=== PATIENT | male | born 1940 ===

== ENCOUNTER 2022-02-24 11:42 | Inpatient (IN) | payer MEDICARE ==
[~2022-02-24] VITALS: Ht 188 cm; Wt 85.5 kg
[2022-02-24] MEDS ORDERED: MULT-445 PO (13:29)
[2022-02-24] MEDS ORDERED: LORA0.5T21 PO (13:29)
[2022-02-24] MEDS ORDERED: POLY17PO5 PO (13:29)
[2022-02-24] MEDS ORDERED: METO-247 PO (13:29)
[2022-02-24] MEDS ORDERED: QUET100T4 PO (13:29)
[2022-02-24] MEDS ORDERED: ONDA4TAB12 PO (13:29)
[2022-02-24] MEDS ORDERED: HYDR-2868 PO (13:29)
[2022-02-24] MEDS ORDERED: TEMA15CA6 PO (13:29)
[2022-02-24] MEDS ORDERED: SERT50TA PO (13:29)
[2022-02-24] MEDS ORDERED: ATORVASTATIN CA80 MG PO (13:29)
[2022-02-24] MEDS ORDERED: QUET50TA5 PO (13:29)
[2022-02-24] MEDS ORDERED: GLUC-12 PO (13:29)
[2022-02-24] MEDS ORDERED: ACET325T21 PO (13:29)
[2022-02-24] MEDS ORDERED: ONDANSETRON ODT 4 MG TAB.RAPDIS PO PRN (13:30)
[2022-02-24] MEDS ORDERED: hydrALAZINE 25 MG TABLET PO PRN (13:30)
[2022-02-24] MEDS ORDERED: POLYETHYLENE GLYCOL 3350 17 GM PACKET. PO PRN (13:30)
[2022-02-24] MEDS ORDERED: MAG HYDROX/AL HYDROX/SIMETH 30 ML ORAL.SUSP PO PRN (13:45)
[2022-02-24] MEDS ORDERED: MAGNESIUM HYDROXIDE 2,400 MG/30 ML ORAL.SUSP. PO PRN (13:45)
[2022-02-24] MEDS ORDERED: ACETAMINOPHEN 325 MG TABLET PO PRN (13:45)
[2022-02-24] MEDS ORDERED: METHYL SALICYLATE/MENTHOL TOPICAL OINTMENT 57GM TUBE. TP PRN (13:45)
[2022-02-24 14:08] VITALS: BP 165/96
[2022-02-24 20:32] LABS: BASO % 0 % (0-3); EOS # 0.1 x10^3/uL (0.0-0.7); EOS % 1 % (0-3); HEMATOCRIT 36.7 % (39.0-53.0); HEMOGLOBIN 12.4 g/dL (13.0-17.5); LYMPH # 1.5 x10^3/uL (1.0-4.8); LYMPH % 18 % (24-48); MEAN CORPUSCULAR HEMOGLOBIN 33 pg (25-35); MEAN CORPUSCULAR HGB CONC 34 g/dL (31-37); MEAN CORPUSCULAR VOLUME 96 fL (79-100); MONO # 0.7 x10^3/uL (0.0-1.1); MONO % 8 % (0-9); NEUT % 73 % (31-73); PLATELET COUNT 224 x10^3/uL (140-400); RED BLOOD COUNT 3.82 x10^6/uL (4.30-5.70); RED CELL DISTRIBUTION WIDTH 13.4 % (11.5-14.5); WHITE BLOOD COUNT 8.3 x10^3/uL (4.0-11.0)
[2022-02-24] MEDS: TEMAZEPAM 15 MG CAPSULE PO SCH (20:33)
[2022-02-24] MEDS: QUEtiapine 50 MG TABLET. PO SCH (20:33)
[2022-02-24 20:48] LABS: ALBUMIN 3.9 g/dL (3.4-5.0); ALBUMIN/GLOBULIN RATIO 1.1 (1.0-1.7); CREATININE 1.8 mg/dL (0.7-1.3); GFR 36.4; MAGNESIUM 2.3 mg/dL (1.8-2.4); TOTAL BILIRUBIN 0.5 mg/dL (0.2-1.0); TOTAL PROTEIN 7.4 g/dL (6.4-8.2)
--- NOTE | 2022-02-24 21:54 | PDOC ---
Exam Note: Jimmy Note: Please also refer to the separate dictated note~for this date of service dictated separately.~Patient seen individually. Discussed the patient with Nursing staff reviewed the chart.~Reviewed interim history and current functioning. Reviewed vital signs,~Labs/ Radiology~and current medications noted below. Continue current treatment with the changes noted in the dictated addendum note Assessment: Vital Signs/I&O: Vital Signs Date Time Temp Pulse Resp B/P (MAP) Pulse Ox O2 Delivery O2 Flow Rate FiO2 02/24/22 14:08 97.8 79 18 165/96 (119) 99 Room Air Labs: Laboratory Tests Test 02/24/22 20:16 White Blood Count 8.3 x10^3/uL (4.0-11.0) Red Blood Count 3.82 x10^6/uL (4.30-5.70) L Hemoglobin 12.4 g/dL (13.0-17.5) L Hematocrit 36.7 % (39.0-53.0) L Mean Corpuscular Volume 96 fL (79-100) Mean Corpuscular Hemoglobin 33 pg (25-35) Mean Corpuscular Hemoglobin Concent 34 g/dL (31-37) Red Cell Distribution Width 13.4 % (11.5-14.5) Platelet Count 224 x10^3/uL (140-400) Neutrophils (%) (Auto) 73 % (31-73) Lymphocytes (%) (Auto) 18 % (24-48) L Monocytes (%) (Auto) 8 % (0-9) Eosinophils (%) (Auto) 1 % (0-3) Basophils (%) (Auto) 0 % (0-3) Neutrophils # (Auto) 6.0 x10^3uL (1.8-7.7) Lymphocytes # (Auto) 1.5 x10^3/uL (1.0-4.8) Monocytes # (Auto) 0.7 x10^3/uL (0.0-1.1) Eosinophils # (Auto) 0.1 x10^3/uL (0.0-0.7) Basophils # (Auto) 0.0 x10^3/uL (0.0-0.2) D-Dimer (Sadia) 1.00 mg/L (0.00-0.50) H Sodium Level 141 mmol/L (136-145) Potassium Level 4.0 mmol/L (3.5-5.1) Chloride Level 108 mmol/L (98-107) H Carbon Dioxide Level 26 mmol/L (21-32) Anion Gap 7 (6-14) Blood Urea Nitrogen 26 mg/dL (8-26) Creatinine 1.8 mg/dL (0.7-1.3) H Estimated GFR (Cockcroft-Gault) 36.4 BUN/Creatinine Ratio 14 (6-20) Glucose Level 110 mg/dL (70-99) H Calcium Level 9.0 mg/dL (8.5-10.1) Magnesium Level 2.3 mg/dL (1.8-2.4) Total Bilirubin 0.5 mg/dL (0.2-1.0) Aspartate Amino Transferase (AST) 17 U/L (15-37) Alanine Aminotransferase (ALT) 17 U/L (16-63) Alkaline Phosphatase 98 U/L (46-116) Total Protein 7.4 g/dL (6.4-8.2) Albumin 3.9 g/dL (3.4-5.0) Albumin/Globulin Ratio 1.1 (1.0-1.7) Current Medications: Meds: Current Medications Medications (Trade) Dose Ordered Sig/Valentino Route PRN Reason Start Time Stop Time Status Last Admin Dose Admin Quetiapine Fumarate (SEROquel) 50 mg QHS PO 02/24/22 21:00 02/24/22 20:33 Temazepam (Restoril) 15 mg QHS PO 02/24/22 21:00 02/24/22 20:33 I have reviewed the current psychotropics carefully including drug interactions. Risk benefit ratio favors no change other than as noted in my dictated progress note. Diagnosis: Problems: (1) Major neurocognitive disorder (2) Dementia in Alzheimer's disease with delusions (3) Dementia in Alzheimer's disease with depression (4) Dementia of the Alzheimer's type with early onset with behavioral disturbance (5) Dementia, vascular, with delusions (6) Dementia, vascular, with depression (7) Anxiety disorder, unspecified (8) Impulse control disorder, unspecified NOAH SEE MD Feb 24, 2022 21:54
[2022-02-24] MEDS: LORazepam 0.5 MG TABLET PO PRN (22:46)
[2022-02-24 22:52] VITALS: BP 110/81
--- NOTE | 2022-02-24 23:01 | HP ---
DATE OF SERVICE: 02/24/2022 ADMIT DATE: 02/24/2022 PSYCHIATRIC ADMISSION HISTORY/EVALUATION This note covers the elements not covered in my initial note of 02/24/2022. IDENTIFYING DATA: The patient is an 81-year-old male referred to us by [facility], who had been caring for him and following him while he was at home living with his , being managed for his progressively worsening dementia and the patient had been drinking dish soap, baby shampoo, cup full of ketchup and cooking oil. He is attempting to eat nonfood items including shaving cream and a bath comb, a cookie jar lid. He is having marked insomnia, throwing items including a printer and thinking it is funny. He was wandering, elopement from the house had been attempted by him. He was pulling items off the wall, putting on 's clothing. He is wearing three hats at the same time. He is a high risk of fall, letting the cat outside. He is turning on all the burners on the stove while the was sleeping and she would wake up and discover it. His behaviors were deemed dangerous, unmanageable, it failed outpatient psychiatric interventions resulting in this referral. CHIEF COMPLAINT: "I don't know." The patient responded after I asked him when he came here. He was walking up and down the hallway, banging on doors, but as I talked to him at some length, he was fairly calm. HISTORY OF PRESENT ILLNESS: The patient has been living at home with his . He has a history of dementia, Alzheimer's vascular type, but the has continued to manage him most recently with the support of hospice. He has had sleep and appetite changes, increasing confusion, paranoia. No active suicidal or homicidal ideation. No clear history of bipolar disorder. PAST PSYCHIATRIC HISTORY: As above. MEDICAL HISTORY: Sick sinus syndrome; chronic kidney disease, stage-III; pacemaker in place; cardiomyopathy; first-degree AV block; dyspnea; orthostatic hypotension; chronic constipation; status post CVA, right side; history of syncope; anemia; degenerative disk disease. ACCU-CHEKS: None. CODE STATUS: DNR. ALLERGIES: Negative. DIET: Regular. CURRENT PSYCHOTROPICS: Ativan 0.5 mg q.6 hours p.r.n. anxiety; Restoril 15 mg at bedtime; Seroquel 100 mg at bedtime, 100 mg in the morning and 50 mg at night; Zoloft 50 mg a day. FAMILY HISTORY: Noncontributory. SOCIAL HISTORY: The patient was being cared at home by his . No history of alcohol, drug abuse, physical, sexual, elder abuse. He is not known to be a perpetrator. 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 No alcohol or drug abuse history. REVIEW OF SYSTEMS: No CV, , pulmonary, eye, ENT system symptoms on review. MENTAL STATUS EXAM: Oriented to himself. Insight, judgment, recent and remote memory, attention, concentration, fund of knowledge poor consistent with his diagnosis. IMPRESSION: Major neurocognitive disorder; Alzheimer vascular with delusion; depression; behavioral disturbance; anxiety disorder, unspecified; impulse control disorder, unspecified. Rest as above. PLAN: Admit to Geropsychiatry unit at [facility]. I will see the patient daily individually from a psychiatric standpoint, medical followup, Dr. Wilkerson/Dr. Miller. Continue the patient on his current psychotropics, observe baseline, adjust as clinically indicated. ESTIMATED LENGTH OF STAY: 10 to 12 days. DISPOSITION PLANS: Possible snf placement when stable. ELIZABETH/REBECCA/RORO DR: Darren TID: [id number]
[2022-02-25 06:33] VITALS: BP 124/69
[2022-02-25] MEDS: METOPROLOL SUCC 24HR ER 50 MG TAB.ER.24H. PO SCH (07:45)
[2022-02-25] MEDS: MULTIVITAMIN with MINERAL TABLET. PO SCH (07:45)
[2022-02-25] MEDS: QUEtiapine 100 MG TABLET. PO SCH (07:45)
[2022-02-25] MEDS: GLUCOSAMINE/CHOND 500/400MG CAPSULE PO SCH (07:45)
[2022-02-25] MEDS ORDERED: SERTRALINE 50 MG TABLET. PO SCH (09:00)
[2022-02-25] MEDS ORDERED: ATORVASTATIN CALCIUM 20 MG TABLET PO SCH (09:00)
[2022-02-25 12:14] LABS: THYROXINE 4.8 ug/dL (4.5-12.0)
[2022-02-25 15:56] LABS: CHOLESTEROL/HDL RATIO 4.7; THYROID STIM HORMONE (TSH) 3.666 uIU/mL (0.358-3.740)
[2022-02-25 16:09] VITALS: BP 156/80
[2022-02-25] MEDS: LORazepam 0.5 MG TABLET PO PRN (18:28)
[2022-02-25] MEDS: ATORVASTATIN CALCIUM 20 MG TABLET PO SCH (20:48)
[2022-02-25] MEDS: TEMAZEPAM 15 MG CAPSULE PO SCH (20:48)
[2022-02-25] MEDS: QUEtiapine 50 MG TABLET. PO SCH (20:48)
--- NOTE | 2022-02-25 21:35 | PDOC ---
Exam Note: Jimmy Note: Please also refer to the separate dictated note~for this date of service dictated separately.~Patient seen individually. Discussed the patient with Nursing staff reviewed the chart.~Reviewed interim history and current functioning. Reviewed vital signs,~Labs/ Radiology~and current medications noted below. Continue current treatment with the changes noted in the dictated addendum note Assessment: Vital Signs/I&O: Vital Signs Date Time Temp Pulse Resp B/P (MAP) Pulse Ox O2 Delivery O2 Flow Rate FiO2 02/25/22 16:09 98.1 74 20 156/80 (105) 97 02/25/22 06:33 Room Air I & O 02/24/22 02/24/22 02/25/22 15:00 23:00 07:00 Intake Total 240 ml 340 ml Balance 240 ml 340 ml Labs: Laboratory Tests Test 02/25/22 06:26 SARS-CoV-2 (PCR) Not detected (NOT DETECTD) Current Medications: Meds: Laboratory Tests Test 02/25/22 06:26 Coronavirus (COVID-19)(PCR) Not detected Current Medications Medications (Trade) Dose Ordered Sig/Valentino Route PRN Reason Start Time Stop Time Status Last Admin Dose Admin Acetaminophen (Tylenol) 650 mg PRN Q4HRS PRN PO MILD PAIN / TEMP > 100.3'F 02/24/22 13:30 Hydralazine HCl (Apresoline) 25 mg PRN QID PRN PO HYPERTENSION 02/24/22 13:30 Lorazepam (Ativan) 0.5 mg PRN Q6HRS PRN PO ANXIETY 02/24/22 13:30 02/25/22 18:28 Ondansetron HCl (Zofran Odt) 4 mg PRN Q4HRS PRN PO NAUSEA/VOMITING 02/24/22 13:30 Polyethylene Glycol (miraLAX) 17 gm PRN DAILY PRN PO 1ST CHOICE CONSTIPATION 02/24/22 13:30 Quetiapine Fumarate (SEROquel) 50 mg QHS PO 02/24/22 21:00 02/25/22 20:48 Quetiapine Fumarate (SEROquel) 100 mg DAILY PO 02/25/22 09:00 02/25/22 07:45 Sertraline HCl (Zoloft) 50 mg DAILY PO 02/25/22 09:00 02/25/22 17:01 DC 02/25/22 07:45 Temazepam (Restoril) 15 mg QHS PO 02/24/22 21:00 02/25/22 20:48 Atorvastatin Calcium (Lipitor) 80 mg DAILY PO 02/25/22 09:00 02/25/22 11:05 DC Glucosamine/ Chondroitin (Glucosamine-Chondroitin 500/400mg) 1 cap DAILY PO 02/25/22 09:00 02/25/22 07:45 Metoprolol Succinate (Toprol Xl) 100 mg DAILY PO 02/25/22 09:00 02/25/22 07:45 Multivitamins/ Calcium (Thera-M Plus) 1 tab DAILY PO 02/25/22 09:00 02/25/22 07:45 Acetaminophen (Tylenol) 650 mg PRN Q6HRS PRN PO MILD PAIN / TEMP > 100.3'F 02/24/22 13:45 Cancel Multi-Ingredient Ointment (Analgesic Slovan) 1 marifer PRN QID PRN TP MUSCLE PAIN 02/24/22 13:45 Al Hydroxide/Mg Hydroxide (Mylanta Plus Xs) 15 ml PRN AFTMEALHC PRN PO DYSPEPSIA 02/24/22 13:45 Magnesium Hydroxide (Milk Of Magnesia) 2,400 mg PRN QHS PRN PO 2ND CHOICE CONSTIPATION 02/24/22 13:45 Atorvastatin Calcium (Lipitor) 80 mg HS PO 02/25/22 21:00 02/25/22 20:48 Sertraline HCl (Zoloft) 75 mg DAILY PO 02/26/22 09:00 Current Medications Medications (Trade) Dose Ordered Sig/Valentino Route PRN Reason Start Time Stop Time Status Last Admin Dose Admin Quetiapine Fumarate (SEROquel) 100 mg DAILY PO 02/25/22 09:00 02/25/22 07:45 Sertraline HCl (Zoloft) 50 mg DAILY PO 02/25/22 09:00 02/25/22 17:01 DC 02/25/22 07:45 Glucosamine/ Chondroitin (Glucosamine-Chondroitin 500/400mg) 1 cap DAILY PO 02/25/22 09:00 02/25/22 07:45 Metoprolol Succinate (Toprol Xl) 100 mg DAILY PO 02/25/22 09:00 02/25/22 07:45 Multivitamins/ Calcium (Thera-M Plus) 1 tab DAILY PO 02/25/22 09:00 02/25/22 07:45 Atorvastatin Calcium (Lipitor) 80 mg HS PO 02/25/22 21:00 02/25/22 20:48 I have reviewed the current psychotropics carefully including drug interactions. Risk benefit ratio favors no change other than as noted in my dictated progress note. Diagnosis: Problems: (1) Impulse control disorder, unspecified (2) Anxiety disorder, unspecified (3) Dementia, vascular, with depression (4) Dementia, vascular, with delusions (5) Dementia in Alzheimer's disease with depression (6) Dementia in Alzheimer's disease with delusions (7) Dementia of the Alzheimer's type with early onset with behavioral disturbance (8) Major neurocognitive disorder NOAH SEE MD Feb 25, 2022 21:35
[2022-02-26 00:52] LABS: BACTERIA,URINE 0 /HPF (0-FEW); CLARITY,URINE CLEAR; COLOR,URINE YELLOW; GLUCOSE,URINE NEG (NEG); NITRITE,URINE NEG (NEG); RBC,URINE 20-40 /HPF (0-2); SQUAMOUS EPITHELIAL CELL,UR OCC /LPF; UROBILINOGEN,URINE 0.2 mg/dL (0.2 mg/dL); WBC,URINE OCC /HPF (0-4)
--- NOTE | 2022-02-26 01:01 | CONS ---
DATE OF CONSULTATION: 02/25/2022 ATTENDING PHYSICIAN: Dr. See. We are asked to see this patient for medical consultation. HISTORY OF PRESENT ILLNESS: The patient is an 81-year-old gentleman who has underlying dementia. He was referred here for behavioral issues. He is drinking dish soap, eating non-edible things. He is throwing things. He is very confused. He is wandering. He is admitted for inpatient care. PAST MEDICAL HISTORY: Significant for sick sinus syndrome with a permanent pacemaker, orthostatic hypotension, Alzheimer's dementia, profound depression, chronic kidney disease stage 3 and chronic constipation. CURRENT MEDICATIONS: Reviewed. He was taking Lipitor, hydralazine, lorazepam, metoprolol, multivitamin, ondansetron, MiraLax, Seroquel, Zoloft and Restoril at bedtime. ALLERGIES: He has no known drug allergies. SOCIAL HISTORY: He is a nonsmoker, nondrinker. FAMILY HISTORY: Unobtainable. REVIEW OF SYSTEMS: Unfortunately, is unobtainable. PHYSICAL EXAMINATION: GENERAL: When I saw him, this is a pleasant elderly gentleman who is fully ambulatory. He was wandering and had to be redirected. VITAL SIGNS: Initial vital signs showed a blood pressure of 124/69 mmHg, pulse is 72 and regular. He was afebrile, oxygen saturation 99% on room air. HEENT: Head is without trauma. Pupils are reactive. Sclerae nonicteric. Oropharynx clear. NECK: Supple. LUNGS: Good breath sounds. CARDIOVASCULAR: Showed regular heart tones. No gallop. ABDOMEN: Soft. EXTREMITIES: I could not examine him. He refused to sit down or lie down. So therefore, I did a cursory physical exam on his upper torso. SKIN: Warm and dry. PERTINENT LABORATORY STUDIES: His hemoglobin is 12.4 g/dL with a white count of 8300. Electrolytes within normal range. Creatinine is 1.8 mg/dL. Nonfasting blood sugar 110. I suspect his creatinine is his baseline. ASSESSMENT: 1. This 81-year-old gentleman has profound dementia with behavioral issues. 2. Chronic kidney disease stage 3. 3. History of permanent pacemaker and sick sinus syndrome. 4. This patient is stable from medical standpoint. RECOMMENDATIONS: I have reviewed his medicines and these should be continued. Thank you again for asking me to see this patient for medical consultation. We should gladly follow along during his inpatient care. REBECCA DR: Elva TID: [id number] CC: NOAH SEE MD
[2022-02-26 02:07] LABS: HEMOGLOBIN A1C 5.8 % (4.8-5.6)
--- NOTE | 2022-02-26 05:32 | EKG ---
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
[2022-02-26 06:05] VITALS: BP 135/75
--- NOTE | 2022-02-26 08:47 | PDOC ---
Exam Note: Jimmy Note: This note is a late entry for 02/25/2022 covers elements not covered in my initial note. Subjective: The patient was seen individually on 02/25/2022, discussed and reviewed the chart with Samantha HAMPTON. The patient slept 5 hours previous night. He remains confused, wandering up and down the hallway. Speech is word salad. We are trying to get a UA to make sure UTI is not worsening his confusion. He is disorganized today. He tore up his soiled brief and was trying to flush it in the toilet. We will go ahead and do a CT head given his history of hemorrhagic stroke with midline shift. Review of Systems: No CV, , pulmonary, eye, ENT system symptoms on review. Reliability poor. Mental Status Exam: Patient is oriented to himself. Insight and judgment, recent and remote memory, attention and concentration, fund of knowledge is poor consistent with his diagnoses. Laboratory Data: Reviewed. Impression: Major neurocognitive disorder, Alzheimer, vascular with delusion, depression, behavioral disturbance. Anxiety disorder unspecified. Impulse control disorder unspecified. Plan: Maintain rest of the psychotropics unchanged. Reviewed drug interactions, risk-benefit ratio. Increase certainly Zoloft from 50 mg a day to 75 mg a day. He was banging on the doors trying to open the doors, had made one of latches almost unworkable, somewhat obsessive. We will adjust his psychotropics as clinically indicated. Assessment: Vital Signs/I&O: Vital Signs Date Time Temp Pulse Resp B/P (MAP) Pulse Ox O2 Delivery O2 Flow Rate FiO2 02/26/22 06:05 98.1 66 16 135/75 (95) 98 Room Air I & O 02/25/22 02/25/22 02/26/22 15:00 23:00 07:00 Intake Total 580 ml 480 ml Output Total 1 ml Balance 580 ml 479 ml Labs: Laboratory Tests Test 02/25/22 23:52 Urine Collection Type U cath Urine Color Yellow Urine Clarity Clear Urine pH 5.5 Urine Specific [place] >=1.030 Urine Protein Trace (NEG-TRACE) Urine Glucose (UA) Neg mg/dL (NEG) Urine Ketones (Stick) Neg mg/dL (NEG) Urine Blood Mod (NEG) Urine Nitrite Neg (NEG) Urine Bilirubin Neg (NEG) Urine Urobilinogen Dipstick 0.2 mg/dL (0.2 mg/dL) Urine Leukocyte Esterase Neg (NEG) Urine RBC 20-40 /HPF (0-2) Urine WBC Occ /HPF (0-4) Urine Squamous Epithelial Cells Occ /LPF Urine Bacteria 0 /HPF (0-FEW) Current Medications: Meds: Current Medications Medications (Trade) Dose Ordered Sig/Valentino Route PRN Reason Start Time Stop Time Status Last Admin Dose Admin Quetiapine Fumarate (SEROquel) 100 mg DAILY PO 02/25/22 09:00 02/25/22 07:45 Sertraline HCl (Zoloft) 50 mg DAILY PO 02/25/22 09:00 02/25/22 17:01 DC 02/25/22 07:45 Glucosamine/ Chondroitin (Glucosamine-Chondroitin 500/400mg) 1 cap DAILY PO 02/25/22 09:00 02/25/22 07:45 Metoprolol Succinate (Toprol Xl) 100 mg DAILY PO 02/25/22 09:00 02/25/22 07:45 Multivitamins/ Calcium (Thera-M Plus) 1 tab DAILY PO 02/25/22 09:00 02/25/22 07:45 Atorvastatin Calcium (Lipitor) 80 mg HS PO 02/25/22 21:00 02/25/22 20:48 I have reviewed the current psychotropics carefully including drug interactions. Risk benefit ratio favors no change other than as noted in my dictated progress note. Diagnosis: Problems: (1) Impulse control disorder, unspecified (2) Anxiety disorder, unspecified (3) Dementia, vascular, with depression (4) Dementia, vascular, with delusions (5) Dementia in Alzheimer's disease with depression (6) Dementia in Alzheimer's disease with delusions (7) Dementia of the Alzheimer's type with early onset with behavioral disturbance (8) Major neurocognitive disorder NOAH SEE MD Feb 26, 2022 08:47
[2022-02-26] MEDS: QUEtiapine 100 MG TABLET. PO SCH (09:22)
[2022-02-26] MEDS: METOPROLOL SUCC 24HR ER 50 MG TAB.ER.24H. PO SCH (09:22)
[2022-02-26] MEDS: GLUCOSAMINE/CHOND 500/400MG CAPSULE PO SCH (09:23)
[2022-02-26] MEDS: SERTRALINE 50 MG TABLET. PO SCH (09:23)
[2022-02-26] MEDS: MULTIVITAMIN with MINERAL TABLET. PO SCH (09:23)
--- NOTE | 2022-02-26 11:46 | RAD ---
EXAM: CT head without contrast INDICATION: Establish baseline COMPARISON: CT head 12/03/2021 TECHNIQUE: Axial CT imaging through the head without intravenous contrast. Sagittal and coronal refor mats were obtained. One or more of the following individualized dose reduction techniques were utilized for this examinat ion: 1. Automated exposure control 2. Adjustment of the mA and/or kV according to patient size 3. Use of iterative reconstruction technique. FINDINGS: No intracranial hemorrhage, acute infarct, or mass lesion. Encephalomalacia in the right frontal lobe is unchanged. The ventricles and sulci are moderately enlarged, unchanged. The skull and scalp are i ntact. Paranasal sinuses and mastoid air cells are clear. Globes and orbits are intact. IMPRESSION: 1. No acute intracranial abnormality. 2. Unchanged right frontal encephalomalacia. 3. Unchanged moderate cerebral volume loss. Electronically signed by: Gina Morelos MD (02/26/2022 11:43 AM) [id number]
[2022-02-26 16:17] VITALS: BP 143/77
--- NOTE | 2022-02-26 17:30 | TX PLAN ---
Interdisciplinary Tx Plan Admission Information Feb 24, 2022 at 12:12 Legal Status (on Admission): Voluntary DPOA/Guardian Name: Jesusita Null Contact Other Contact Name: Jesusita Null Other Contact Verified Code Status: DNR Allergies: Coded Allergies: No Known Drug Allergies (Unverified , 02/24/22) Diagnoses Primary Diagnosis: Dementia with BS Reasons for Admission: Agitated, Sig. Change Sleep, Confusion/Disoriented, Poor impulse control, Other Problem in Patient's Words: Declining fast cognitively and unable to identify safety cues Additional Admission Comments: According to the intake, pt was drinking dish soap/baby shampoo and other non-food items (shaving cream, bath bomb, cookie jar lid), insomnia, turning on burners on the stove while wandering at HS, throwing things and thinks it's funny, wandering/eloping from the house, pulling items from the wall, putting on 's clothes, etc Problems Active Problems: confused disorganized wandering Inactive Problems: Medication compliant Pt Strengths/Limitations Ability for [place]: Poor Cognitive Functioning/Ability: Poor Communication Skills/Ability: Fair Financial Resources: Fair Insight/Judgement: Poor Intellectual Ability: Fair Physical Health: Poor Social Skills: Fair Stability in Family: Good Stability in School/Work: Poor Verbal Skills: Fair Discharge Criteria Discharge Criteria: Adequate arrangements @DC, Improved behavior, Improved mood/thought Preliminary Discharge Plan Preliminary DC Plan: Placement Needed Special Precautions Fall Risk: Low Initial D/C Plan Will need referrals for placement. Identified Discharge Needs: Referrals to a higher level of care Currently Utilized Resources Currently Utilized Resources/P: PCP Referrals Community Resources: Referrals for a higher level of care Identified Problems/Hx/Goals Objectives/Short-Term Goals Short Term Goals: Dec. Outbursts, Medication Stabilization, Monitor Med Effects, Prevent Deterioration, Promote Coping Skill Short Term Goals in Patient's: N/A Interventions/Frequency Staff Interventions/Frequency&: Psychiatrist to assess pt at least 3x per week for medication management Social Work to assess pt at least 2x per week to identify barriers to care and discharge planning. Nursing to assess medication effects, behavior modification and complete 15 minute checks Encourage participation in group activities (if applicable) or 1:1 engagement based off activity dept goals. 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 Pt officially retired from it all in 2018. Education: Pt graduated from high school (12th grade) and then attended [employer] receiving his degree in Education; which he never used. Community Follow-up PCP Community Provider/Family Inpu: I want him home but I just don't think I can keep him safe, so we'll look at placement Treatment Plan Explained Patient/Esthetic Dermatologist had this treatment plan explained to him/her as indicated by the signature below and has been given the opportunity to ask questions and make suggestions: Date: Patient/Esthetic Dermatologist Signature: Patient/Esthetic Dermatologist Decline: No (Pt family is active in pt care.) HOWARD WALSH Feb 26, 2022 17:30
[2022-02-26] MEDS: QUEtiapine 50 MG TABLET. PO SCH (20:07)
[2022-02-26] MEDS: TEMAZEPAM 15 MG CAPSULE PO SCH (20:07)
[2022-02-26] MEDS: ATORVASTATIN CALCIUM 20 MG TABLET PO SCH (20:08)
--- NOTE | 2022-02-26 21:42 | PDOC ---
Exam Note: Jimmy Note: Please also refer to the separate dictated note~for this date of service dictated separately.~Patient seen individually. Discussed the patient with Nursing staff reviewed the chart.~Reviewed interim history and current functioning. Reviewed vital signs,~Labs/ Radiology~and current medications noted below. Continue current treatment with the changes noted in the dictated addendum note Assessment: Vital Signs/I&O: Vital Signs Date Time Temp Pulse Resp B/P (MAP) Pulse Ox O2 Delivery O2 Flow Rate FiO2 02/26/22 16:17 98.1 64 18 143/77 (99) 97 02/26/22 06:05 Room Air I & O 02/25/22 02/25/22 02/26/22 15:00 23:00 07:00 Intake Total 580 ml 480 ml Output Total 1 ml Balance 580 ml 479 ml Labs: Laboratory Tests Test 02/25/22 23:52 Urine Collection Type U cath Urine Color Yellow Urine Clarity Clear Urine pH 5.5 Urine Specific [place] >=1.030 Urine Protein Trace (NEG-TRACE) Urine Glucose (UA) Neg mg/dL (NEG) Urine Ketones (Stick) Neg mg/dL (NEG) Urine Blood Mod (NEG) Urine Nitrite Neg (NEG) Urine Bilirubin Neg (NEG) Urine Urobilinogen Dipstick 0.2 mg/dL (0.2 mg/dL) Urine Leukocyte Esterase Neg (NEG) Urine RBC 20-40 /HPF (0-2) Urine WBC Occ /HPF (0-4) Urine Squamous Epithelial Cells Occ /LPF Urine Bacteria 0 /HPF (0-FEW) Current Medications: Meds: Laboratory Tests Test 02/25/22 23:52 Urine Collection Type U cath Urine Color Yellow Urine Clarity Clear Urine pH 5.5 Urine Specific [place] >=1.030 Urine Protein Trace Urine Glucose (UA) Neg mg/dL Urine Ketones (Stick) Neg mg/dL Urine Blood Mod Urine Nitrite Neg Urine Bilirubin Neg Urine Urobilinogen Dipstick 0.2 mg/dL Urine Leukocyte Esterase Neg Urine RBC 20-40 /HPF Urine WBC Occ /HPF Urine Squamous Epithelial Cells Occ /LPF Urine Bacteria 0 /HPF Current Medications Medications (Trade) Dose Ordered Sig/Valentino Route PRN Reason Start Time Stop Time Status Last Admin Dose Admin Acetaminophen (Tylenol) 650 mg PRN Q4HRS PRN PO MILD PAIN / TEMP > 100.3'F 02/24/22 13:30 Hydralazine HCl (Apresoline) 25 mg PRN QID PRN PO HYPERTENSION 02/24/22 13:30 Lorazepam (Ativan) 0.5 mg PRN Q6HRS PRN PO ANXIETY 02/24/22 13:30 02/25/22 18:28 Ondansetron HCl (Zofran Odt) 4 mg PRN Q4HRS PRN PO NAUSEA/VOMITING 02/24/22 13:30 Polyethylene Glycol (miraLAX) 17 gm PRN DAILY PRN PO 1ST CHOICE CONSTIPATION 02/24/22 13:30 Quetiapine Fumarate (SEROquel) 50 mg QHS PO 02/24/22 21:00 02/26/22 20:07 Quetiapine Fumarate (SEROquel) 100 mg DAILY PO 02/25/22 09:00 02/26/22 09:22 Sertraline HCl (Zoloft) 50 mg DAILY PO 02/25/22 09:00 02/25/22 17:01 DC 02/25/22 07:45 Temazepam (Restoril) 15 mg QHS PO 02/24/22 21:00 02/26/22 20:07 Atorvastatin Calcium (Lipitor) 80 mg DAILY PO 02/25/22 09:00 02/25/22 11:05 DC Glucosamine/ Chondroitin (Glucosamine-Chondroitin 500/400mg) 1 cap DAILY PO 02/25/22 09:00 02/26/22 09:23 Metoprolol Succinate (Toprol Xl) 100 mg DAILY PO 02/25/22 09:00 02/26/22 09:22 Multivitamins/ Calcium (Thera-M Plus) 1 tab DAILY PO 02/25/22 09:00 02/26/22 09:23 Acetaminophen (Tylenol) 650 mg PRN Q6HRS PRN PO MILD PAIN / TEMP > 100.3'F 02/24/22 13:45 Cancel Multi-Ingredient Ointment (Analgesic [place]) 1 marifer PRN QID PRN TP MUSCLE PAIN 02/24/22 13:45 Al Hydroxide/Mg Hydroxide (Mylanta Plus Xs) 15 ml PRN AFTMEALHC PRN PO DYSPEPSIA 02/24/22 13:45 Magnesium Hydroxide (Milk Of Magnesia) 2,400 mg PRN QHS PRN PO 2ND CHOICE CONSTIPATION 02/24/22 13:45 Atorvastatin Calcium (Lipitor) 80 mg HS PO 02/25/22 21:00 02/26/22 20:08 Sertraline HCl (Zoloft) 75 mg DAILY PO 02/26/22 09:00 02/26/22 09:23 Divalproex Sodium (Depakote Sprinkles) 125 mg 0900,1700 PO 02/27/22 09:00 Current Medications Medications (Trade) Dose Ordered Sig/Valentino Route PRN Reason Start Time Stop Time Status Last Admin Dose Admin Sertraline HCl (Zoloft) 75 mg DAILY PO 02/26/22 09:00 02/26/22 09:23 I have reviewed the current psychotropics carefully including drug interactions. Risk benefit ratio favors no change other than as noted in my dictated progress note. 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
[2022-02-27 06:13] VITALS: BP 135/70
--- NOTE | 2022-02-27 08:31 | PDOC ---
Exam Note: Jimmy Note: This note is a late entry for 02/26/2022 covers elements not covered in my initial note. Subjective: The patient was seen individually on 02/26/2022, discussed and reviewed the chart with Cindy HAMPTON. The patient slept 1-1/2 hours previous night. Overall he has been less agitated. Today he remains confused. At night he was wandering, banging on doors, calm and pleasant today. Review of Systems: No CV, , pulmonary, eye, ENT system symptoms on review. Reliability poor. Mental Status Exam: Patient is oriented to himself. He was walking up and down the corridor which is where I met with him. I asked him about his Jesusita. He did not seemed to recognize her name either. Insight and judgment, recent and remote memory, attention and concentration, fund of knowledge is poor consistent with his diagnoses. Laboratory Data: Reviewed. Impression: Major neurocognitive disorder, Alzheimer, vascular with delusion, depression, behavioral disturbance. Anxiety disorder unspecified. Impulse control disorder unspecified. Plan: Maintain rest of the psychotropics unchanged. Reviewed drug interactions, risk-benefit ratio. We will start Depakote Sprinkle 125 mg 9 a.m. 5 p.m. Check CBC, CMP, valproic acid level, ammonia level in 3 days. Adjust further as clinically indicated. Assessment: Vital Signs/I&O: Vital Signs Date Time Temp Pulse Resp B/P (MAP) Pulse Ox O2 Delivery O2 Flow Rate FiO2 02/27/22 06:13 97.3 71 18 135/70 (91) 93 02/26/22 06:05 Room Air I & O 02/26/22 02/26/22 02/27/22 14:59 22:59 06:59 Intake Total 240 ml 600 ml Balance 240 ml 600 ml Current Medications: Meds: Current Medications Medications (Trade) Dose Ordered Sig/Valentino Route PRN Reason Start Time Stop Time Status Last Admin Dose Admin Sertraline HCl (Zoloft) 75 mg DAILY PO 02/26/22 09:00 02/26/22 09:23 I have reviewed the current psychotropics carefully including drug interactions. Risk benefit ratio favors no change other than as noted in my dictated progress note. 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
[2022-02-27] MEDS: MULTIVITAMIN with MINERAL TABLET. PO SCH (09:23)
[2022-02-27] MEDS: DIVALPROEX 125 MG CAP.SPRINK PO SCH ×2 (09:24→17:28)
[2022-02-27] MEDS: QUEtiapine 100 MG TABLET. PO SCH (09:24)
[2022-02-27] MEDS: SERTRALINE 50 MG TABLET. PO SCH (09:24)
[2022-02-27] MEDS: GLUCOSAMINE/CHOND 500/400MG CAPSULE PO SCH (09:24)
[2022-02-27] MEDS: METOPROLOL SUCC 24HR ER 50 MG TAB.ER.24H. PO SCH (09:24)
[2022-02-27 15:44] VITALS: BP 136/78
--- NOTE | 2022-02-27 21:28 | PDOC ---
Exam Note: Jimmy Note: Please also refer to the separate dictated note~for this date of service dictated separately.~Patient seen individually. Discussed the patient with Nursing staff reviewed the chart.~Reviewed interim history and current functioning. Reviewed vital signs,~Labs/ Radiology~and current medications noted below. Continue current treatment with the changes noted in the dictated addendum note Assessment: Vital Signs/I&O: Vital Signs Date Time Temp Pulse Resp B/P (MAP) Pulse Ox O2 Delivery O2 Flow Rate FiO2 02/27/22 15:44 97.6 62 19 136/78 (97) 97 02/26/22 06:05 Room Air I & O 02/26/22 02/26/22 02/27/22 15:00 23:00 07:00 Intake Total 240 ml 600 ml Balance 240 ml 600 ml Current Medications: Meds: Current Medications Medications (Trade) Dose Ordered Sig/Valentino Route PRN Reason Start Time Stop Time Status Last Admin Dose Admin Acetaminophen (Tylenol) 650 mg PRN Q4HRS PRN PO MILD PAIN / TEMP > 100.3'F 02/24/22 13:30 Hydralazine HCl (Apresoline) 25 mg PRN QID PRN PO HYPERTENSION 02/24/22 13:30 Lorazepam (Ativan) 0.5 mg PRN Q6HRS PRN PO ANXIETY 02/24/22 13:30 02/25/22 18:28 Ondansetron HCl (Zofran Odt) 4 mg PRN Q4HRS PRN PO NAUSEA/VOMITING 02/24/22 13:30 Polyethylene Glycol (miraLAX) 17 gm PRN DAILY PRN PO 1ST CHOICE CONSTIPATION 02/24/22 13:30 Quetiapine Fumarate (SEROquel) 50 mg QHS PO 02/24/22 21:00 02/26/22 20:07 Quetiapine Fumarate (SEROquel) 100 mg DAILY PO 02/25/22 09:00 02/27/22 09:24 Sertraline HCl (Zoloft) 50 mg DAILY PO 02/25/22 09:00 02/25/22 17:01 DC 02/25/22 07:45 Temazepam (Restoril) 15 mg QHS PO 02/24/22 21:00 02/26/22 20:07 Atorvastatin Calcium (Lipitor) 80 mg DAILY PO 02/25/22 09:00 02/25/22 11:05 DC Glucosamine/ Chondroitin (Glucosamine-Chondroitin 500/400mg) 1 cap DAILY PO 02/25/22 09:00 02/27/22 09:24 Metoprolol Succinate (Toprol Xl) 100 mg DAILY PO 02/25/22 09:00 02/27/22 09:24 Multivitamins/ Calcium (Thera-M Plus) 1 tab DAILY PO 02/25/22 09:00 02/27/22 09:23 Acetaminophen (Tylenol) 650 mg PRN Q6HRS PRN PO MILD PAIN / TEMP > 100.3'F 02/24/22 13:45 Cancel Multi-Ingredient Ointment (Analgesic [place]) 1 marifer PRN QID PRN TP MUSCLE PAIN 02/24/22 13:45 Al Hydroxide/Mg Hydroxide (Mylanta Plus Xs) 15 ml PRN AFTMEALHC PRN PO DYSPEPSIA 02/24/22 13:45 Magnesium Hydroxide (Milk Of Magnesia) 2,400 mg PRN QHS PRN PO 2ND CHOICE CONSTIPATION 02/24/22 13:45 Atorvastatin Calcium (Lipitor) 80 mg HS PO 02/25/22 21:00 02/26/22 20:08 Sertraline HCl (Zoloft) 75 mg DAILY PO 02/26/22 09:00 02/27/22 09:24 Divalproex Sodium (Depakote Sprinkles) 125 mg 0900,1700 PO 02/27/22 09:00 02/27/22 17:28 Mirtazapine (Remeron) 7.5 mg QHS PO 02/27/22 21:00 Current Medications Medications (Trade) Dose Ordered Sig/Valentino Route PRN Reason Start Time Stop Time Status Last Admin Dose Admin Divalproex Sodium (Depakote Sprinkles) 125 mg 0900,1700 PO 02/27/22 09:00 02/27/22 17:28 I have reviewed the current psychotropics carefully including drug interactions. Risk benefit ratio favors no change other than as noted in my dictated progress note. Diagnosis: Problems: (1) Impulse control disorder, unspecified (2) Anxiety disorder, unspecified (3) Dementia, vascular, with depression (4) Dementia, vascular, with delusions (5) Dementia in Alzheimer's disease with depression (6) Dementia in Alzheimer's disease with delusions (7) Dementia of the Alzheimer's type with early onset with behavioral distur bance (8) Major neurocognitive disorder NOAH SEE MD Feb 27, 2022 21:28
[2022-02-27] MEDS: ATORVASTATIN CALCIUM 20 MG TABLET PO SCH (22:10)
[2022-02-27] MEDS: MIRTAZAPINE 7.5 MG TABLET. PO SCH (22:10)
[2022-02-27] MEDS: QUEtiapine 50 MG TABLET. PO SCH (22:10)
[2022-02-27] MEDS: LORazepam 0.5 MG TABLET PO PRN (22:10)
[2022-02-27] MEDS: TEMAZEPAM 15 MG CAPSULE PO SCH (22:11)
[2022-02-28 06:23] VITALS: BP 127/71
[2022-02-28] MEDS: MULTIVITAMIN with MINERAL TABLET. PO SCH (08:45)
[2022-02-28] MEDS: QUEtiapine 100 MG TABLET. PO SCH (08:45)
[2022-02-28] MEDS: METOPROLOL SUCC 24HR ER 50 MG TAB.ER.24H. PO SCH (08:45)
[2022-02-28] MEDS: SERTRALINE 50 MG TABLET. PO SCH (08:47)
[2022-02-28] MEDS: GLUCOSAMINE/CHOND 500/400MG CAPSULE PO SCH (08:47)
[2022-02-28] MEDS: DIVALPROEX 125 MG CAP.SPRINK PO SCH ×2 (08:47→17:42)
--- NOTE | 2022-02-28 09:02 | PDOC ---
Exam Note: Jimmy Note: This note is a late entry for 02/27/2022 covers elements not covered in my initial note. Subjective: The patient was reviewed at treatment team meeting individually in the morning on 02/27/2022 with Diann Corea, Trista Copeland, and Karena Rollins (social work supervisor), Anju, activity therapy, and Heike HAMPTON, discussed and reviewed the chart. The patient slept 7 hours previous night. His Jesusita was in the treatment team meeting. Average sleep 4 hours. Appetite 84%. He has been anxious, restless, exit seeking, trying to bang at the partition plascencia. described how he was more and more confused at home and she at one point found his shoes in the refrigerator. She is accepting to looking for placement for him. Review of Systems: No CV, , pulmonary, eye, ENT system symptoms on review. Reliability poor. Mental Status Exam: Patient is oriented to himself. I met with him in the corridor outside his room. Insight and judgment, recent and remote memory, attention and concentration, fund of knowledge is poor consistent with his diagnoses. Laboratory Data: Reviewed. Impression: Major neurocognitive disorder, Alzheimer, vascular with delusion, depression, behavioral disturbance. Anxiety disorder unspecified. Impulse control disorder unspecified. Plan: Maintain rest of the psychotropics unchanged. Reviewed drug interactions, risk-benefit ratio. Adjust Depakote as clinically indicated. Assessment: Vital Signs/I&O: Vital Signs Date Time Temp Pulse Resp B/P (MAP) Pulse Ox O2 Delivery O2 Flow Rate FiO2 02/28/22 08:45 70 127/71 02/28/22 06:23 97.7 18 97 Room Air I & O 02/27/22 02/27/22 02/28/22 15:00 23:00 07:00 Intake Total 720 ml 440 ml Balance 720 ml 440 ml Current Medications: Meds: Current Medications Medications (Trade) Dose Ordered Sig/Valentino Route PRN Reason Start Time Stop Time Status Last Admin Dose Admin Mirtazapine (Remeron) 7.5 mg QHS PO 02/27/22 21:00 02/27/22 22:10 I have reviewed the current psychotropics carefully including drug interactions. Risk benefit ratio favors no change other than as noted in my dictated progress note. 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
[2022-02-28 15:26] VITALS: BP 120/72
[2022-02-28] MEDS: MIRTAZAPINE 7.5 MG TABLET. PO SCH (20:47)
[2022-02-28] MEDS: QUEtiapine 50 MG TABLET. PO SCH (20:47)
[2022-02-28] MEDS: ATORVASTATIN CALCIUM 20 MG TABLET PO SCH (20:47)
[2022-02-28] MEDS: TEMAZEPAM 15 MG CAPSULE PO SCH (20:47)
--- NOTE | 2022-02-28 21:46 | PDOC ---
Exam Note: Jimmy Note: Please also refer to the separate dictated note~for this date of service dictated separately.~Patient seen individually. Discussed the patient with Nursing staff reviewed the chart.~Reviewed interim history and current functioning. Reviewed vital signs,~Labs/ Radiology~and current medications noted below. Continue current treatment with the changes noted in the dictated addendum note Assessment: Vital Signs/I&O: Vital Signs Date Time Temp Pulse Resp B/P (MAP) Pulse Ox O2 Delivery O2 Flow Rate FiO2 02/28/22 15:26 97.8 72 18 120/72 (88) 98 Room Air I & O 02/27/22 02/27/22 02/28/22 14:59 22:59 06:59 Intake Total 720 ml 440 ml Balance 720 ml 440 ml Current Medications: Meds: Current Medications Medications (Trade) Dose Ordered Sig/Valentino Route PRN Reason Start Time Stop Time Status Last Admin Dose Admin Acetaminophen (Tylenol) 650 mg PRN Q4HRS PRN PO MILD PAIN / TEMP > 100.3'F 02/24/22 13:30 Hydralazine HCl (Apresoline) 25 mg PRN QID PRN PO HYPERTENSION 02/24/22 13:30 Lorazepam (Ativan) 0.5 mg PRN Q6HRS PRN PO ANXIETY 02/24/22 13:30 02/27/22 22:10 Ondansetron HCl (Zofran Odt) 4 mg PRN Q4HRS PRN PO NAUSEA/VOMITING 02/24/22 13:30 Polyethylene Glycol (miraLAX) 17 gm PRN DAILY PRN PO 1ST CHOICE CONSTIPATION 02/24/22 13:30 Quetiapine Fumarate (SEROquel) 50 mg QHS PO 02/24/22 21:00 02/28/22 20:47 Quetiapine Fumarate (SEROquel) 100 mg DAILY PO 02/25/22 09:00 02/28/22 08:45 Sertraline HCl (Zoloft) 50 mg DAILY PO 02/25/22 09:00 02/25/22 17:01 DC 02/25/22 07:45 Temazepam (Restoril) 15 mg QHS PO 02/24/22 21:00 02/28/22 20:47 Atorvastatin Calcium (Lipitor) 80 mg DAILY PO 02/25/22 09:00 02/25/22 11:05 DC Glucosamine/ Chondroitin (Glucosamine-Chondroitin 500/400mg) 1 cap DAILY PO 02/25/22 09:00 02/28/22 08:47 Metoprolol Succinate (Toprol Xl) 100 mg DAILY PO 02/25/22 09:00 02/28/22 08:45 Multivitamins/ Calcium (Thera-M Plus) 1 tab DAILY PO 02/25/22 09:00 02/28/22 08:45 Acetaminophen (Tylenol) 650 mg PRN Q6HRS PRN PO MILD PAIN / TEMP > 100.3'F 02/24/22 13:45 Cancel Multi-Ingredient Ointment (Analgesic [place]) 1 marifer PRN QID PRN TP MUSCLE PAIN 02/24/22 13:45 Al Hydroxide/Mg Hydroxide (Mylanta Plus Xs) 15 ml PRN AFTMEALHC PRN PO DYSPEPSIA 02/24/22 13:45 Magnesium Hydroxide (Milk Of Magnesia) 2,400 mg PRN QHS PRN PO 2ND CHOICE CONSTIPATION 02/24/22 13:45 Atorvastatin Calcium (Lipitor) 80 mg HS PO 02/25/22 21:00 02/28/22 20:47 Sertraline HCl (Zoloft) 75 mg DAILY PO 02/26/22 09:00 02/28/22 08:47 Divalproex Sodium (Depakote Sprinkles) 125 mg 0900,1700 PO 02/27/22 09:00 02/28/22 17:42 Mirtazapine (Remeron) 7.5 mg QHS PO 02/27/22 21:00 02/28/22 20:47 I have reviewed the current psychotropics carefully including drug interactions. Risk benefit ratio favors no change other than as noted in my dictated progress note. Diagnosis: Problems: (1) Impulse control disorder, unspecified (2) Anxiety disorder, unspecified (3) Dementia, vascular, with depression (4) Dementia, vascular, with delusions (5) Dementia in Alzheimer's disease with depression (6) Dementia in Alzheimer's disease with delusions (7) Dementia of the Alzheimer's type with early onset with behavioral disturba nce (8) Major neurocognitive disorder NOAH SEE MD Feb 28, 2022 21:46
[2022-03-01 05:23] VITALS: BP 134/87
[2022-03-01] MEDS: GLUCOSAMINE/CHOND 500/400MG CAPSULE PO SCH (08:22)
[2022-03-01] MEDS: METOPROLOL SUCC 24HR ER 50 MG TAB.ER.24H. PO SCH (08:23)
[2022-03-01] MEDS: QUEtiapine 100 MG TABLET. PO SCH (08:23)
[2022-03-01] MEDS: DIVALPROEX 125 MG CAP.SPRINK PO SCH ×2 (08:23→17:00)
[2022-03-01] MEDS: SERTRALINE 50 MG TABLET. PO SCH (08:23)
--- NOTE | 2022-03-01 08:23 | PDOC ---
Exam Note: Jimmy Note: This note is a late entry for 02/28/2022 covers elements not covered in my initial note. Subjective: The patient was seen individually on 02/28/2022, discussed and reviewed the chart with Marcie MILLAN. The patient slept 5-1/2 hours previous night. He has been walking up and down the hallway, just oriented to his name, nothing else, not aggressive. Review of Systems: No CV, , pulmonary, eye, ENT system symptoms on review. Mental Status Exam: Patient is oriented to himself. I met with him in his room. He is anxious, restless but was able to stand fairly long time and interact with me though totally confused. Insight and judgment, recent and remote memory, attention and concentration, fund of knowledge is poor consistent with his diagnoses. Laboratory Data: Reviewed. Impression: Major neurocognitive disorder, Alzheimer, vascular with delusion, depression, behavioral disturbance. Anxiety disorder unspecified. Impulse control disorder unspecified. Plan: Maintain current psychotropics unchanged. Reviewed drug interactions, risk-benefit ratio. Adjust as clinically indicated. Depakote will be adjusted post labs level on 03/02. Assessment: Vital Signs/I&O: Vital Signs Date Time Temp Pulse Resp B/P (MAP) Pulse Ox O2 Delivery O2 Flow Rate FiO2 03/01/22 05:23 98.2 73 18 134/87 (103) 98 02/28/22 15:26 Room Air I & O 02/28/22 02/28/22 03/01/22 15:00 23:00 07:00 Intake Total 240 ml 480 ml Balance 240 ml 480 ml Current Medications: I have reviewed the current psychotropics carefully including drug interactions. Risk benefit ratio favors no change other than as noted in my dictated progress note. Diagnosis: Problems: (1) Impulse control disorder, unspecified (2) Anxiety disorder, unspecified (3) Dementia, vascular, with depression (4) Dementia, vascular, with delusions (5) Dementia in Alzheimer's disease with depression (6) Dementia in Alzheimer's disease with delusions (7) Dementia of the Alzheimer's type with early onset with behavioral disturbance (8) Major neurocognitive disorder NOAH SEE MD Mar 01, 2022 08:23
[2022-03-01] MEDS: MULTIVITAMIN with MINERAL TABLET. PO SCH (08:24)
[2022-03-01 15:59] VITALS: BP 141/84
[2022-03-01] MEDS: MIRTAZAPINE 7.5 MG TABLET. PO SCH (20:36)
[2022-03-01] MEDS: QUEtiapine 50 MG TABLET. PO SCH (20:36)
[2022-03-01] MEDS: TEMAZEPAM 15 MG CAPSULE PO SCH (20:36)
[2022-03-01] MEDS: ATORVASTATIN CALCIUM 20 MG TABLET PO SCH (20:37)
--- NOTE | 2022-03-01 22:04 | PDOC ---
Exam Note: Jimmy Note: Please also refer to the separate dictated note~for this date of service dictated separately.~Patient seen individually. Discussed the patient with Nursing staff reviewed the chart.~Reviewed interim history and current functioning. Reviewed vital signs,~Labs/ Radiology~and current medications noted below. Continue current treatment with the changes noted in the dictated addendum note Assessment: Vital Signs/I&O: Vital Signs Date Time Temp Pulse Resp B/P (MAP) Pulse Ox O2 Delivery O2 Flow Rate FiO2 03/01/22 15:59 97.3 75 18 141/84 (103) 98 02/28/22 15:26 Room Air I & O 02/28/22 02/28/22 03/01/22 14:59 22:59 06:59 Intake Total 240 ml 480 ml Balance 240 ml 480 ml Current Medications: Meds: Current Medications Medications (Trade) Dose Ordered Sig/Valentino Route PRN Reason Start Time Stop Time Status Last Admin Dose Admin Acetaminophen (Tylenol) 650 mg PRN Q4HRS PRN PO MILD PAIN / TEMP > 100.3'F 02/24/22 13:30 Hydralazine HCl (Apresoline) 25 mg PRN QID PRN PO HYPERTENSION 02/24/22 13:30 Lorazepam (Ativan) 0.5 mg PRN Q6HRS PRN PO ANXIETY 02/24/22 13:30 02/27/22 22:10 Ondansetron HCl (Zofran Odt) 4 mg PRN Q4HRS PRN PO NAUSEA/VOMITING 02/24/22 13:30 Polyethylene Glycol (miraLAX) 17 gm PRN DAILY PRN PO 1ST CHOICE CONSTIPATION 02/24/22 13:30 Quetiapine Fumarate (SEROquel) 50 mg QHS PO 02/24/22 21:00 03/01/22 20:36 Quetiapine Fumarate (SEROquel) 100 mg DAILY PO 02/25/22 09:00 03/01/22 08:23 Sertraline HCl (Zoloft) 50 mg DAILY PO 02/25/22 09:00 02/25/22 17:01 DC 02/25/22 07:45 Temazepam (Restoril) 15 mg QHS PO 02/24/22 21:00 03/01/22 20:36 Atorvastatin Calcium (Lipitor) 80 mg DAILY PO 02/25/22 09:00 02/25/22 11:05 DC Glucosamine/ Chondroitin (Glucosamine-Chondroitin 500/400mg) 1 cap DAILY PO 02/25/22 09:00 03/01/22 08:22 Metoprolol Succinate (Toprol Xl) 100 mg DAILY PO 02/25/22 09:00 03/01/22 08:23 Multivitamins/ Calcium (Thera-M Plus) 1 tab DAILY PO 02/25/22 09:00 03/01/22 08:24 Acetaminophen (Tylenol) 650 mg PRN Q6HRS PRN PO MILD PAIN / TEMP > 100.3'F 02/24/22 13:45 Cancel Multi-Ingredient Ointment (Analgesic [place]) 1 marifer PRN QID PRN TP MUSCLE PAIN 02/24/22 13:45 Al Hydroxide/Mg Hydroxide (Mylanta Plus Xs) 15 ml PRN AFTMEALHC PRN PO DYSPEPSIA 02/24/22 13:45 Magnesium Hydroxide (Milk Of Magnesia) 2,400 mg PRN QHS PRN PO 2ND CHOICE CONSTIPATION 02/24/22 13:45 Atorvastatin Calcium (Lipitor) 80 mg HS PO 02/25/22 21:00 03/01/22 20:37 Sertraline HCl (Zoloft) 75 mg DAILY PO 02/26/22 09:00 03/01/22 20:19 DC 03/01/22 08:23 Divalproex Sodium (Depakote Sprinkles) 125 mg 0900,1700 PO 02/27/22 09:00 03/01/22 17:00 Mirtazapine (Remeron) 7.5 mg QHS PO 02/27/22 21:00 03/01/22 20:36 Sertraline HCl (Zoloft) 100 mg DAILY PO 03/02/22 09:00 I have reviewed the current psychotropics carefully including drug interactions. Risk benefit ratio favors no change other than as noted in my dictated progress note. 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
[2022-03-02 06:42] VITALS: BP 106/65
[2022-03-02] MEDS: GLUCOSAMINE/CHOND 500/400MG CAPSULE PO SCH (08:03)
[2022-03-02] MEDS: MULTIVITAMIN with MINERAL TABLET. PO SCH (08:03)
[2022-03-02] MEDS: DIVALPROEX 125 MG CAP.SPRINK PO SCH ×2 (08:03→16:04)
[2022-03-02] MEDS: METOPROLOL SUCC 24HR ER 50 MG TAB.ER.24H. PO SCH (08:03)
[2022-03-02] MEDS: SERTRALINE 50 MG TABLET. PO SCH (08:04)
[2022-03-02] MEDS: QUEtiapine 100 MG TABLET. PO SCH (08:04)
--- NOTE | 2022-03-02 08:34 | PDOC ---
Exam Note: Jimmy Note: This note is a late entry for 03/01/2022 covers elements not covered in my initial note. Subjective: The patient was seen individually on 03/01/2022, discussed and reviewed the chart with Carmen HAMPTON. The patient slept 6 hours previous night. Overall he remains confused, wandering the hallway, not violent. Yesterday he threw his briefs in the toilet and had defecated all over but was cooperative with cleaning. He is often pointing towards the pacemaker in his chest. He is anxious, somewhat obsessive. Review of Systems: No CV, , pulmonary, eye, ENT system symptoms on review. Reliability poor. Mental Status Exam: Patient is oriented to himself. Insight and judgment, recent and remote memory, attention and concentration, fund of knowledge is poor consistent with his diagnoses. Laboratory Data: Reviewed. Impression: Major neurocognitive disorder, Alzheimer, vascular with delusion, depression, behavioral disturbance. Anxiety disorder unspecified. Impulse control disorder unspecified. Plan: Maintain current psychotropics unchanged. Reviewed drug interactions, risk-benefit ratio. Adjust as clinically indicated. Increase Zoloft from 75 mg a day to 100 mg a day after he has been on 75 mg for 3 days. Depakote has been added. Follow labs level. Assessment: Vital Signs/I&O: Vital Signs Date Time Temp Pulse Resp B/P (MAP) Pulse Ox O2 Delivery O2 Flow Rate FiO2 03/02/22 08:03 59 106/65 03/02/22 06:42 98.0 16 98 Room Air I & O 03/01/22 03/01/22 03/02/22 15:00 23:00 07:00 Intake Total 440 ml 480 ml Balance 440 ml 480 ml Current Medications: Meds: Current Medications Medications (Trade) Dose Ordered Sig/Valentino Route PRN Reason Start Time Stop Time Status Last Admin Dose Admin Sertraline HCl (Zoloft) 100 mg DAILY PO 03/02/22 09:00 03/02/22 08:04 I have reviewed the current psychotropics carefully including drug interactions. Risk benefit ratio favors no change other than as noted in my dictated progress note. Diagnosis: Problems: (1) Impulse control disorder, unspecified (2) Anxiety disorder, unspecified (3) Dementia, vascular, with depression (4) Dementia, vascular, with delusions (5) Dementia in Alzheimer's disease with depression (6) Dementia in Alzheimer's disease with delusions (7) Dementia of the Alzheimer's type with early onset with behavioral disturbance (8) Major neurocognitive disorder NOAH SEE MD Mar 02, 2022 08:34
[2022-03-02 08:43] LABS: BASO % 1 % (0-3); EOS # 0.1 x10^3/uL (0.0-0.7); EOS % 3 % (0-3); HEMATOCRIT 33.9 % (39.0-53.0); HEMOGLOBIN 11.2 g/dL (13.0-17.5); LYMPH # 1.7 x10^3/uL (1.0-4.8); LYMPH % 33 % (24-48); MEAN CORPUSCULAR HEMOGLOBIN 32 pg (25-35); MEAN CORPUSCULAR HGB CONC 33 g/dL (31-37); MEAN CORPUSCULAR VOLUME 97 fL (79-100); MONO # 0.5 x10^3/uL (0.0-1.1); MONO % 9 % (0-9); NEUT # 2.8 x10^3uL (1.8-7.7); NEUT % 55 % (31-73); PLATELET COUNT 148 x10^3/uL (140-400); RED CELL DISTRIBUTION WIDTH 13.6 % (11.5-14.5); WHITE BLOOD COUNT 5.1 x10^3/uL (4.0-11.0)
[2022-03-02 08:53] LABS: ALK PHOS 82 U/L (46-116); ALT (SGPT) 16 U/L (16-63); ANION GAP 4 (6-14); AST (SGOT) 12 U/L (15-37); BLOOD UREA NITROGEN 30 mg/dL (8-26); BUN/CREATININE RATIO 21 (6-20); CALCIUM 8.2 mg/dL (8.5-10.1); CARBON DIOXIDE 29 mmol/L (21-32); CHLORIDE 110 mmol/L (98-107); CREATININE 1.4 mg/dL (0.7-1.3); GFR 48.6; GLUCOSE 87 mg/dL (70-99); POTASSIUM 4.1 mmol/L (3.5-5.1); SODIUM 143 mmol/L (136-145); TOTAL BILIRUBIN 0.4 mg/dL (0.2-1.0); TOTAL PROTEIN 6.1 g/dL (6.4-8.2)
[2022-03-02 08:59] LABS: VAL ACID 15 mcg/mL (50-100)
[2022-03-02 15:56] VITALS: BP 114/66
[2022-03-02] MEDS: ATORVASTATIN CALCIUM 20 MG TABLET PO SCH (21:37)
[2022-03-02] MEDS: TEMAZEPAM 15 MG CAPSULE PO SCH (21:37)
[2022-03-02] MEDS: MIRTAZAPINE 7.5 MG TABLET. PO SCH (21:37)
--- NOTE | 2022-03-02 21:59 | PDOC ---
Exam Note: Jimmy Note: Please also refer to the separate dictated note~for this date of service dictated separately.~Patient seen individually. Discussed the patient with Nursing staff reviewed the chart.~Reviewed interim history and current functioning. Reviewed vital signs,~Labs/ Radiology~and current medications noted below. Continue current treatment with the changes noted in the dictated addendum note Assessment: Vital Signs/I&O: Vital Signs Date Time Temp Pulse Resp B/P (MAP) Pulse Ox O2 Delivery O2 Flow Rate FiO2 03/02/22 15:56 97.9 65 20 114/66 (82) 97 03/02/22 06:42 Room Air I & O 03/01/22 03/01/22 03/02/22 15:00 23:00 07:00 Intake Total 440 ml 480 ml Balance 440 ml 480 ml Labs: Laboratory Tests Test 03/02/22 07:55 03/02/22 08:05 03/02/22 16:15 White Blood Count 5.1 x10^3/uL (4.0-11.0) Red Blood Count 3.50 x10^6/uL (4.30-5.70) L Hemoglobin 11.2 g/dL (13.0-17.5) L Hematocrit 33.9 % (39.0-53.0) L Mean Corpuscular Volume 97 fL (79-100) Mean Corpuscular Hemoglobin 32 pg (25-35) Mean Corpuscular Hemoglobin Concent 33 g/dL (31-37) Red Cell Distribution Width 13.6 % (11.5-14.5) Platelet Count 148 x10^3/uL (140-400) Neutrophils (%) (Auto) 55 % (31-73) Lymphocytes (%) (Auto) 33 % (24-48) Monocytes (%) (Auto) 9 % (0-9) Eosinophils (%) (Auto) 3 % (0-3) Basophils (%) (Auto) 1 % (0-3) Neutrophils # (Auto) 2.8 x10^3uL (1.8-7.7) Lymphocytes # (Auto) 1.7 x10^3/uL (1.0-4.8) Monocytes # (Auto) 0.5 x10^3/uL (0.0-1.1) Eosinophils # (Auto) 0.1 x10^3/uL (0.0-0.7) Basophils # (Auto) 0.0 x10^3/uL (0.0-0.2) Sodium Level 143 mmol/L (136-145) Potassium Level 4.1 mmol/L (3.5-5.1) Chloride Level 110 mmol/L (98-107) H Carbon Dioxide Level 29 mmol/L (21-32) Anion Gap 4 (6-14) L Blood Urea Nitrogen 30 mg/dL (8-26) H Creatinine 1.4 mg/dL (0.7-1.3) H Estimated GFR (Cockcroft-Gault) 48.6 BUN/Creatinine Ratio 21 (6-20) H Glucose Level 87 mg/dL (70-99) Calcium Level 8.2 mg/dL (8.5-10.1) L Total Bilirubin 0.4 mg/dL (0.2-1.0) Aspartate Amino Transferase (AST) 12 U/L (15-37) L Alanine Aminotransferase (ALT) 16 U/L (16-63) Alkaline Phosphatase 82 U/L (46-116) Ammonia < 10 mcmol/L (11-34) L Total Protein 6.1 g/dL (6.4-8.2) L Albumin 3.0 g/dL (3.4-5.0) L Albumin/Globulin Ratio 1.0 (1.0-1.7) Valproic Acid Level 15 mcg/mL (50-100) L Valproic Acid Last Dose Date 03/01/22 Valproic Acid Last Dose Time 1700 POC SARS CoV-2 Antigen Negative (NEGATIVE) Current Medications: Meds: Laboratory Tests Test 03/02/22 07:55 03/02/22 08:05 03/02/22 16:15 White Blood Count 5.1 x10^3/uL Red Blood Count 3.50 x10^6/uL Hemoglobin 11.2 g/dL Hematocrit 33.9 % Mean Corpuscular Volume 97 fL Mean Corpuscular Hemoglobin 32 pg Mean Corpuscular Hemoglobin Concent 33 g/dL Red Cell Distribution Width 13.6 % Platelet Count 148 x10^3/uL Neutrophils (%) (Auto) 55 % Lymphocytes (%) (Auto) 33 % Monocytes (%) (Auto) 9 % Eosinophils (%) (Auto) 3 % Basophils (%) (Auto) 1 % Neutrophils # (Auto) 2.8 x10^3uL Lymphocytes # (Auto) 1.7 x10^3/uL Monocytes # (Auto) 0.5 x10^3/uL Eosinophils # (Auto) 0.1 x10^3/uL Basophils # (Auto) 0.0 x10^3/uL Sodium Level 143 mmol/L Potassium Level 4.1 mmol/L Chloride Level 110 mmol/L Carbon Dioxide Level 29 mmol/L Anion Gap 4 Blood Urea Nitrogen 30 mg/dL Creatinine 1.4 mg/dL Estimated GFR (Cockcroft-Gault) 48.6 BUN/Creatinine Ratio 21 Glucose Level 87 mg/dL Calcium Level 8.2 mg/dL Total Bilirubin 0.4 mg/dL Aspartate Amino Transf (AST/SGOT) 12 U/L Alanine Aminotransferase (ALT/SGPT) 16 U/L Alkaline Phosphatase 82 U/L Ammonia < 10 mcmol/L Total Protein 6.1 g/dL Albumin 3.0 g/dL Albumin/Globulin Ratio 1.0 Valproic Acid (Depakene) Level 15 mcg/mL Valproic Acid Last Dose Date 03/01/22 Valproic Acid Last Dose Time 1700 POC SARS CoV-2 Antigen Negative Current Medications Medications (Trade) Dose Ordered Sig/Valentino Route PRN Reason Start Time Stop Time Status Last Admin Dose Admin Acetaminophen (Tylenol) 650 mg PRN Q4HRS PRN PO MILD PAIN / TEMP > 100.3'F 02/24/22 13:30 Hydralazine HCl (Apresoline) 25 mg PRN QID PRN PO HYPERTENSION 02/24/22 13:30 Lorazepam (Ativan) 0.5 mg PRN Q6HRS PRN PO ANXIETY 02/24/22 13:30 02/27/22 22:10 Ondansetron HCl (Zofran Odt) 4 mg PRN Q4HRS PRN PO NAUSEA/VOMITING 02/24/22 13:30 Polyethylene Glycol (miraLAX) 17 gm PRN DAILY PRN PO 1ST CHOICE CONSTIPATION 02/24/22 13:30 Quetiapine Fumarate (SEROquel) 50 mg QHS PO 02/24/22 21:00 03/01/22 20:36 Quetiapine Fumarate (SEROquel) 100 mg DAILY PO 02/25/22 09:00 03/02/22 08:04 Sertraline HCl (Zoloft) 50 mg DAILY PO 02/25/22 09:00 02/25/22 17:01 DC 02/25/22 07:45 Temazepam (Restoril) 15 mg QHS PO 02/24/22 21:00 03/02/22 21:37 Atorvastatin Calcium (Lipitor) 80 mg DAILY PO 02/25/22 09:00 02/25/22 11:05 DC Glucosamine/ Chondroitin (Glucosamine-Chondroitin 500/400mg) 1 cap DAILY PO 02/25/22 09:00 03/02/22 08:03 Metoprolol Succinate (Toprol Xl) 100 mg DAILY PO 02/25/22 09:00 03/02/22 08:03 Multivitamins/ Calcium (Thera-M Plus) 1 tab DAILY PO 02/25/22 09:00 03/02/22 08:03 Acetaminophen (Tylenol) 650 mg PRN Q6HRS PRN PO MILD PAIN / TEMP > 100.3'F 02/24/22 13:45 Cancel Multi-Ingredient Ointment (Analgesic [place]) 1 marifer PRN QID PRN TP MUSCLE PAIN 02/24/22 13:45 Al Hydroxide/Mg Hydroxide (Mylanta Plus Xs) 15 ml PRN AFTMEALHC PRN PO DYSPEPSIA 02/24/22 13:45 Magnesium Hydroxide (Milk Of Magnesia) 2,400 mg PRN QHS PRN PO 2ND CHOICE CONSTIPATION 02/24/22 13:45 Atorvastatin Calcium (Lipitor) 80 mg HS PO 02/25/22 21:00 03/02/22 21:37 Sertraline HCl (Zoloft) 75 mg DAILY PO 02/26/22 09:00 03/01/22 20:19 DC 03/01/22 08:23 Divalproex Sodium (Depakote Sprinkles) 125 mg 0900,1700 PO 02/27/22 09:00 03/02/22 20:38 DC 03/02/22 16:04 Mirtazapine (Remeron) 7.5 mg QHS PO 02/27/22 21:00 03/02/22 21:37 Sertraline HCl (Zoloft) 100 mg DAILY PO 03/02/22 09:00 03/02/22 08:04 Divalproex Sodium (Depakote Sprinkles) 250 mg DAILY PO 03/03/22 09:00 UNV Divalproex Sodium (Depakote Sprinkles) 250 mg 0900 PO 03/03/22 09:00 Divalproex Sodium (Depakote Sprinkles) 125 mg 1700 PO 03/03/22 17:00 Current Medications Medications (Trade) Dose Ordered Sig/Valentino Route PRN Reason Start Time Stop Time Status Last Admin Dose Admin Sertraline HCl (Zoloft) 100 mg DAILY PO 03/02/22 09:00 03/02/22 08:04 I have reviewed the current psychotropics carefully including drug interactions. Risk benefit ratio favors no change other than as noted in my dictated progress note. 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
[2022-03-02] MEDS: QUEtiapine 50 MG TABLET. PO SCH (23:10)
[2022-03-03 06:36] VITALS: BP 130/84
[2022-03-03] MEDS: METOPROLOL SUCC 24HR ER 50 MG TAB.ER.24H. PO SCH (08:43)
[2022-03-03] MEDS: MULTIVITAMIN with MINERAL TABLET. PO SCH (08:43)
[2022-03-03] MEDS: DIVALPROEX 125 MG CAP.SPRINK PO SCH ×2 (08:43→17:19)
[2022-03-03] MEDS: QUEtiapine 100 MG TABLET. PO SCH (08:43)
[2022-03-03] MEDS: GLUCOSAMINE/CHOND 500/400MG CAPSULE PO SCH (08:44)
[2022-03-03] MEDS: SERTRALINE 50 MG TABLET. PO SCH (08:44)
[2022-03-03] MEDS ORDERED: DIVALPROEX 125 MG CAP.SPRINK PO SCH (09:00)
--- NOTE | 2022-03-03 09:39 | PDOC ---
Exam Note: Jimmy Note: This note is a late entry for 03/02/2022 covers elements not covered in my initial note. Subjective: The patient was seen individually on 03/02/2022, discussed and reviewed the chart with Rachael HAMPTON. The patient slept 5-3/4 hours previous night. His valproic acid level is subtherapeutic at 15. Ammonia unremarkable. He continues to wander the hallways. He does redirect. Review of Systems: No CV, , pulmonary, eye, ENT system symptoms on review. Reliability poor. Mental Status Exam: Patient is oriented to himself. I met with him in his room outside the hallway. It was bedtime but he seemed quite oblivious of this. Insight and judgment, recent and remote memory, attention and concentration, fund of knowledge is poor consistent with his diagnoses. Laboratory Data: Reviewed. Impression: Major neurocognitive disorder, Alzheimer, vascular with delusion, depression, behavioral disturbance. Anxiety disorder unspecified. Impulse control disorder unspecified. Plan: Maintain current psychotropics unchanged. Reviewed drug interactions, risk-benefit ratio. Adjust as clinically indicated. Assessment: Vital Signs/I&O: Vital Signs Date Time Temp Pulse Resp B/P (MAP) Pulse Ox O2 Delivery O2 Flow Rate FiO2 03/03/22 08:43 70 130/84 03/03/22 06:36 97.2 18 98 03/02/22 06:42 Room Air I & O 03/02/22 03/02/22 03/03/22 15:00 23:00 07:00 Intake Total 0 ml 560 ml Balance 0 ml 560 ml Labs: Laboratory Tests Test 03/02/22 16:15 POC SARS CoV-2 Antigen Negative (NEGATIVE) Current Medications: Meds: Current Medications Medications (Trade) Dose Ordered Sig/Valentino Route PRN Reason Start Time Stop Time Status Last Admin Dose Admin Divalproex Sodium (Depakote Sprinkles) 250 mg 0900 PO 03/03/22 09:00 03/03/22 08:43 I have reviewed the current psychotropics carefully including drug interactions. Risk benefit ratio favors no change other than as noted in my dictated progress note. Diagnosis: Problems: (1) Impulse control disorder, unspecified (2) Anxiety disorder, unspecified (3) Dementia, vascular, with depression (4) Dementia, vascular, with delusions (5) Dementia in Alzheimer's disease with depression (6) Dementia in Alzheimer's disease with delusions (7) Dementia of the Alzheimer's type with early onset with behavioral disturbance (8) Major neurocognitive disorder NOAH SEE MD Mar 03, 2022 09:39
[2022-03-03] MEDS: ACETAMINOPHEN 325 MG TABLET PO PRN (12:44)
[2022-03-03 15:59] VITALS: BP 115/70
[2022-03-03] MEDS: MIRTAZAPINE 7.5 MG TABLET. PO SCH (20:17)
[2022-03-03] MEDS: TEMAZEPAM 15 MG CAPSULE PO SCH (20:17)
[2022-03-03] MEDS: QUEtiapine 50 MG TABLET. PO SCH (20:17)
[2022-03-03] MEDS: ATORVASTATIN CALCIUM 20 MG TABLET PO SCH (20:17)
--- NOTE | 2022-03-03 21:24 | PDOC ---
Exam Note: Jimmy Note: Please also refer to the separate dictated note~for this date of service dictated separately.~Patient seen individually. Discussed the patient with Nursing staff reviewed the chart.~Reviewed interim history and current functioning. Reviewed vital signs,~Labs/ Radiology~and current medications noted below. Continue current treatment with the changes noted in the dictated addendum note Assessment: Vital Signs/I&O: Vital Signs Date Time Temp Pulse Resp B/P (MAP) Pulse Ox O2 Delivery O2 Flow Rate FiO2 03/03/22 15:59 97.6 88 16 115/70 (85) 99 03/02/22 06:42 Room Air I & O 03/02/22 03/02/22 03/03/22 15:00 23:00 07:00 Intake Total 0 ml 560 ml Balance 0 ml 560 ml Labs: Laboratory Tests Test 03/03/22 11:00 POC SARS CoV-2 Antigen Negative (NEGATIVE) Current Medications: Meds: Laboratory Tests Test 03/03/22 11:00 POC SARS CoV-2 Antigen Negative Current Medications Medications (Trade) Dose Ordered Sig/Valentino Route PRN Reason Start Time Stop Time Status Last Admin Dose Admin Acetaminophen (Tylenol) 650 mg PRN Q4HRS PRN PO MILD PAIN / TEMP > 100.3'F 02/24/22 13:30 03/03/22 12:44 Hydralazine HCl (Apresoline) 25 mg PRN QID PRN PO HYPERTENSION 02/24/22 13:30 Lorazepam (Ativan) 0.5 mg PRN Q6HRS PRN PO ANXIETY 02/24/22 13:30 02/27/22 22:10 Ondansetron HCl (Zofran Odt) 4 mg PRN Q4HRS PRN PO NAUSEA/VOMITING 02/24/22 13:30 Polyethylene Glycol (miraLAX) 17 gm PRN DAILY PRN PO 1ST CHOICE CONSTIPATION 02/24/22 13:30 Quetiapine Fumarate (SEROquel) 50 mg QHS PO 02/24/22 21:00 03/03/22 20:17 Quetiapine Fumarate (SEROquel) 100 mg DAILY PO 02/25/22 09:00 03/03/22 08:43 Sertraline HCl (Zoloft) 50 mg DAILY PO 02/25/22 09:00 02/25/22 17:01 DC 02/25/22 07:45 Temazepam (Restoril) 15 mg QHS PO 02/24/22 21:00 03/03/22 20:17 Atorvastatin Calcium (Lipitor) 80 mg DAILY PO 02/25/22 09:00 02/25/22 11:05 DC Glucosamine/ Chondroitin (Glucosamine-Chondroitin 500/400mg) 1 cap DAILY PO 02/25/22 09:00 03/03/22 08:44 Metoprolol Succinate (Toprol Xl) 100 mg DAILY PO 02/25/22 09:00 03/03/22 08:43 Multivitamins/ Calcium (Thera-M Plus) 1 tab DAILY PO 02/25/22 09:00 03/03/22 08:43 Acetaminophen (Tylenol) 650 mg PRN Q6HRS PRN PO MILD PAIN / TEMP > 100.3'F 02/24/22 13:45 Cancel Multi-Ingredient Ointment (Analgesic [place]) 1 marifer PRN QID PRN TP MUSCLE PAIN 02/24/22 13:45 Al Hydroxide/Mg Hydroxide (Mylanta Plus Xs) 15 ml PRN AFTMEALHC PRN PO DYSPEPSIA 02/24/22 13:45 Magnesium Hydroxide (Milk Of Magnesia) 2,400 mg PRN QHS PRN PO 2ND CHOICE CONSTIPATION 02/24/22 13:45 Atorvastatin Calcium (Lipitor) 80 mg HS PO 02/25/22 21:00 03/03/22 20:17 Sertraline HCl (Zoloft) 75 mg DAILY PO 02/26/22 09:00 03/01/22 20:19 DC 03/01/22 08:23 Divalproex Sodium (Depakote Sprinkles) 125 mg 0900,1700 PO 02/27/22 09:00 03/02/22 20:38 DC 03/02/22 16:04 Mirtazapine (Remeron) 7.5 mg QHS PO 02/27/22 21:00 03/03/22 20:17 Sertraline HCl (Zoloft) 100 mg DAILY PO 03/02/22 09:00 03/03/22 08:44 Divalproex Sodium (Depakote Sprinkles) 250 mg DAILY PO 03/03/22 09:00 UNV Divalproex Sodium (Depakote Sprinkles) 250 mg 0900 PO 03/03/22 09:00 03/03/22 08:43 Divalproex Sodium (Depakote Sprinkles) 125 mg 1700 PO 03/03/22 17:00 03/03/22 17:19 Current Medications Medications (Trade) Dose Ordered Sig/Valentino Route PRN Reason Start Time Stop Time Status Last Admin Dose Admin Divalproex Sodium (Depakote Sprinkles) 250 mg 0900 PO 03/03/22 09:00 03/03/22 08:43 Divalproex Sodium (Depakote Sprinkles) 125 mg 1700 PO 03/03/22 17:00 03/03/22 17:19 I have reviewed the current psychotropics carefully including drug interactions. Risk benefit ratio favors no change other than as noted in my dictated progress note. 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
--- NOTE | 2022-03-03 22:55 | PDOC ---
Exam Note: Jimmy Note: This note is for 03/03/2022 covers elements not covered in my initial note. Subjective: The patient was seen individually on 03/03/2022, discussed and reviewed the chart with Mikey HAMPTON. The patient slept 4 hours previous night. He has been confused, calm, pleasant. He attends groups. Review of Systems: No CV, , pulmonary, eye, ENT system symptoms on review. Reliability poor. Mental Status Exam: Patient is oriented to himself. Insight and judgment, recent and remote memory, attention and concentration, fund of knowledge is poor consistent with his diagnoses. Laboratory Data: Reviewed. Impression: Major neurocognitive disorder, Alzheimer, vascular with delusion, depression, behavioral disturbance. Anxiety disorder unspecified. Impulse control disorder unspecified. Plan: Maintain current psychotropics unchanged. Reviewed drug interactions, risk-benefit ratio. Adjust as clinically indicated. Assessment: Vital Signs/I&O: Vital Signs Date Time Temp Pulse Resp B/P (MAP) Pulse Ox O2 Delivery O2 Flow Rate FiO2 03/03/22 15:59 97.6 88 16 115/70 (85) 99 03/02/22 06:42 Room Air I & O 03/02/22 03/02/22 03/03/22 15:00 23:00 07:00 Intake Total 0 ml 560 ml Balance 0 ml 560 ml Labs: Laboratory Tests Test 03/03/22 11:00 POC SARS CoV-2 Antigen Negative (NEGATIVE) Current Medications: Meds: Current Medications Medications (Trade) Dose Ordered Sig/Valentino Route PRN Reason Start Time Stop Time Status Last Admin Dose Admin Divalproex Sodium (Depakote Sprinkles) 250 mg 0900 PO 03/03/22 09:00 03/03/22 08:43 Divalproex Sodium (Depakote Sprinkles) 125 mg 1700 PO 03/03/22 17:00 03/03/22 17:19 I have reviewed the current psychotropics carefully including drug interactions. Risk benefit ratio favors no change other than as noted in my dictated progress note. 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
[2022-03-04 06:04] VITALS: BP 117/79
[2022-03-04] MEDS: GLUCOSAMINE/CHOND 500/400MG CAPSULE PO SCH (08:32)
[2022-03-04] MEDS: QUEtiapine 100 MG TABLET. PO SCH (08:33)
[2022-03-04] MEDS: MULTIVITAMIN with MINERAL TABLET. PO SCH (08:33)
[2022-03-04] MEDS: DIVALPROEX 125 MG CAP.SPRINK PO SCH ×2 (08:33→16:44)
[2022-03-04] MEDS: SERTRALINE 50 MG TABLET. PO SCH (08:33)
[2022-03-04] MEDS: METOPROLOL SUCC 24HR ER 50 MG TAB.ER.24H. PO SCH (08:33)
[2022-03-04 16:09] VITALS: BP 111/55
[2022-03-04] MEDS: LORazepam 0.5 MG TABLET PO PRN (18:36)
[2022-03-04] MEDS: MIRTAZAPINE 7.5 MG TABLET. PO SCH (20:00)
[2022-03-04] MEDS: QUEtiapine 50 MG TABLET. PO SCH (20:01)
[2022-03-04] MEDS: ATORVASTATIN CALCIUM 20 MG TABLET PO SCH (20:01)
[2022-03-04] MEDS: TEMAZEPAM 15 MG CAPSULE PO SCH (20:02)
--- NOTE | 2022-03-04 21:44 | PDOC ---
Exam Note: Jimmy Note: Please also refer to the separate dictated note~for this date of service dictated separately.~Patient seen individually. Discussed the patient with Nursing staff reviewed the chart.~Reviewed interim history and current functioning. Reviewed vital signs,~Labs/ Radiology~and current medications noted below. Continue current treatment with the changes noted in the dictated addendum note Assessment: Vital Signs/I&O: Vital Signs Date Time Temp Pulse Resp B/P (MAP) Pulse Ox O2 Delivery O2 Flow Rate FiO2 03/04/22 16:09 97.2 61 18 111/55 (73) 96 03/02/22 06:42 Room Air I & O 03/03/22 03/03/22 03/04/22 15:00 23:00 07:00 Intake Total 340 ml 360 ml Balance 340 ml 360 ml Current Medications: Meds: Current Medications Medications (Trade) Dose Ordered Sig/Valentino Route PRN Reason Start Time Stop Time Status Last Admin Dose Admin Acetaminophen (Tylenol) 650 mg PRN Q4HRS PRN PO MILD PAIN / TEMP > 100.3'F 02/24/22 13:30 03/03/22 12:44 Hydralazine HCl (Apresoline) 25 mg PRN QID PRN PO HYPERTENSION 02/24/22 13:30 Lorazepam (Ativan) 0.5 mg PRN Q6HRS PRN PO ANXIETY 02/24/22 13:30 03/04/22 18:36 Ondansetron HCl (Zofran Odt) 4 mg PRN Q4HRS PRN PO NAUSEA/VOMITING 02/24/22 13:30 Polyethylene Glycol (miraLAX) 17 gm PRN DAILY PRN PO 1ST CHOICE CONSTIPATION 02/24/22 13:30 Quetiapine Fumarate (SEROquel) 50 mg QHS PO 02/24/22 21:00 03/04/22 20:01 Quetiapine Fumarate (SEROquel) 100 mg DAILY PO 02/25/22 09:00 03/04/22 08:33 Sertraline HCl (Zoloft) 50 mg DAILY PO 02/25/22 09:00 02/25/22 17:01 DC 02/25/22 07:45 Temazepam (Restoril) 15 mg QHS PO 02/24/22 21:00 03/04/22 20:02 Atorvastatin Calcium (Lipitor) 80 mg DAILY PO 02/25/22 09:00 02/25/22 11:05 DC Glucosamine/ Chondroitin (Glucosamine-Chondroitin 500/400mg) 1 cap DAILY PO 02/25/22 09:00 03/04/22 08:32 Metoprolol Succinate (Toprol Xl) 100 mg DAILY PO 02/25/22 09:00 03/04/22 08:33 Multivitamins/ Calcium (Thera-M Plus) 1 tab DAILY PO 02/25/22 09:00 03/04/22 08:33 Acetaminophen (Tylenol) 650 mg PRN Q6HRS PRN PO MILD PAIN / TEMP > 100.3'F 02/24/22 13:45 Cancel Multi-Ingredient Ointment (Analgesic [place]) 1 marifer PRN QID PRN TP MUSCLE PAIN 02/24/22 13:45 Al Hydroxide/Mg Hydroxide (Mylanta Plus Xs) 15 ml PRN AFTMEALHC PRN PO DYSPEPSIA 02/24/22 13:45 Magnesium Hydroxide (Milk Of Magnesia) 2,400 mg PRN QHS PRN PO 2ND CHOICE CONSTIPATION 02/24/22 13:45 Atorvastatin Calcium (Lipitor) 80 mg HS PO 02/25/22 21:00 03/04/22 20:01 Sertraline HCl (Zoloft) 75 mg DAILY PO 02/26/22 09:00 03/01/22 20:19 DC 03/01/22 08:23 Divalproex Sodium (Depakote Sprinkles) 125 mg 0900,1700 PO 02/27/22 09:00 03/02/22 20:38 DC 03/02/22 16:04 Mirtazapine (Remeron) 7.5 mg QHS PO 02/27/22 21:00 03/04/22 20:00 Sertraline HCl (Zoloft) 100 mg DAILY PO 03/02/22 09:00 03/04/22 08:33 Divalproex Sodium (Depakote Sprinkles) 250 mg DAILY PO 03/03/22 09:00 UNV Divalproex Sodium (Depakote Sprinkles) 250 mg 0900 PO 03/03/22 09:00 03/04/22 08:33 Divalproex Sodium (Depakote Sprinkles) 125 mg 1700 PO 03/03/22 17:00 03/04/22 16:44 I have reviewed the current psychotropics carefully including drug interactions. Risk benefit ratio favors no change other than as noted in my dictated progress note. 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
[2022-03-05 06:04] VITALS: BP 133/97
--- NOTE | 2022-03-05 06:14 | PDOC ---
Exam Note: Jimmy Note: This note is for 03/04/2022 covers elements not covered in my initial note. Subjective: The patient was seen individually on 03/04/2022, discussed and reviewed the chart with Samantha HAMPTON. The patient slept 6-1/2 hours previous night. He remains confused, wanders. He has not been aggressive or disruptive. Review of Systems: No CV, , pulmonary, eye, ENT system symptoms on review. Reliability poor. Mental Status Exam: Patient is oriented to himself. Insight and judgment, recent and remote memory, attention and concentration, fund of knowledge is poor consistent with his diagnoses. Laboratory Data: Reviewed. Impression: Major neurocognitive disorder, Alzheimer, vascular with delusion, depression, behavioral disturbance. Anxiety disorder unspecified. Impulse control disorder unspecified. Plan: Maintain current psychotropics unchanged. Reviewed drug interactions, risk-benefit ratio. Adjust as clinically indicated. Assessment: Vital Signs/I&O: Vital Signs Date Time Temp Pulse Resp B/P (MAP) Pulse Ox O2 Delivery O2 Flow Rate FiO2 03/05/22 06:04 98.0 65 16 133/97 (109) 96 03/02/22 06:42 Room Air I & O 03/04/22 03/04/22 03/05/22 15:00 23:00 07:00 Intake Total 480 ml 480 ml Balance 480 ml 480 ml Current Medications: I have reviewed the current psychotropics carefully including drug interactions. Risk benefit ratio favors no change other than as noted in my dictated progress note. 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
[2022-03-05] MEDS: GLUCOSAMINE/CHOND 500/400MG CAPSULE PO SCH (08:09)
[2022-03-05] MEDS: QUEtiapine 100 MG TABLET. PO SCH (08:10)
[2022-03-05] MEDS: MULTIVITAMIN with MINERAL TABLET. PO SCH (08:10)
[2022-03-05] MEDS: SERTRALINE 50 MG TABLET. PO SCH (08:10)
[2022-03-05] MEDS: METOPROLOL SUCC 24HR ER 50 MG TAB.ER.24H. PO SCH (08:10)
[2022-03-05] MEDS: DIVALPROEX 125 MG CAP.SPRINK PO SCH ×2 (08:10→17:11)
[2022-03-05 15:54] VITALS: BP 135/75
[2022-03-05] MEDS: MIRTAZAPINE 7.5 MG TABLET. PO SCH (19:52)
[2022-03-05] MEDS: QUEtiapine 50 MG TABLET. PO SCH (19:52)
[2022-03-05] MEDS: TEMAZEPAM 15 MG CAPSULE PO SCH (19:52)
[2022-03-05] MEDS: ATORVASTATIN CALCIUM 20 MG TABLET PO SCH (19:52)
--- NOTE | 2022-03-05 21:32 | PDOC ---
Exam Note: Jimmy Note: Please also refer to the separate dictated note~for this date of service dictated separately.~Patient seen individually. Discussed the patient with Nursing staff reviewed the chart.~Reviewed interim history and current functioning. Reviewed vital signs,~Labs/ Radiology~and current medications noted below. Continue current treatment with the changes noted in the dictated addendum note Assessment: Vital Signs/I&O: Vital Signs Date Time Temp Pulse Resp B/P (MAP) Pulse Ox O2 Delivery O2 Flow Rate FiO2 03/05/22 15:54 97.2 70 18 135/75 (95) 96 Room Air I & O 03/04/22 03/04/22 03/05/22 15:00 23:00 07:00 Intake Total 480 ml 480 ml Balance 480 ml 480 ml Current Medications: Meds: Current Medications Medications (Trade) Dose Ordered Sig/Valentino Route PRN Reason Start Time Stop Time Status Last Admin Dose Admin Acetaminophen (Tylenol) 650 mg PRN Q4HRS PRN PO MILD PAIN / TEMP > 100.3'F 02/24/22 13:30 03/03/22 12:44 Hydralazine HCl (Apresoline) 25 mg PRN QID PRN PO HYPERTENSION 02/24/22 13:30 Lorazepam (Ativan) 0.5 mg PRN Q6HRS PRN PO ANXIETY 02/24/22 13:30 03/04/22 18:36 Ondansetron HCl (Zofran Odt) 4 mg PRN Q4HRS PRN PO NAUSEA/VOMITING 02/24/22 13:30 Polyethylene Glycol (miraLAX) 17 gm PRN DAILY PRN PO 1ST CHOICE CONSTIPATION 02/24/22 13:30 Quetiapine Fumarate (SEROquel) 50 mg QHS PO 02/24/22 21:00 03/05/22 19:52 Quetiapine Fumarate (SEROquel) 100 mg DAILY PO 02/25/22 09:00 03/05/22 08:10 Sertraline HCl (Zoloft) 50 mg DAILY PO 02/25/22 09:00 02/25/22 17:01 DC 02/25/22 07:45 Temazepam (Restoril) 15 mg QHS PO 02/24/22 21:00 03/05/22 19:52 Atorvastatin Calcium (Lipitor) 80 mg DAILY PO 02/25/22 09:00 02/25/22 11:05 DC Glucosamine/ Chondroitin (Glucosamine-Chondroitin 500/400mg) 1 cap DAILY PO 02/25/22 09:00 03/05/22 08:09 Metoprolol Succinate (Toprol Xl) 100 mg DAILY PO 02/25/22 09:00 03/05/22 08:10 Multivitamins/ Calcium (Thera-M Plus) 1 tab DAILY PO 02/25/22 09:00 03/05/22 08:10 Acetaminophen (Tylenol) 650 mg PRN Q6HRS PRN PO MILD PAIN / TEMP > 100.3'F 02/24/22 13:45 Cancel Multi-Ingredient Ointment (Analgesic [place]) 1 marifer PRN QID PRN TP MUSCLE PAIN 02/24/22 13:45 Al Hydroxide/Mg Hydroxide (Mylanta Plus Xs) 15 ml PRN AFTMEALHC PRN PO DYSPEPSIA 02/24/22 13:45 Magnesium Hydroxide (Milk Of Magnesia) 2,400 mg PRN QHS PRN PO 2ND CHOICE CONSTIPATION 02/24/22 13:45 Atorvastatin Calcium (Lipitor) 80 mg HS PO 02/25/22 21:00 03/05/22 19:52 Sertraline HCl (Zoloft) 75 mg DAILY PO 02/26/22 09:00 03/01/22 20:19 DC 03/01/22 08:23 Divalproex Sodium (Depakote Sprinkles) 125 mg 0900,1700 PO 02/27/22 09:00 03/02/22 20:38 DC 03/02/22 16:04 Mirtazapine (Remeron) 7.5 mg QHS PO 02/27/22 21:00 03/05/22 19:52 Sertraline HCl (Zoloft) 100 mg DAILY PO 03/02/22 09:00 03/05/22 08:10 Divalproex Sodium (Depakote Sprinkles) 250 mg DAILY PO 03/03/22 09:00 UNV Divalproex Sodium (Depakote Sprinkles) 250 mg 0900 PO 03/03/22 09:00 03/05/22 08:10 Divalproex Sodium (Depakote Sprinkles) 125 mg 1700 PO 03/03/22 17:00 03/05/22 17:11 I have reviewed the current psychotropics carefully including drug interactions. Risk benefit ratio favors no change other than as noted in my dictated progress note. 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
[2022-03-06 06:18] LABS: BASO % 0 % (0-3); EOS # 0.2 x10^3/uL (0.0-0.7); EOS % 4 % (0-3); HEMOGLOBIN 11.2 g/dL (13.0-17.5); LYMPH # 1.6 x10^3/uL (1.0-4.8); LYMPH % 29 % (24-48); MEAN CORPUSCULAR HEMOGLOBIN 32 pg (25-35); MEAN CORPUSCULAR HGB CONC 33 g/dL (31-37); MEAN CORPUSCULAR VOLUME 98 fL (79-100); MONO # 0.5 x10^3/uL (0.0-1.1); MONO % 10 % (0-9); NEUT % 57 % (31-73); PLATELET COUNT 127 x10^3/uL (140-400); RED BLOOD COUNT 3.47 x10^6/uL (4.30-5.70); RED CELL DISTRIBUTION WIDTH 13.8 % (11.5-14.5); WHITE BLOOD COUNT 5.4 x10^3/uL (4.0-11.0)
[2022-03-06 06:32] VITALS: BP 163/76
[2022-03-06 06:32] LABS: ALK PHOS 85 U/L (46-116); ALT (SGPT) 30 U/L (16-63); ANION GAP 5 (6-14); AST (SGOT) 17 U/L (15-37); BLOOD UREA NITROGEN 28 mg/dL (8-26); BUN/CREATININE RATIO 19 (6-20); CALCIUM 8.2 mg/dL (8.5-10.1); CARBON DIOXIDE 29 mmol/L (21-32); CHLORIDE 111 mmol/L (98-107); CREATININE 1.5 mg/dL (0.7-1.3); GFR 44.9; GLUCOSE 87 mg/dL (70-99); POTASSIUM 4.2 mmol/L (3.5-5.1); SODIUM 145 mmol/L (136-145); TOTAL BILIRUBIN 0.4 mg/dL (0.2-1.0)
[2022-03-06 06:44] LABS: VAL ACID 23 mcg/mL (50-100)
[2022-03-06] MEDS: GLUCOSAMINE/CHOND 500/400MG CAPSULE PO SCH (07:42)
[2022-03-06] MEDS: QUEtiapine 100 MG TABLET. PO SCH (07:42)
[2022-03-06] MEDS: SERTRALINE 50 MG TABLET. PO SCH (07:42)
[2022-03-06] MEDS: MULTIVITAMIN with MINERAL TABLET. PO SCH (07:42)
[2022-03-06] MEDS: METOPROLOL SUCC 24HR ER 50 MG TAB.ER.24H. PO SCH (07:42)
[2022-03-06] MEDS: DIVALPROEX 125 MG CAP.SPRINK PO SCH ×2 (07:43→16:19)
--- NOTE | 2022-03-06 08:49 | PDOC ---
Exam Note: Jimmy Note: This note is for 03/05/2022 covers elements not covered in my initial note. Subjective: The patient was seen individually on 03/05/2022, discussed and reviewed the chart with Marcie MILLAN. The patient slept 6-3/4 hours previous night. I met with the patient in the dayroom. Overall she remains confused, wanders the hallways, redirectable, not aggressive. Review of Systems: No CV, , pulmonary, eye, ENT system symptoms on review. Reliability poor. Mental Status Exam: Patient is oriented to himself. Insight and judgment, recent and remote memory, attention and concentration, fund of knowledge is poor consistent with his diagnoses. Laboratory Data: Reviewed. Impression: Major neurocognitive disorder, Alzheimer, vascular with delusion, depression, behavioral disturbance. Anxiety disorder unspecified. Impulse control disorder unspecified. Plan: Continue current psychotropics unchanged. Reviewed drug interactions, risk-benefit ratio. Adjust as clinically indicated. Assessment: Vital Signs/I&O: Vital Signs Date Time Temp Pulse Resp B/P (MAP) Pulse Ox O2 Delivery O2 Flow Rate FiO2 03/06/22 07:42 67 163/76 03/06/22 06:32 98.2 20 98 Room Air I & O 03/05/22 03/05/22 03/06/22 15:00 23:00 07:00 Intake Total 480 ml 600 ml Balance 480 ml 600 ml Labs: Laboratory Tests Test 03/06/22 06:00 White Blood Count 5.4 x10^3/uL (4.0-11.0) Red Blood Count 3.47 x10^6/uL (4.30-5.70) L Hemoglobin 11.2 g/dL (13.0-17.5) L Hematocrit 34.0 % (39.0-53.0) L Mean Corpuscular Volume 98 fL (79-100) Mean Corpuscular Hemoglobin 32 pg (25-35) Mean Corpuscular Hemoglobin Concent 33 g/dL (31-37) Red Cell Distribution Width 13.8 % (11.5-14.5) Platelet Count 127 x10^3/uL (140-400) L Neutrophils (%) (Auto) 57 % (31-73) Lymphocytes (%) (Auto) 29 % (24-48) Monocytes (%) (Auto) 10 % (0-9) H Eosinophils (%) (Auto) 4 % (0-3) H Basophils (%) (Auto) 0 % (0-3) Neutrophils # (Auto) 3.0 x10^3uL (1.8-7.7) Lymphocytes # (Auto) 1.6 x10^3/uL (1.0-4.8) Monocytes # (Auto) 0.5 x10^3/uL (0.0-1.1) Eosinophils # (Auto) 0.2 x10^3/uL (0.0-0.7) Basophils # (Auto) 0.0 x10^3/uL (0.0-0.2) Sodium Level 145 mmol/L (136-145) Potassium Level 4.2 mmol/L (3.5-5.1) Chloride Level 111 mmol/L (98-107) H Carbon Dioxide Level 29 mmol/L (21-32) Anion Gap 5 (6-14) L Blood Urea Nitrogen 28 mg/dL (8-26) H Creatinine 1.5 mg/dL (0.7-1.3) H Estimated GFR (Cockcroft-Gault) 44.9 BUN/Creatinine Ratio 19 (6-20) Glucose Level 87 mg/dL (70-99) Calcium Level 8.2 mg/dL (8.5-10.1) L Total Bilirubin 0.4 mg/dL (0.2-1.0) Aspartate Amino Transferase (AST) 17 U/L (15-37) Alanine Aminotransferase (ALT) 30 U/L (16-63) Alkaline Phosphatase 85 U/L (46-116) Ammonia < 10 mcmol/L (11-34) L Total Protein 6.0 g/dL (6.4-8.2) L Albumin 3.0 g/dL (3.4-5.0) L Albumin/Globulin Ratio 1.0 (1.0-1.7) Valproic Acid Level 23 mcg/mL (50-100) L Valproic Acid Last Dose Date 03/05/22 Valproic Acid Last Dose Time 1700 Current Medications: I have reviewed the current psychotropics carefully including drug interactions. Risk benefit ratio favors no change other than as noted in my dictated progress note. 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
[2022-03-06] MEDS: ACETAMINOPHEN 325 MG TABLET PO PRN (13:31)
[2022-03-06 15:41] VITALS: BP 115/74
[2022-03-06] MEDS: MIRTAZAPINE 7.5 MG TABLET. PO SCH (20:31)
[2022-03-06] MEDS: QUEtiapine 50 MG TABLET. PO SCH (20:31)
[2022-03-06] MEDS: ATORVASTATIN CALCIUM 20 MG TABLET PO SCH (20:31)
[2022-03-06] MEDS: TEMAZEPAM 15 MG CAPSULE PO SCH (20:32)
--- NOTE | 2022-03-06 22:07 | PDOC ---
Exam Note: Jimmy Note: Please also refer to the separate dictated note~for this date of service dictated separately.~Patient seen individually. Discussed the patient with Nursing staff reviewed the chart.~Reviewed interim history and current functioning. Reviewed vital signs,~Labs/ Radiology~and current medications noted below. Continue current treatment with the changes noted in the dictated addendum note Assessment: Vital Signs/I&O: Vital Signs Date Time Temp Pulse Resp B/P (MAP) Pulse Ox O2 Delivery O2 Flow Rate FiO2 03/06/22 15:41 97.2 75 18 115/74 (88) 98 03/06/22 06:32 Room Air I & O 03/05/22 03/05/22 03/06/22 15:00 23:00 07:00 Intake Total 480 ml 600 ml Balance 480 ml 600 ml Labs: Laboratory Tests Test 03/06/22 06:00 White Blood Count 5.4 x10^3/uL (4.0-11.0) Red Blood Count 3.47 x10^6/uL (4.30-5.70) L Hemoglobin 11.2 g/dL (13.0-17.5) L Hematocrit 34.0 % (39.0-53.0) L Mean Corpuscular Volume 98 fL (79-100) Mean Corpuscular Hemoglobin 32 pg (25-35) Mean Corpuscular Hemoglobin Concent 33 g/dL (31-37) Red Cell Distribution Width 13.8 % (11.5-14.5) Platelet Count 127 x10^3/uL (140-400) L Neutrophils (%) (Auto) 57 % (31-73) Lymphocytes (%) (Auto) 29 % (24-48) Monocytes (%) (Auto) 10 % (0-9) H Eosinophils (%) (Auto) 4 % (0-3) H Basophils (%) (Auto) 0 % (0-3) Neutrophils # (Auto) 3.0 x10^3uL (1.8-7.7) Lymphocytes # (Auto) 1.6 x10^3/uL (1.0-4.8) Monocytes # (Auto) 0.5 x10^3/uL (0.0-1.1) Eosinophils # (Auto) 0.2 x10^3/uL (0.0-0.7) Basophils # (Auto) 0.0 x10^3/uL (0.0-0.2) Sodium Level 145 mmol/L (136-145) Potassium Level 4.2 mmol/L (3.5-5.1) Chloride Level 111 mmol/L (98-107) H Carbon Dioxide Level 29 mmol/L (21-32) Anion Gap 5 (6-14) L Blood Urea Nitrogen 28 mg/dL (8-26) H Creatinine 1.5 mg/dL (0.7-1.3) H Estimated GFR (Cockcroft-Gault) 44.9 BUN/Creatinine Ratio 19 (6-20) Glucose Level 87 mg/dL (70-99) Calcium Level 8.2 mg/dL (8.5-10.1) L Total Bilirubin 0.4 mg/dL (0.2-1.0) Aspartate Amino Transferase (AST) 17 U/L (15-37) Alanine Aminotransferase (ALT) 30 U/L (16-63) Alkaline Phosphatase 85 U/L (46-116) Ammonia < 10 mcmol/L (11-34) L Total Protein 6.0 g/dL (6.4-8.2) L Albumin 3.0 g/dL (3.4-5.0) L Albumin/Globulin Ratio 1.0 (1.0-1.7) Valproic Acid Level 23 mcg/mL (50-100) L Valproic Acid Last Dose Date 03/05/22 Valproic Acid Last Dose Time 1700 Current Medications: Meds: Laboratory Tests Test 03/06/22 06:00 White Blood Count 5.4 x10^3/uL Red Blood Count 3.47 x10^6/uL Hemoglobin 11.2 g/dL Hematocrit 34.0 % Mean Corpuscular Volume 98 fL Mean Corpuscular Hemoglobin 32 pg Mean Corpuscular Hemoglobin Concent 33 g/dL Red Cell Distribution Width 13.8 % Platelet Count 127 x10^3/uL Neutrophils (%) (Auto) 57 % Lymphocytes (%) (Auto) 29 % Monocytes (%) (Auto) 10 % Eosinophils (%) (Auto) 4 % Basophils (%) (Auto) 0 % Neutrophils # (Auto) 3.0 x10^3uL Lymphocytes # (Auto) 1.6 x10^3/uL Monocytes # (Auto) 0.5 x10^3/uL Eosinophils # (Auto) 0.2 x10^3/uL Basophils # (Auto) 0.0 x10^3/uL Sodium Level 145 mmol/L Potassium Level 4.2 mmol/L Chloride Level 111 mmol/L Carbon Dioxide Level 29 mmol/L Anion Gap 5 Blood Urea Nitrogen 28 mg/dL Creatinine 1.5 mg/dL Estimated GFR (Cockcroft-Gault) 44.9 BUN/Creatinine Ratio 19 Glucose Level 87 mg/dL Calcium Level 8.2 mg/dL Total Bilirubin 0.4 mg/dL Aspartate Amino Transf (AST/SGOT) 17 U/L Alanine Aminotransferase (ALT/SGPT) 30 U/L Alkaline Phosphatase 85 U/L Ammonia < 10 mcmol/L Total Protein 6.0 g/dL Albumin 3.0 g/dL Albumin/Globulin Ratio 1.0 Valproic Acid (Depakene) Level 23 mcg/mL Valproic Acid Last Dose Date 03/05/22 Valproic Acid Last Dose Time 1700 Current Medications Medications (Trade) Dose Ordered Sig/Valentino Route PRN Reason Start Time Stop Time Status Last Admin Dose Admin Acetaminophen (Tylenol) 650 mg PRN Q4HRS PRN PO MILD PAIN / TEMP > 100.3'F 02/24/22 13:30 03/06/22 13:31 Hydralazine HCl (Apresoline) 25 mg PRN QID PRN PO HYPERTENSION 02/24/22 13:30 Lorazepam (Ativan) 0.5 mg PRN Q6HRS PRN PO ANXIETY 02/24/22 13:30 03/04/22 18:36 Ondansetron HCl (Zofran Odt) 4 mg PRN Q4HRS PRN PO NAUSEA/VOMITING 02/24/22 13:30 Polyethylene Glycol (miraLAX) 17 gm PRN DAILY PRN PO 1ST CHOICE CONSTIPATION 02/24/22 13:30 Quetiapine Fumarate (SEROquel) 50 mg QHS PO 02/24/22 21:00 03/06/22 20:31 Quetiapine Fumarate (SEROquel) 100 mg DAILY PO 02/25/22 09:00 03/06/22 07:42 Sertraline HCl (Zoloft) 50 mg DAILY PO 02/25/22 09:00 02/25/22 17:01 DC 02/25/22 07:45 Temazepam (Restoril) 15 mg QHS PO 02/24/22 21:00 03/06/22 20:32 Atorvastatin Calcium (Lipitor) 80 mg DAILY PO 02/25/22 09:00 02/25/22 11:05 DC Glucosamine/ Chondroitin (Glucosamine-Chondroitin 500/400mg) 1 cap DAILY PO 02/25/22 09:00 03/06/22 07:42 Metoprolol Succinate (Toprol Xl) 100 mg DAILY PO 02/25/22 09:00 03/06/22 07:42 Multivitamins/ Calcium (Thera-M Plus) 1 tab DAILY PO 02/25/22 09:00 03/06/22 07:42 Acetaminophen (Tylenol) 650 mg PRN Q6HRS PRN PO MILD PAIN / TEMP > 100.3'F 02/24/22 13:45 Cancel Multi-Ingredient Ointment (Analgesic [place]) 1 marifer PRN QID PRN TP MUSCLE PAIN 02/24/22 13:45 Al Hydroxide/Mg Hydroxide (Mylanta Plus Xs) 15 ml PRN AFTMEALHC PRN PO DYSPEPSIA 02/24/22 13:45 Magnesium Hydroxide (Milk Of Magnesia) 2,400 mg PRN QHS PRN PO 2ND CHOICE CONSTIPATION 02/24/22 13:45 Atorvastatin Calcium (Lipitor) 80 mg HS PO 02/25/22 21:00 03/06/22 20:31 Sertraline HCl (Zoloft) 75 mg DAILY PO 02/26/22 09:00 03/01/22 20:19 DC 03/01/22 08:23 Divalproex Sodium (Depakote Sprinkles) 125 mg 0900,1700 PO 02/27/22 09:00 03/02/22 20:38 DC 03/02/22 16:04 Mirtazapine (Remeron) 7.5 mg QHS PO 02/27/22 21:00 03/06/22 20:31 Sertraline HCl (Zoloft) 100 mg DAILY PO 03/02/22 09:00 03/06/22 07:42 Divalproex Sodium (Depakote Sprinkles) 250 mg DAILY PO 03/03/22 09:00 UNV Divalproex Sodium (Depakote Sprinkles) 250 mg 0900 PO 03/03/22 09:00 03/06/22 07:43 Divalproex Sodium (Depakote Sprinkles) 125 mg 1700 PO 03/03/22 17:00 03/06/22 16:19 I have reviewed the current psychotropics carefully including drug interactions. Risk benefit ratio favors no change other than as noted in my dictated progress note. 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
[2022-03-07 07:03] VITALS: BP 125/75
[2022-03-07] MEDS: DIVALPROEX 125 MG CAP.SPRINK PO SCH ×2 (08:50→17:12)
[2022-03-07] MEDS: GLUCOSAMINE/CHOND 500/400MG CAPSULE PO SCH (08:50)
[2022-03-07] MEDS: QUEtiapine 100 MG TABLET. PO SCH (08:50)
[2022-03-07] MEDS: SERTRALINE 50 MG TABLET. PO SCH (08:50)
[2022-03-07] MEDS: MULTIVITAMIN with MINERAL TABLET. PO SCH (08:50)
[2022-03-07] MEDS: METOPROLOL SUCC 24HR ER 50 MG TAB.ER.24H. PO SCH (08:52)
--- NOTE | 2022-03-07 08:56 | PDOC ---
Exam Note: Jimmy Note: This note is a late entry for 03/06/2022 covers elements not covered in my initial note. Subjective: The patient was reviewed at treatment team meeting individually in the morning on 03/06/2022 with Diann Corea, Trista Copeland, and Karena Rollins (manager social services), Anju, activity therapy, and Samantha RN, discussed and reviewed the chart. The patient slept 7 hours previous night. Patients Jesusita attended treatment team meeting. She visited the patient yesterday but the patient apparently did not recognize her. He has been less intrusive into going into others rooms. He attended 4 groups. [facility] report is pending per manager social services. Discussed with Christina HAMPTON in the evening. He has been wandering but redirects. I met with him in the dayroom. Review of Systems: No CV, , pulmonary, eye, ENT system symptoms on review. Reliability poor. Mental Status Exam: Patient is oriented to himself. Insight and judgment, rec ent and remote memory, attention and concentration, fund of knowledge is poor consistent with his diagnoses. Laboratory Data: Reviewed. Impression: Major neurocognitive disorder, Alzheimer, vascular with delusion, depression, behavioral disturbance. Anxiety disorder unspecified. Impulse control disorder unspecified. Plan: Continue current psychotropics unchanged. Reviewed drug interactions, risk-benefit ratio. Adjust as clinically indicated. Assessment: Vital Signs/I&O: Vital Signs Date Time Temp Pulse Resp B/P (MAP) Pulse Ox O2 Delivery O2 Flow Rate FiO2 03/07/22 08:52 63 125/75 03/07/22 07:03 97.8 16 98 Room Air I & O 03/06/22 03/06/22 03/07/22 15:00 23:00 07:00 Intake Total 600 ml 480 ml Balance 600 ml 480 ml Current Medications: I have reviewed the current psychotropics carefully including drug interactions. Risk benefit ratio favors no change other than as noted in my dictated progress note. 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
[2022-03-07 17:22] VITALS: BP 145/72
[2022-03-07] MEDS: ATORVASTATIN CALCIUM 20 MG TABLET PO SCH (20:11)
[2022-03-07] MEDS: MIRTAZAPINE 7.5 MG TABLET. PO SCH (20:12)
[2022-03-07] MEDS: TEMAZEPAM 15 MG CAPSULE PO SCH (20:12)
[2022-03-07] MEDS: QUEtiapine 50 MG TABLET. PO SCH (20:12)
--- NOTE | 2022-03-07 21:38 | PDOC ---
Exam Note: Jimmy Note: Please also refer to the separate dictated note~for this date of service dictated separately.~Patient seen individually. Discussed the patient with Nursing staff reviewed the chart.~Reviewed interim history and current functioning. Reviewed vital signs,~Labs/ Radiology~and current medications noted below. Continue current treatment with the changes noted in the dictated addendum note Assessment: Vital Signs/I&O: Vital Signs Date Time Temp Pulse Resp B/P (MAP) Pulse Ox O2 Delivery O2 Flow Rate FiO2 03/07/22 17:22 98.9 71 18 145/72 (96) 95 03/07/22 07:03 Room Air I & O 03/06/22 03/06/22 03/07/22 14:59 22:59 06:59 Intake Total 600 ml 480 ml Balance 600 ml 480 ml Current Medications: Meds: Current Medications Medications (Trade) Dose Ordered Sig/Valentino Route PRN Reason Start Time Stop Time Status Last Admin Dose Admin Acetaminophen (Tylenol) 650 mg PRN Q4HRS PRN PO MILD PAIN / TEMP > 100.3'F 02/24/22 13:30 03/06/22 13:31 Hydralazine HCl (Apresoline) 25 mg PRN QID PRN PO HYPERTENSION 02/24/22 13:30 Lorazepam (Ativan) 0.5 mg PRN Q6HRS PRN PO ANXIETY 02/24/22 13:30 03/04/22 18:36 Ondansetron HCl (Zofran Odt) 4 mg PRN Q4HRS PRN PO NAUSEA/VOMITING 02/24/22 13:30 Polyethylene Glycol (miraLAX) 17 gm PRN DAILY PRN PO 1ST CHOICE CONSTIPATION 02/24/22 13:30 Quetiapine Fumarate (SEROquel) 50 mg QHS PO 02/24/22 21:00 03/07/22 20:12 Quetiapine Fumarate (SEROquel) 100 mg DAILY PO 02/25/22 09:00 03/07/22 08:50 Sertraline HCl (Zoloft) 50 mg DAILY PO 02/25/22 09:00 02/25/22 17:01 DC 02/25/22 07:45 Temazepam (Restoril) 15 mg QHS PO 02/24/22 21:00 03/07/22 20:12 Atorvastatin Calcium (Lipitor) 80 mg DAILY PO 02/25/22 09:00 02/25/22 11:05 DC Glucosamine/ Chondroitin (Glucosamine-Chondroitin 500/400mg) 1 cap DAILY PO 02/25/22 09:00 03/07/22 08:50 Metoprolol Succinate (Toprol Xl) 100 mg DAILY PO 02/25/22 09:00 03/07/22 08:52 Multivitamins/ Calcium (Thera-M Plus) 1 tab DAILY PO 02/25/22 09:00 03/07/22 08:50 Acetaminophen (Tylenol) 650 mg PRN Q6HRS PRN PO MILD PAIN / TEMP > 100.3'F 02/24/22 13:45 Cancel Multi-Ingredient Ointment (Analgesic [place]) 1 marifer PRN QID PRN TP MUSCLE PAIN 02/24/22 13:45 Al Hydroxide/Mg Hydroxide (Mylanta Plus Xs) 15 ml PRN AFTMEALHC PRN PO DYSPEPSIA 02/24/22 13:45 Magnesium Hydroxide (Milk Of Magnesia) 2,400 mg PRN QHS PRN PO 2ND CHOICE CONSTIPATION 02/24/22 13:45 Atorvastatin Calcium (Lipitor) 80 mg HS PO 02/25/22 21:00 03/07/22 20:11 Sertraline HCl (Zoloft) 75 mg DAILY PO 02/26/22 09:00 03/01/22 20:19 DC 03/01/22 08:23 Divalproex Sodium (Depakote Sprinkles) 125 mg 0900,1700 PO 02/27/22 09:00 03/02/22 20:38 DC 03/02/22 16:04 Mirtazapine (Remeron) 7.5 mg QHS PO 02/27/22 21:00 03/07/22 20:12 Sertraline HCl (Zoloft) 100 mg DAILY PO 03/02/22 09:00 03/07/22 08:50 Divalproex Sodium (Depakote Sprinkles) 250 mg DAILY PO 03/03/22 09:00 UNV Divalproex Sodium (Depakote Sprinkles) 250 mg 0900 PO 03/03/22 09:00 03/07/22 08:50 Divalproex Sodium (Depakote Sprinkles) 125 mg 1700 PO 03/03/22 17:00 03/07/22 17:12 I have reviewed the current psychotropics carefully including drug interactions. Risk benefit ratio favors no change other than as noted in my dictated progress note. 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
[2022-03-08 06:21] VITALS: BP 124/68
[2022-03-08] MEDS: GLUCOSAMINE/CHOND 500/400MG CAPSULE PO SCH (08:36)
[2022-03-08] MEDS: DIVALPROEX 125 MG CAP.SPRINK PO SCH ×2 (08:37→17:07)
[2022-03-08] MEDS: MULTIVITAMIN with MINERAL TABLET. PO SCH (08:37)
[2022-03-08] MEDS: QUEtiapine 100 MG TABLET. PO SCH (08:37)
[2022-03-08] MEDS: SERTRALINE 50 MG TABLET. PO SCH (08:37)
[2022-03-08] MEDS: METOPROLOL SUCC 24HR ER 50 MG TAB.ER.24H. PO SCH (08:38)
--- NOTE | 2022-03-08 09:06 | PDOC ---
Exam Note: Jimmy Note: This note is a late entry for 03/07/2022 covers elements not covered in my initial note. Subjective: The patient was seen individually in the evening on 03/07/2022, discussed and reviewed the chart with Mikey HAMPTON. The patient slept 6-1/2 hours previous night. Valproic acid level was 23 on 03/06/22. The patient is less agitated, still checking doors. Review of Systems: No CV, , pulmonary, eye, ENT system symptoms on review. Mental Status Exam: Patient is oriented to himself. Insight and judgment, recent and remote memory, attention and concentration, fund of knowledge is poor consistent with his diagnoses. Laboratory Data: Reviewed. Impression: Major neurocognitive disorder, Alzheimer, vascular with delusion, depression, behavioral disturbance. Anxiety disorder unspecified. Impulse control disorder unspecified. Plan: Continue current psychotropics unchanged. Reviewed drug interactions, risk-benefit ratio. Adjust as clinically indicated. Assessment: Vital Signs/I&O: Vital Signs Date Time Temp Pulse Resp B/P (MAP) Pulse Ox O2 Delivery O2 Flow Rate FiO2 03/08/22 08:38 79 144/68 03/08/22 06:21 98.1 18 93 03/07/22 07:03 Room Air I & O 03/07/22 03/07/22 03/08/22 15:00 23:00 07:00 Intake Total 440 ml 480 ml Balance 440 ml 480 ml Current Medications: I have reviewed the current psychotropics carefully including drug interactions. Risk benefit ratio favors no change other than as noted in my dictated progress note. 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
[2022-03-08 15:52] VITALS: BP 122/64
[2022-03-08] MEDS: QUEtiapine 50 MG TABLET. PO SCH (20:17)
[2022-03-08] MEDS: TEMAZEPAM 15 MG CAPSULE PO SCH (20:17)
[2022-03-08] MEDS: ATORVASTATIN CALCIUM 20 MG TABLET PO SCH (20:18)
[2022-03-08] MEDS: MIRTAZAPINE 7.5 MG TABLET. PO SCH (20:18)
--- NOTE | 2022-03-08 21:56 | PDOC ---
Exam Note: Jimmy Note: Please also refer to the separate dictated note~for this date of service dictated separately.~Patient seen individually. Discussed the patient with Nursing staff reviewed the chart.~Reviewed interim history and current functioning. Reviewed vital signs,~Labs/ Radiology~and current medications noted below. Continue current treatment with the changes noted in the dictated addendum note Assessment: Vital Signs/I&O: Vital Signs Date Time Temp Pulse Resp B/P (MAP) Pulse Ox O2 Delivery O2 Flow Rate FiO2 03/08/22 15:52 98.0 64 18 122/64 (83) 95 03/07/22 07:03 Room Air I & O 03/07/22 03/07/22 03/08/22 15:00 23:00 07:00 Intake Total 440 ml 480 ml Balance 440 ml 480 ml Current Medications: Meds: Current Medications Medications (Trade) Dose Ordered Sig/Valentino Route PRN Reason Start Time Stop Time Status Last Admin Dose Admin Acetaminophen (Tylenol) 650 mg PRN Q4HRS PRN PO MILD PAIN / TEMP > 100.3'F 02/24/22 13:30 03/06/22 13:31 Hydralazine HCl (Apresoline) 25 mg PRN QID PRN PO HYPERTENSION 02/24/22 13:30 Lorazepam (Ativan) 0.5 mg PRN Q6HRS PRN PO ANXIETY 02/24/22 13:30 03/04/22 18:36 Ondansetron HCl (Zofran Odt) 4 mg PRN Q4HRS PRN PO NAUSEA/VOMITING 02/24/22 13:30 Polyethylene Glycol (miraLAX) 17 gm PRN DAILY PRN PO 1ST CHOICE CONSTIPATION 02/24/22 13:30 Quetiapine Fumarate (SEROquel) 50 mg QHS PO 02/24/22 21:00 03/08/22 20:17 Quetiapine Fumarate (SEROquel) 100 mg DAILY PO 02/25/22 09:00 03/08/22 08:37 Sertraline HCl (Zoloft) 50 mg DAILY PO 02/25/22 09:00 02/25/22 17:01 DC 02/25/22 07:45 Temazepam (Restoril) 15 mg QHS PO 02/24/22 21:00 03/08/22 20:17 Atorvastatin Calcium (Lipitor) 80 mg DAILY PO 02/25/22 09:00 02/25/22 11:05 DC Glucosamine/ Chondroitin (Glucosamine-Chondroitin 500/400mg) 1 cap DAILY PO 02/25/22 09:00 03/08/22 08:36 Metoprolol Succinate (Toprol Xl) 100 mg DAILY PO 02/25/22 09:00 03/08/22 08:38 Multivitamins/ Calcium (Thera-M Plus) 1 tab DAILY PO 02/25/22 09:00 03/08/22 08:37 Acetaminophen (Tylenol) 650 mg PRN Q6HRS PRN PO MILD PAIN / TEMP > 100.3'F 02/24/22 13:45 Cancel Multi-Ingredient Ointment (Analgesic [place]) 1 marifer PRN QID PRN TP MUSCLE PAIN 02/24/22 13:45 Al Hydroxide/Mg Hydroxide (Mylanta Plus Xs) 15 ml PRN AFTMEALHC PRN PO DYSPEPSIA 02/24/22 13:45 Magnesium Hydroxide (Milk Of Magnesia) 2,400 mg PRN QHS PRN PO 2ND CHOICE CONSTIPATION 02/24/22 13:45 Atorvastatin Calcium (Lipitor) 80 mg HS PO 02/25/22 21:00 03/08/22 20:18 Sertraline HCl (Zoloft) 75 mg DAILY PO 02/26/22 09:00 03/01/22 20:19 DC 03/01/22 08:23 Divalproex Sodium (Depakote Sprinkles) 125 mg 0900,1700 PO 02/27/22 09:00 03/02/22 20:38 DC 03/02/22 16:04 Mirtazapine (Remeron) 7.5 mg QHS PO 02/27/22 21:00 03/08/22 20:18 Sertraline HCl (Zoloft) 100 mg DAILY PO 03/02/22 09:00 03/08/22 08:37 Divalproex Sodium (Depakote Sprinkles) 250 mg DAILY PO 03/03/22 09:00 UNV Divalproex Sodium (Depakote Sprinkles) 250 mg 0900 PO 03/03/22 09:00 03/08/22 08:37 Divalproex Sodium (Depakote Sprinkles) 125 mg 1700 PO 03/03/22 17:00 03/08/22 17:07 I have reviewed the current psychotropics carefully including drug interactions. Risk benefit ratio favors no change other than as noted in my dictated progress note. Diagnosis: Problems: (1) Impulse control disorder, unspecified (2) Anxiety disorder, unspecified (3) Dementia, vascular, with depression (4) Dementia, vascular, with delusions (5) Dementia in Alzheimer's disease with depression (6) Dementia in Alzheimer's disease with delusions (7) Dementia of the Alzheimer's type with early onset with behavioral disturbance (8) Major neurocognitive disorder NOAH SEE MD Mar 08, 2022 21:56
[2022-03-09 06:32] VITALS: BP 145/85
[2022-03-09] MEDS: DIVALPROEX 125 MG CAP.SPRINK PO SCH ×2 (07:43→17:00)
[2022-03-09] MEDS: METOPROLOL SUCC 24HR ER 50 MG TAB.ER.24H. PO SCH (07:43)
[2022-03-09] MEDS: GLUCOSAMINE/CHOND 500/400MG CAPSULE PO SCH (07:43)
[2022-03-09] MEDS: SERTRALINE 50 MG TABLET. PO SCH (07:43)
[2022-03-09] MEDS: MULTIVITAMIN with MINERAL TABLET. PO SCH (07:43)
[2022-03-09] MEDS: QUEtiapine 100 MG TABLET. PO SCH (07:43)
[2022-03-09 15:53] VITALS: BP 135/80
[2022-03-09] MEDS: ATORVASTATIN CALCIUM 20 MG TABLET PO SCH (20:21)
[2022-03-09] MEDS: QUEtiapine 50 MG TABLET. PO SCH (20:21)
[2022-03-09] MEDS: TEMAZEPAM 15 MG CAPSULE PO SCH (20:21)
[2022-03-09] MEDS: MIRTAZAPINE 7.5 MG TABLET. PO SCH (20:21)
--- NOTE | 2022-03-09 21:35 | PDOC ---
Exam Note: Jimmy Note: Please also refer to the separate dictated note~for this date of service dictated separately.~Patient seen individually. Discussed the patient with Nursing staff reviewed the chart.~Reviewed interim history and current functioning. Reviewed vital signs,~Labs/ Radiology~and current medications noted below. Continue current treatment with the changes noted in the dictated addendum note Assessment: Vital Signs/I&O: Vital Signs Date Time Temp Pulse Resp B/P (MAP) Pulse Ox O2 Delivery O2 Flow Rate FiO2 03/09/22 15:53 98.2 63 16 135/80 (98) 94 Room Air I & O 03/08/22 03/08/22 03/09/22 15:00 23:00 07:00 Intake Total 600 ml 480 ml Balance 600 ml 480 ml Current Medications: Meds: Current Medications Medications (Trade) Dose Ordered Sig/Valentino Route PRN Reason Start Time Stop Time Status Last Admin Dose Admin Acetaminophen (Tylenol) 650 mg PRN Q4HRS PRN PO MILD PAIN / TEMP > 100.3'F 02/24/22 13:30 03/06/22 13:31 Hydralazine HCl (Apresoline) 25 mg PRN QID PRN PO HYPERTENSION 02/24/22 13:30 Lorazepam (Ativan) 0.5 mg PRN Q6HRS PRN PO ANXIETY 02/24/22 13:30 03/04/22 18:36 Ondansetron HCl (Zofran Odt) 4 mg PRN Q4HRS PRN PO NAUSEA/VOMITING 02/24/22 13:30 Polyethylene Glycol (miraLAX) 17 gm PRN DAILY PRN PO 1ST CHOICE CONSTIPATION 02/24/22 13:30 Quetiapine Fumarate (SEROquel) 50 mg QHS PO 02/24/22 21:00 03/09/22 20:21 Quetiapine Fumarate (SEROquel) 100 mg DAILY PO 02/25/22 09:00 03/09/22 07:43 Sertraline HCl (Zoloft) 50 mg DAILY PO 02/25/22 09:00 02/25/22 17:01 DC 02/25/22 07:45 Temazepam (Restoril) 15 mg QHS PO 02/24/22 21:00 03/09/22 20:21 Atorvastatin Calcium (Lipitor) 80 mg DAILY PO 02/25/22 09:00 02/25/22 11:05 DC Glucosamine/ Chondroitin (Glucosamine-Chondroitin 500/400mg) 1 cap DAILY PO 02/25/22 09:00 03/09/22 07:43 Metoprolol Succinate (Toprol Xl) 100 mg DAILY PO 02/25/22 09:00 03/09/22 07:43 Multivitamins/ Calcium (Thera-M Plus) 1 tab DAILY PO 02/25/22 09:00 03/09/22 07:43 Acetaminophen (Tylenol) 650 mg PRN Q6HRS PRN PO MILD PAIN / TEMP > 100.3'F 02/24/22 13:45 Cancel Multi-Ingredient Ointment (Analgesic [place]) 1 marifer PRN QID PRN TP MUSCLE PAIN 02/24/22 13:45 Al Hydroxide/Mg Hydroxide (Mylanta Plus Xs) 15 ml PRN AFTMEALHC PRN PO DYSPEPSIA 02/24/22 13:45 Magnesium Hydroxide (Milk Of Magnesia) 2,400 mg PRN QHS PRN PO 2ND CHOICE CONSTIPATION 02/24/22 13:45 Atorvastatin Calcium (Lipitor) 80 mg HS PO 02/25/22 21:00 03/09/22 20:21 Sertraline HCl (Zoloft) 75 mg DAILY PO 02/26/22 09:00 03/01/22 20:19 DC 03/01/22 08:23 Divalproex Sodium (Depakote Sprinkles) 125 mg 0900,1700 PO 02/27/22 09:00 03/02/22 20:38 DC 03/02/22 16:04 Mirtazapine (Remeron) 7.5 mg QHS PO 02/27/22 21:00 03/09/22 20:21 Sertraline HCl (Zoloft) 100 mg DAILY PO 03/02/22 09:00 03/09/22 07:43 Divalproex Sodium (Depakote Sprinkles) 250 mg DAILY PO 03/03/22 09:00 UNV Divalproex Sodium (Depakote Sprinkles) 250 mg 0900 PO 03/03/22 09:00 03/09/22 07:43 Divalproex Sodium (Depakote Sprinkles) 125 mg 1700 PO 03/03/22 17:00 03/09/22 17:00 I have reviewed the current psychotropics carefully including drug interactions. Risk benefit ratio favors no change other than as noted in my dictated progress note. Diagnosis: Problems: (1) Impulse control disorder, unspecified (2) Anxiety disorder, unspecified (3) Dementia, vascular, with depression (4) Dementia, vascular, with delusions (5) Dementia in Alzheimer's disease with depression (6) Dementia in Alzheimer's disease with delusions (7) Dementia of the Alzheimer's type with early onset with behavioral disturbance (8) Major neurocognitive disorder NOAH SEE MD March 09, 2022 21:35
[2022-03-10 06:13] VITALS: BP 151/77
--- NOTE | 2022-03-10 06:48 | PDOC ---
Exam Note: Jimmy Note: This note is a late entry for 03/08/2022 covers elements not covered in my initial note. Subjective: The patient was seen individually in the evening on 03/08/2022, discussed and reviewed the chart with Carmelita HAMPTON. The patient slept 6-3/4 hours previous night. He remains confused, wandering the hallways. In the afternoon he was agitated after lunch since he was looking for his but then staff gave him pack of cards and this seemed to calm him down. Review of Systems: No CV, , pulmonary, eye, ENT system symptoms on review. Mental Status Exam: Patient is oriented to himself. Insight and judgment, recent and remote memory, attention and concentration, fund of knowledge is poor consistent with his diagnoses. Laboratory Data: Reviewed. Impression: Major neurocognitive disorder, Alzheimer, vascular with delusion, depression, behavioral disturbance. Anxiety disorder unspecified. Impulse control disorder unspecified. Plan: Continue current psychotropics unchanged. Reviewed drug interactions, risk-benefit ratio. Adjust as clinically indicated. Assessment: Vital Signs/I&O: Vital Signs Date Time Temp Pulse Resp B/P (MAP) Pulse Ox O2 Delivery O2 Flow Rate FiO2 03/10/22 06:13 97.7 68 18 151/77 (101) 97 03/09/22 15:53 Room Air I & O 03/09/22 03/09/22 03/10/22 15:00 23:00 07:00 Intake Total 840 ml 480 ml Balance 840 ml 480 ml Current Medications: I have reviewed the current psychotropics carefully including drug interactions. Risk benefit ratio favors no change other than as noted in my dictated progress note. Diagnosis: Problems: (1) Impulse control disorder, unspecified (2) Anxiety disorder, unspecified (3) Dementia, vascular, with depression (4) Dementia, vascular, with delusions (5) Dementia in Alzheimer's disease with depression (6) Dementia in Alzheimer's disease with delusions (7) Dementia of the Alzheimer's type with early onset with behavioral disturbance (8) Major neurocognitive disorder NOAH SEE MD March 10, 2022 06:48
--- NOTE | 2022-03-10 07:01 | PDOC ---
Exam Note: Jmimy Note: This note is a late entry for 03/09/2022 covers elements not covered in my initial note. Subjective: The patient was seen individually in the evening on 03/09/2022, discussed and reviewed the chart with Christina HAMPTON. The patient slept 7-3/4 hours previous night. He remains confused. I met with him in the hallway. He has not been aggressive. Review of Systems: No CV, , pulmonary, eye, ENT system symptoms on review. Mental Status Exam: Patient is oriented to himself. Insight and judgment, recent and remote memory, attention and concentration, fund of knowledge is poor consistent with his diagnoses. Laboratory Data: Reviewed. Impression: Major neurocognitive disorder, Alzheimer, vascular with delusion, depression, behavioral disturbance. Anxiety disorder unspecified. Impulse control disorder unspecified. Plan: Continue current psychotropics unchanged. Reviewed drug interactions, risk-benefit ratio. Adjust as clinically indicated. Assessment: Vital Signs/I&O: Vital Signs Date Time Temp Pulse Resp B/P (MAP) Pulse Ox O2 Delivery O2 Flow Rate FiO2 03/10/22 06:13 97.7 68 18 151/77 (101) 97 03/09/22 15:53 Room Air I & O 03/09/22 03/09/22 03/10/22 15:00 23:00 07:00 Intake Total 840 ml 480 ml Balance 840 ml 480 ml Current Medications: I have reviewed the current psychotropics carefully including drug interactions. Risk benefit ratio favors no change other than as noted in my dictated progress note. Diagnosis: Problems: (1) Impulse control disorder, unspecified (2) Anxiety disorder, unspecified (3) Dementia, vascular, with depression (4) Dementia, vascular, with delusions (5) Dementia in Alzheimer's disease with depression (6) Dementia in Alzheimer's disease with delusions (7) Dementia of the Alzheimer's type with early onset with behavioral disturbance (8) Major neurocognitive disorder NOAH SEE MD March 10, 2022 07:01
[2022-03-10] MEDS: QUEtiapine 100 MG TABLET. PO SCH (08:03)
[2022-03-10] MEDS: SERTRALINE 50 MG TABLET. PO SCH (08:03)
[2022-03-10] MEDS: DIVALPROEX 125 MG CAP.SPRINK PO SCH ×2 (08:03→16:53)
[2022-03-10] MEDS: GLUCOSAMINE/CHOND 500/400MG CAPSULE PO SCH (08:03)
[2022-03-10] MEDS: MULTIVITAMIN with MINERAL TABLET. PO SCH (08:03)
[2022-03-10] MEDS: METOPROLOL SUCC 24HR ER 50 MG TAB.ER.24H. PO SCH (08:04)
[2022-03-10] MEDS: ACETAMINOPHEN 325 MG TABLET PO PRN (09:12)
[2022-03-10 15:48] VITALS: BP 134/79
[2022-03-10] MEDS: QUEtiapine 50 MG TABLET. PO SCH (20:49)
[2022-03-10] MEDS: TEMAZEPAM 15 MG CAPSULE PO SCH (20:49)
[2022-03-10] MEDS: ATORVASTATIN CALCIUM 20 MG TABLET PO SCH (20:49)
[2022-03-10] MEDS: MIRTAZAPINE 7.5 MG TABLET. PO SCH (20:49)
--- NOTE | 2022-03-10 21:37 | PDOC ---
Exam Note: Jimmy Note: Please also refer to the separate dictated note~for this date of service dictated separately.~Patient seen individually. Discussed the patient with Nursing staff reviewed the chart.~Reviewed interim history and current functioning. Reviewed vital signs,~Labs/ Radiology~and current medications noted below. Continue current treatment with the changes noted in the dictated addendum note Assessment: Vital Signs/I&O: Vital Signs Date Time Temp Pulse Resp B/P (MAP) Pulse Ox O2 Delivery O2 Flow Rate FiO2 03/10/22 15:48 97.6 66 18 134/79 (97) 100 03/09/22 15:53 Room Air I & O 03/09/22 03/09/22 03/10/22 15:00 23:00 07:00 Intake Total 840 ml 480 ml Balance 840 ml 480 ml Current Medications: Meds: Current Medications Medications (Trade) Dose Ordered Sig/Valentino Route PRN Reason Start Time Stop Time Status Last Admin Dose Admin Acetaminophen (Tylenol) 650 mg PRN Q4HRS PRN PO MILD PAIN / TEMP > 100.3'F 02/24/22 13:30 03/10/22 09:12 Hydralazine HCl (Apresoline) 25 mg PRN QID PRN PO HYPERTENSION 02/24/22 13:30 Lorazepam (Ativan) 0.5 mg PRN Q6HRS PRN PO ANXIETY 02/24/22 13:30 03/04/22 18:36 Ondansetron HCl (Zofran Odt) 4 mg PRN Q4HRS PRN PO NAUSEA/VOMITING 02/24/22 13:30 Polyethylene Glycol (miraLAX) 17 gm PRN DAILY PRN PO 1ST CHOICE CONSTIPATION 02/24/22 13:30 Quetiapine Fumarate (SEROquel) 50 mg QHS PO 02/24/22 21:00 03/10/22 20:49 Quetiapine Fumarate (SEROquel) 100 mg DAILY PO 02/25/22 09:00 03/10/22 08:03 Sertraline HCl (Zoloft) 50 mg DAILY PO 02/25/22 09:00 02/25/22 17:01 DC 02/25/22 07:45 Temazepam (Restoril) 15 mg QHS PO 02/24/22 21:00 03/10/22 20:49 Atorvastatin Calcium (Lipitor) 80 mg DAILY PO 02/25/22 09:00 02/25/22 11:05 DC Glucosamine/ Chondroitin (Glucosamine-Chondroitin 500/400mg) 1 cap DAILY PO 02/25/22 09:00 03/10/22 08:03 Metoprolol Succinate (Toprol Xl) 100 mg DAILY PO 02/25/22 09:00 03/10/22 08:04 Multivitamins/ Calcium (Thera-M Plus) 1 tab DAILY PO 02/25/22 09:00 03/10/22 08:03 Acetaminophen (Tylenol) 650 mg PRN Q6HRS PRN PO MILD PAIN / TEMP > 100.3'F 02/24/22 13:45 Cancel Multi-Ingredient Ointment (Analgesic [place]) 1 marifer PRN QID PRN TP MUSCLE PAIN 02/24/22 13:45 Al Hydroxide/Mg Hydroxide (Mylanta Plus Xs) 15 ml PRN AFTMEALHC PRN PO DYSPEPSIA 02/24/22 13:45 Magnesium Hydroxide (Milk Of Magnesia) 2,400 mg PRN QHS PRN PO 2ND CHOICE CONSTIPATION 02/24/22 13:45 Atorvastatin Calcium (Lipitor) 80 mg HS PO 02/25/22 21:00 03/10/22 20:49 Sertraline HCl (Zoloft) 75 mg DAILY PO 02/26/22 09:00 03/01/22 20:19 DC 03/01/22 08:23 Divalproex Sodium (Depakote Sprinkles) 125 mg 0900,1700 PO 02/27/22 09:00 03/02/22 20:38 DC 03/02/22 16:04 Mirtazapine (Remeron) 7.5 mg QHS PO 02/27/22 21:00 03/10/22 20:49 Sertraline HCl (Zoloft) 100 mg DAILY PO 03/02/22 09:00 03/10/22 08:03 Divalproex Sodium (Depakote Sprinkles) 250 mg DAILY PO 03/03/22 09:00 UNV Divalproex Sodium (Depakote Sprinkles) 250 mg 0900 PO 03/03/22 09:00 03/10/22 08:03 Divalproex Sodium (Depakote Sprinkles) 125 mg 1700 PO 03/03/22 17:00 5/2/22 16:53 I have reviewed the current psychotropics carefully including drug interactions. Risk benefit ratio favors no change other than as noted in my dictated progress note. Diagnosis: Problems: (1) Impulse control disorder, unspecified (2) Anxiety disorder, unspecified (3) Dementia, vascular, with depression (4) Dementia, vascular, with delusions (5) Dementia in Alzheimer's disease with depression (6) Dementia in Alzheimer's disease with delusions (7) Dementia of the Alzheimer's type with early onset with behavioral disturbance (8) Major neurocognitive disorder NOAH SEE MD March 10, 2022 21:37
[2022-03-11 06:29] VITALS: BP 160/86
[2022-03-11] MEDS: GLUCOSAMINE/CHOND 500/400MG CAPSULE PO SCH (08:01)
[2022-03-11] MEDS: QUEtiapine 100 MG TABLET. PO SCH (08:01)
[2022-03-11] MEDS: MULTIVITAMIN with MINERAL TABLET. PO SCH (08:02)
[2022-03-11] MEDS: DIVALPROEX 125 MG CAP.SPRINK PO SCH ×2 (08:02→17:00)
[2022-03-11] MEDS: SERTRALINE 50 MG TABLET. PO SCH (08:02)
[2022-03-11] MEDS: METOPROLOL SUCC 24HR ER 50 MG TAB.ER.24H. PO SCH (08:02)
--- NOTE | 2022-03-11 10:10 | PDOC ---
Exam Note: Jimmy Note: This note is a late entry for 03/10/2022 covers elements not covered in my initial note. Subjective: The patient was seen individually in the evening on 03/10/2022, discussed and reviewed the chart with Kenisha HAMPTON. The patient slept 7-1/4 hours previous night. He remains disorganized but at one point he was found in his room and had pulled the mattress off the bed and had it vertically placed along the wall. He does redirect. Review of Systems: No CV, , pulmonary, eye, ENT system symptoms on review. Mental Status Exam: Patient is oriented to himself. Insight and judgment, recent and remote memory, attention and concentration, fund of knowledge is poor consistent with his diagnoses. Laboratory Data: Reviewed. Impression: Major neurocognitive disorder, Alzheimer, vascular with delusion, depression, behavioral disturbance. Anxiety disorder unspecified. Impulse control disorder unspecified. Plan: Continue current psychotropics unchanged. Reviewed drug interactions, risk-benefit ratio. Adjust as clinically indicated. Assessment: Vital Signs/I&O: Vital Signs Date Time Temp Pulse Resp B/P (MAP) Pulse Ox O2 Delivery O2 Flow Rate FiO2 03/11/22 08:02 68 160/86 03/11/22 06:29 98.3 20 98 Room Air I & O 03/10/22 03/10/22 03/11/22 15:00 23:00 07:00 Intake Total 600 ml 480 ml 240 ml Balance 600 ml 480 ml 240 ml Current Medications: I have reviewed the current psychotropics carefully including drug interactions. Risk benefit ratio favors no change other than as noted in my dictated progress note. Diagnosis: Problems: (1) Impulse control disorder, unspecified (2) Anxiety disorder, unspecified (3) Dementia, vascular, with depression (4) Dementia, vascular, with delusions (5) Dementia in Alzheimer's disease with depression (6) Dementia in Alzheimer's disease with delusions (7) Dementia of the Alzheimer's type with early onset with behavioral disturbance (8) Major neurocognitive disorder NOAH SEE MD March 11, 2022 10:10
[2022-03-11] MEDS: TEMAZEPAM 15 MG CAPSULE PO SCH (19:51)
[2022-03-11] MEDS: MIRTAZAPINE 7.5 MG TABLET. PO SCH (19:51)
[2022-03-11] MEDS: QUEtiapine 50 MG TABLET. PO SCH (19:51)
[2022-03-11] MEDS: ATORVASTATIN CALCIUM 20 MG TABLET PO SCH (19:51)
--- NOTE | 2022-03-11 21:48 | PDOC ---
Exam Note: Jimmy Note: Please also refer to the separate dictated note~for this date of service dictated separately.~Patient seen individually. Discussed the patient with Nursing staff reviewed the chart.~Reviewed interim history and current functioning. Reviewed vital signs,~Labs/ Radiology~and current medications noted below. Continue current treatment with the changes noted in the dictated addendum note Assessment: Vital Signs/I&O: Vital Signs Date Time Temp Pulse Resp B/P (MAP) Pulse Ox O2 Delivery O2 Flow Rate FiO2 03/11/22 08:02 68 160/86 03/11/22 06:29 98.3 20 98 Room Air I & O 03/10/22 03/10/22 03/11/22 15:00 23:00 07:00 Intake Total 600 ml 480 ml 240 ml Balance 600 ml 480 ml 240 ml Current Medications: Meds: Current Medications Medications (Trade) Dose Ordered Sig/Valentino Route PRN Reason Start Time Stop Time Status Last Admin Dose Admin Acetaminophen (Tylenol) 650 mg PRN Q4HRS PRN PO MILD PAIN / TEMP > 100.3'F 02/24/22 13:30 03/10/22 09:12 Hydralazine HCl (Apresoline) 25 mg PRN QID PRN PO HYPERTENSION 02/24/22 13:30 Lorazepam (Ativan) 0.5 mg PRN Q6HRS PRN PO ANXIETY 02/24/22 13:30 03/04/22 18:36 Ondansetron HCl (Zofran Odt) 4 mg PRN Q4HRS PRN PO NAUSEA/VOMITING 02/24/22 13:30 Polyethylene Glycol (miraLAX) 17 gm PRN DAILY PRN PO 1ST CHOICE CONSTIPATION 02/24/22 13:30 Quetiapine Fumarate (SEROquel) 50 mg QHS PO 02/24/22 21:00 03/11/22 19:51 Quetiapine Fumarate (SEROquel) 100 mg DAILY PO 02/25/22 09:00 03/11/22 08:01 Sertraline HCl (Zoloft) 50 mg DAILY PO 02/25/22 09:00 02/25/22 17:01 DC 02/25/22 07:45 Temazepam (Restoril) 15 mg QHS PO 02/24/22 21:00 03/11/22 19:51 Atorvastatin Calcium (Lipitor) 80 mg DAILY PO 02/25/22 09:00 02/25/22 11:05 DC Glucosamine/ Chondroitin (Glucosamine-Chondroitin 500/400mg) 1 cap DAILY PO 02/25/22 09:00 03/11/22 08:01 Metoprolol Succinate (Toprol Xl) 100 mg DAILY PO 02/25/22 09:00 03/11/22 08:02 Multivitamins/ Calcium (Thera-M Plus) 1 tab DAILY PO 02/25/22 09:00 03/11/22 08:02 Acetaminophen (Tylenol) 650 mg PRN Q6HRS PRN PO MILD PAIN / TEMP > 100.3'F 02/24/22 13:45 Cancel Multi-Ingredient Ointment (Analgesic [place]) 1 marifer PRN QID PRN TP MUSCLE PAIN 02/24/22 13:45 Al Hydroxide/Mg Hydroxide (Mylanta Plus Xs) 15 ml PRN AFTMEALHC PRN PO DYSPEPSIA 02/24/22 13:45 Magnesium Hydroxide (Milk Of Magnesia) 2,400 mg PRN QHS PRN PO 2ND CHOICE CONSTIPATION 02/24/22 13:45 Atorvastatin Calcium (Lipitor) 80 mg HS PO 02/25/22 21:00 03/11/22 19:51 Sertraline HCl (Zoloft) 75 mg DAILY PO 02/26/22 09:00 03/01/22 20:19 DC 03/01/22 08:23 Divalproex Sodium (Depakote Sprinkles) 125 mg 0900,1700 PO 02/27/22 09:00 03/02/22 20:38 DC 03/02/22 16:04 Mirtazapine (Remeron) 7.5 mg QHS PO 02/27/22 21:00 03/11/22 19:51 Sertraline HCl (Zoloft) 100 mg DAILY PO 03/02/22 09:00 03/11/22 08:02 Divalproex Sodium (Depakote Sprinkles) 250 mg DAILY PO 03/03/22 09:00 UNV Divalproex Sodium (Depakote Sprinkles) 250 mg 0900 PO 03/03/22 09:00 03/11/22 08:02 Divalproex Sodium (Depakote Sprinkles) 125 mg 1700 PO 03/03/22 17:00 03/11/22 17:00 I have reviewed the current psychotropics carefully including drug interactions. Risk benefit ratio favors no change other than as noted in my dictated progress note. Diagnosis: Problems: (1) Impulse control disorder, unspecified (2) Anxiety disorder, unspecified (3) Dementia, vascular, with depression (4) Dementia, vascular, with delusions (5) Dementia in Alzheimer's disease with depression (6) Dementia in Alzheimer's disease with delusions (7) Dementia of the Alzheimer's type with early onset with behavioral disturbance (8) Major neurocognitive disorder NOAH SEE MD March 11, 2022 21:48
[2022-03-12 06:03] VITALS: BP 154/86
--- NOTE | 2022-03-12 06:24 | PDOC ---
Exam Note: Jimmy Note: This note is a late entry for 03/11/2022 covers elements not covered in my initial note. Subjective: The patient was seen individually in the evening on 03/11/2022, discussed and reviewed the chart with Samantha HAMPTON. The patient slept 6-1/2 hours previous night. He has been tinkering with the door knob and toilet last night. Nursing staff told him that the parts had not arrived and he seemed to calm down. Review of Systems: No CV, , pulmonary, eye, ENT system symptoms on review. Mental Status Exam: Patient is oriented to himself. Insight and judgment, rece nt and remote memory, attention and concentration, fund of knowledge is poor consistent with his diagnoses. Laboratory Data: Reviewed. Impression: Major neurocognitive disorder, Alzheimer, vascular with delusion, depression, behavioral disturbance. Anxiety disorder unspecified. Impulse control disorder unspecified. Plan: Continue current psychotropics unchanged. Reviewed drug interactions, risk-benefit ratio. Adjust as clinically indicated. Assessment: Vital Signs/I&O: Vital Signs Date Time Temp Pulse Resp B/P (MAP) Pulse Ox O2 Delivery O2 Flow Rate FiO2 03/12/22 06:03 97.2 53 18 154/86 (108) 94 Room Air I & O 03/11/22 03/11/22 03/12/22 15:00 23:00 07:00 Intake Total 840 ml 720 ml Balance 840 ml 720 ml Labs: Laboratory Tests Test 03/11/22 17:40 POC SARS CoV-2 Antigen Negative (NEGATIVE) Current Medications: I have reviewed the current psychotropics carefully including drug interactions. Risk benefit ratio favors no change other than as noted in my dictated progress note. Diagnosis: Problems: (1) Impulse control disorder, unspecified (2) Anxiety disorder, unspecified (3) Dementia, vascular, with depression (4) Dementia, vascular, with delusions (5) Dementia in Alzheimer's disease with depression (6) Dementia in Alzheimer's disease with delusions (7) Dementia of the Alzheimer's type with early onset with behavioral disturbance (8) Major neurocognitive disorder NOAH SEE MD March 12, 2022 06:24
[2022-03-12] MEDS: MULTIVITAMIN with MINERAL TABLET. PO SCH (08:30)
[2022-03-12] MEDS: METOPROLOL SUCC 24HR ER 50 MG TAB.ER.24H. PO SCH (08:30)
[2022-03-12] MEDS: DIVALPROEX 125 MG CAP.SPRINK PO SCH ×2 (08:30→17:00)
[2022-03-12] MEDS: SERTRALINE 50 MG TABLET. PO SCH (08:30)
[2022-03-12] MEDS: GLUCOSAMINE/CHOND 500/400MG CAPSULE PO SCH (08:30)
[2022-03-12] MEDS: QUEtiapine 100 MG TABLET. PO SCH (08:31)
[2022-03-12 16:12] VITALS: BP 106/72
[2022-03-12] MEDS: QUEtiapine 50 MG TABLET. PO SCH (20:02)
[2022-03-12] MEDS: ATORVASTATIN CALCIUM 20 MG TABLET PO SCH (20:02)
[2022-03-12] MEDS: TEMAZEPAM 15 MG CAPSULE PO SCH (20:02)
[2022-03-12] MEDS: MIRTAZAPINE 7.5 MG TABLET. PO SCH (20:02)
--- NOTE | 2022-03-12 21:35 | PDOC ---
Exam Note: Jimmy Note: Please also refer to the separate dictated note~for this date of service dictated separately.~Patient seen individually. Discussed the patient with Nursing staff reviewed the chart.~Reviewed interim history and current functioning. Reviewed vital signs,~Labs/ Radiology~and current medications noted below. Continue current treatment with the changes noted in the dictated addendum note Assessment: Vital Signs/I&O: Vital Signs Date Time Temp Pulse Resp B/P (MAP) Pulse Ox O2 Delivery O2 Flow Rate FiO2 03/12/22 16:12 97.8 67 16 106/72 (83) 94 Room Air I & O 03/11/22 03/11/22 03/12/22 15:00 23:00 07:00 Intake Total 840 ml 720 ml Balance 840 ml 720 ml Current Medications: Meds: Current Medications Medications (Trade) Dose Ordered Sig/Valentino Route PRN Reason Start Time Stop Time Status Last Admin Dose Admin Acetaminophen (Tylenol) 650 mg PRN Q4HRS PRN PO MILD PAIN / TEMP > 100.3'F 02/24/22 13:30 03/10/22 09:12 Hydralazine HCl (Apresoline) 25 mg PRN QID PRN PO HYPERTENSION 02/24/22 13:30 Lorazepam (Ativan) 0.5 mg PRN Q6HRS PRN PO ANXIETY 02/24/22 13:30 03/04/22 18:36 Ondansetron HCl (Zofran Odt) 4 mg PRN Q4HRS PRN PO NAUSEA/VOMITING 02/24/22 13:30 Polyethylene Glycol (miraLAX) 17 gm PRN DAILY PRN PO 1ST CHOICE CONSTIPATION 02/24/22 13:30 Quetiapine Fumarate (SEROquel) 50 mg QHS PO 02/24/22 21:00 03/12/22 20:02 Quetiapine Fumarate (SEROquel) 100 mg DAILY PO 02/25/22 09:00 03/12/22 08:31 Sertraline HCl (Zoloft) 50 mg DAILY PO 02/25/22 09:00 02/25/22 17:01 DC 02/25/22 07:45 Temazepam (Restoril) 15 mg QHS PO 02/24/22 21:00 03/12/22 20:02 Atorvastatin Calcium (Lipitor) 80 mg DAILY PO 02/25/22 09:00 02/25/22 11:05 DC Glucosamine/ Chondroitin (Glucosamine-Chondroitin 500/400mg) 1 cap DAILY PO 02/25/22 09:00 03/12/22 08:30 Metoprolol Succinate (Toprol Xl) 100 mg DAILY PO 02/25/22 09:00 03/12/22 08:30 Multivitamins/ Calcium (Thera-M Plus) 1 tab DAILY PO 02/25/22 09:00 03/12/22 08:30 Acetaminophen (Tylenol) 650 mg PRN Q6HRS PRN PO MILD PAIN / TEMP > 100.3'F 02/24/22 13:45 Cancel Multi-Ingredient Ointment (Analgesic [place]) 1 marifer PRN QID PRN TP MUSCLE PAIN 02/24/22 13:45 Al Hydroxide/Mg Hydroxide (Mylanta Plus Xs) 15 ml PRN AFTMEALHC PRN PO DYSPEPSIA 02/24/22 13:45 Magnesium Hydroxide (Milk Of Magnesia) 2,400 mg PRN QHS PRN PO 2ND CHOICE CONSTIPATION 02/24/22 13:45 Atorvastatin Calcium (Lipitor) 80 mg HS PO 02/25/22 21:00 03/12/22 20:02 Sertraline HCl (Zoloft) 75 mg DAILY PO 02/26/22 09:00 03/01/22 20:19 DC 03/01/22 08:23 Divalproex Sodium (Depakote Sprinkles) 125 mg 0900,1700 PO 02/27/22 09:00 03/02/22 20:38 DC 03/02/22 16:04 Mirtazapine (Remeron) 7.5 mg QHS PO 02/27/22 21:00 03/12/22 20:02 Sertraline HCl (Zoloft) 100 mg DAILY PO 03/02/22 09:00 03/12/22 08:30 Divalproex Sodium (Depakote Sprinkles) 250 mg DAILY PO 03/03/22 09:00 UNV Divalproex Sodium (Depakote Sprinkles) 250 mg 0900 PO 03/03/22 09:00 03/12/22 08:30 Divalproex Sodium (Depakote Sprinkles) 125 mg 1700 PO 03/03/22 17:00 03/12/22 17:00 I have reviewed the current psychotropics carefully including drug interactions. Risk benefit ratio favors no change other than as noted in my dictated progress note. 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
[2022-03-13 06:07] VITALS: BP 152/81
--- NOTE | 2022-03-13 06:35 | PDOC ---
Exam Note: Jimmy Note: This note is a late entry for 03/12/2022 covers elements not covered in my initial note. Subjective: The patient was seen individually in the evening on 03/12/2022, discussed and reviewed the chart with Kenisha HAMPTON. The patient slept 8-1/2 hours previous night. He remains confused but pleasant, smiling, not aggressive. He does redirect if he is checking the door locks and he is told that the spare parts are not available yet and they will be available tomorrow. He walks away then. Review of Systems: No CV, , pulmonary, eye, ENT system symptoms on review. Mental Status Exam: Patient is oriented to himself. Insight and judgment, recent and remote memory, attention and concentration, fund of knowledge is poor consistent with his diagnoses. Laboratory Data: Reviewed. Impression: Major neurocognitive disorder, Alzheimer, vascular with delusion, depression, behavioral disturbance. Anxiety disorder unspecified. Impulse control disorder unspecified. Plan: Continue current psychotropics unchanged. Reviewed drug interactions, risk-benefit ratio. Adjust as clinically indicated. Assessment: Vital Signs/I&O: Vital Signs Date Time Temp Pulse Resp B/P (MAP) Pulse Ox O2 Delivery O2 Flow Rate FiO2 03/13/22 06:07 97.5 76 20 152/81 (104) 96 03/12/22 16:12 Room Air I & O 03/12/22 03/12/22 03/13/22 15:00 23:00 07:00 Intake Total 600 ml 480 ml Balance 600 ml 480 ml Current Medications: I have reviewed the current psychotropics carefully including drug interactions. Risk benefit ratio favors no change other than as noted in my dictated progress note. Diagnosis: Problems: (1) Impulse control disorder, unspecified (2) Anxiety disorder, unspecified (3) Dementia, vascular, with depression (4) Dementia, vascular, with delusions (5) Dementia in Alzheimer's disease with depression (6) Dementia in Alzheimer's disease with delusions (7) Dementia of the Alzheimer's type with early onset with behavioral distu rbance (8) Major neurocognitive disorder NOAH SEE MD March 13, 2022 06:35
[2022-03-13 07:19] LABS: BASO % 0 % (0-3); EOS # 0.2 x10^3/uL (0.0-0.7); EOS % 3 % (0-3); HEMOGLOBIN 12.3 g/dL (13.0-17.5); LYMPH # 1.6 x10^3/uL (1.0-4.8); LYMPH % 20 % (24-48); MEAN CORPUSCULAR HEMOGLOBIN 33 pg (25-35); MEAN CORPUSCULAR HGB CONC 33 g/dL (31-37); MEAN CORPUSCULAR VOLUME 98 fL (79-100); MONO # 0.8 x10^3/uL (0.0-1.1); MONO % 10 % (0-9); NEUT # 5.6 x10^3uL (1.8-7.7); NEUT % 67 % (31-73); PLATELET COUNT 153 x10^3/uL (140-400); RED BLOOD COUNT 3.78 x10^6/uL (4.30-5.70); RED CELL DISTRIBUTION WIDTH 14.2 % (11.5-14.5); WHITE BLOOD COUNT 8.3 x10^3/uL (4.0-11.0)
[2022-03-13 07:50] LABS: ALBUMIN 3.5 g/dL (3.4-5.0); ALBUMIN/GLOBULIN RATIO 1.1 (1.0-1.7); CALCIUM 8.5 mg/dL (8.5-10.1); CREATININE 1.5 mg/dL (0.7-1.3); GFR 44.9; POTASSIUM 4.3 mmol/L (3.5-5.1); TOTAL BILIRUBIN 0.5 mg/dL (0.2-1.0); TOTAL PROTEIN 6.7 g/dL (6.4-8.2)
[2022-03-13] MEDS: DIVALPROEX 125 MG CAP.SPRINK PO SCH ×2 (08:59→17:26)
[2022-03-13] MEDS: QUEtiapine 100 MG TABLET. PO SCH (08:59)
[2022-03-13] MEDS: MULTIVITAMIN with MINERAL TABLET. PO SCH (08:59)
[2022-03-13] MEDS: METOPROLOL SUCC 24HR ER 50 MG TAB.ER.24H. PO SCH (09:00)
[2022-03-13] MEDS: GLUCOSAMINE/CHOND 500/400MG CAPSULE PO SCH (09:00)
[2022-03-13] MEDS: SERTRALINE 50 MG TABLET. PO SCH (09:00)
[2022-03-13 16:28] VITALS: BP 127/70
[2022-03-13] MEDS: ATORVASTATIN CALCIUM 20 MG TABLET PO SCH (20:19)
[2022-03-13] MEDS: QUEtiapine 50 MG TABLET. PO SCH (20:19)
[2022-03-13] MEDS: MIRTAZAPINE 7.5 MG TABLET. PO SCH (20:19)
[2022-03-13] MEDS: TEMAZEPAM 15 MG CAPSULE PO SCH (20:19)
--- NOTE | 2022-03-13 21:48 | PDOC ---
Exam Note: Jimmy Note: Please also refer to the separate dictated note~for this date of service dictated separately.~Patient seen individually. Discussed the patient with Nursing staff reviewed the chart.~Reviewed interim history and current functioning. Reviewed vital signs,~Labs/ Radiology~and current medications noted below. Continue current treatment with the changes noted in the dictated addendum note Assessment: Vital Signs/I&O: Vital Signs Date Time Temp Pulse Resp B/P (MAP) Pulse Ox O2 Delivery O2 Flow Rate FiO2 03/13/22 16:28 98.2 72 18 127/70 (89) 93 Room Air I & O 03/12/22 03/12/22 03/13/22 15:00 23:00 07:00 Intake Total 600 ml 480 ml Balance 600 ml 480 ml Labs: Laboratory Tests Test 03/13/22 06:48 White Blood Count 8.3 x10^3/uL (4.0-11.0) Red Blood Count 3.78 x10^6/uL (4.30-5.70) L Hemoglobin 12.3 g/dL (13.0-17.5) L Hematocrit 37.0 % (39.0-53.0) L Mean Corpuscular Volume 98 fL (79-100) Mean Corpuscular Hemoglobin 33 pg (25-35) Mean Corpuscular Hemoglobin Concent 33 g/dL (31-37) Red Cell Distribution Width 14.2 % (11.5-14.5) Platelet Count 153 x10^3/uL (140-400) Neutrophils (%) (Auto) 67 % (31-73) Lymphocytes (%) (Auto) 20 % (24-48) L Monocytes (%) (Auto) 10 % (0-9) H Eosinophils (%) (Auto) 3 % (0-3) Basophils (%) (Auto) 0 % (0-3) Neutrophils # (Auto) 5.6 x10^3uL (1.8-7.7) Lymphocytes # (Auto) 1.6 x10^3/uL (1.0-4.8) Monocytes # (Auto) 0.8 x10^3/uL (0.0-1.1) Eosinophils # (Auto) 0.2 x10^3/uL (0.0-0.7) Basophils # (Auto) 0.0 x10^3/uL (0.0-0.2) Sodium Level 147 mmol/L (136-145) H Potassium Level 4.3 mmol/L (3.5-5.1) Chloride Level 108 mmol/L (98-107) H Carbon Dioxide Level 31 mmol/L (21-32) Anion Gap 8 (6-14) Blood Urea Nitrogen 26 mg/dL (8-26) Creatinine 1.5 mg/dL (0.7-1.3) H Estimated GFR (Cockcroft-Gault) 44.9 BUN/Creatinine Ratio 17 (6-20) Glucose Level 85 mg/dL (70-99) Calcium Level 8.5 mg/dL (8.5-10.1) Total Bilirubin 0.5 mg/dL (0.2-1.0) Aspartate Amino Transferase (AST) 20 U/L (15-37) Alanine Aminotransferase (ALT) 34 U/L (16-63) Alkaline Phosphatase 102 U/L (46-116) Total Protein 6.7 g/dL (6.4-8.2) Albumin 3.5 g/dL (3.4-5.0) Albumin/Globulin Ratio 1.1 (1.0-1.7) Current Medications: Meds: Laboratory Tests Test 03/13/22 06:48 White Blood Count 8.3 x10^3/uL Red Blood Count 3.78 x10^6/uL Hemoglobin 12.3 g/dL Hematocrit 37.0 % Mean Corpuscular Volume 98 fL Mean Corpuscular Hemoglobin 33 pg Mean Corpuscular Hemoglobin Concent 33 g/dL Red Cell Distribution Width 14.2 % Platelet Count 153 x10^3/uL Neutrophils (%) (Auto) 67 % Lymphocytes (%) (Auto) 20 % Monocytes (%) (Auto) 10 % Eosinophils (%) (Auto) 3 % Basophils (%) (Auto) 0 % Neutrophils # (Auto) 5.6 x10^3uL Lymphocytes # (Auto) 1.6 x10^3/uL Monocytes # (Auto) 0.8 x10^3/uL Eosinophils # (Auto) 0.2 x10^3/uL Basophils # (Auto) 0.0 x10^3/uL Sodium Level 147 mmol/L Potassium Level 4.3 mmol/L Chloride Level 108 mmol/L Carbon Dioxide Level 31 mmol/L Anion Gap 8 Blood Urea Nitrogen 26 mg/dL Creatinine 1.5 mg/dL Estimated GFR (Cockcroft-Gault) 44.9 BUN/Creatinine Ratio 17 Glucose Level 85 mg/dL Calcium Level 8.5 mg/dL Total Bilirubin 0.5 mg/dL Aspartate Amino Transf (AST/SGOT) 20 U/L Alanine Aminotransferase (ALT/SGPT) 34 U/L Alkaline Phosphatase 102 U/L Total Protein 6.7 g/dL Albumin 3.5 g/dL Albumin/Globulin Ratio 1.1 Current Medications Medications (Trade) Dose Ordered Sig/Valentino Route PRN Reason Start Time Stop Time Status Last Admin Dose Admin Acetaminophen (Tylenol) 650 mg PRN Q4HRS PRN PO MILD PAIN / TEMP > 100.3'F 02/24/22 13:30 03/10/22 09:12 Hydralazine HCl (Apresoline) 25 mg PRN QID PRN PO HYPERTENSION 02/24/22 13:30 Lorazepam (Ativan) 0.5 mg PRN Q6HRS PRN PO ANXIETY 02/24/22 13:30 03/04/22 18:36 Ondansetron HCl (Zofran Odt) 4 mg PRN Q4HRS PRN PO NAUSEA/VOMITING 02/24/22 13:30 Polyethylene Glycol (miraLAX) 17 gm PRN DAILY PRN PO 1ST CHOICE CONSTIPATION 02/24/22 13:30 Quetiapine Fumarate (SEROquel) 50 mg QHS PO 02/24/22 21:00 03/13/22 20:19 Quetiapine Fumarate (SEROquel) 100 mg DAILY PO 02/25/22 09:00 03/13/22 08:59 Sertraline HCl (Zoloft) 50 mg DAILY PO 02/25/22 09:00 02/25/22 17:01 DC 02/25/22 07:45 Temazepam (Restoril) 15 mg QHS PO 02/24/22 21:00 03/13/22 20:19 Atorvastatin Calcium (Lipitor) 80 mg DAILY PO 02/25/22 09:00 02/25/22 11:05 DC Glucosamine/ Chondroitin (Glucosamine-Chondroitin 500/400mg) 1 cap DAILY PO 02/25/22 09:00 03/13/22 09:00 Metoprolol Succinate (Toprol Xl) 100 mg DAILY PO 02/25/22 09:00 03/13/22 09:00 Multivitamins/ Calcium (Thera-M Plus) 1 tab DAILY PO 02/25/22 09:00 03/13/22 08:59 Acetaminophen (Tylenol) 650 mg PRN Q6HRS PRN PO MILD PAIN / TEMP > 100.3'F 02/24/22 13:45 Cancel Multi-Ingredient Ointment (Analgesic [employer]) 1 marifer PRN QID PRN TP MUSCLE PAIN 02/24/22 13:45 Al Hydroxide/Mg Hydroxide (Mylanta Plus Xs) 15 ml PRN AFTMEALHC PRN PO DYSPEPSIA 02/24/22 13:45 Magnesium Hydroxide (Milk Of Magnesia) 2,400 mg PRN QHS PRN PO 2ND CHOICE CONSTIPATION 02/24/22 13:45 Atorvastatin Calcium (Lipitor) 80 mg HS PO 02/25/22 21:00 03/13/22 20:19 Sertraline HCl (Zoloft) 75 mg DAILY PO 02/26/22 09:00 03/01/22 20:19 DC 03/01/22 08:23 Divalproex Sodium (Depakote Sprinkles) 125 mg 0900,1700 PO 02/27/22 09:00 03/02/22 20:38 DC 03/02/22 16:04 Mirtazapine (Remeron) 7.5 mg QHS PO 02/27/22 21:00 03/13/22 20:19 Sertraline HCl (Zoloft) 100 mg DAILY PO 03/02/22 09:00 03/13/22 09:00 Divalproex Sodium (Depakote Sprinkles) 250 mg DAILY PO 03/03/22 09:00 UNV Divalproex Sodium (Depakote Sprinkles) 250 mg 0900 PO 03/03/22 09:00 03/13/22 08:59 Divalproex Sodium (Depakote Sprinkles) 125 mg 1700 PO 03/03/22 17:00 03/13/22 17:26 I have reviewed the current psychotropics carefully including drug interactions. Risk benefit ratio favors no change other than as noted in my dictated progress note. 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
[2022-03-14 05:59] VITALS: BP 120/69
--- NOTE | 2022-03-14 08:01 | PDOC ---
Exam Note: Jimmy Note: This note is a late entry for 03/13/2022 covers elements not covered in my initial note. Subjective: The patient was reviewed at treatment team meeting individually in the morning on 03/13/2022 with Diann Corea, Trista Copeland, and Karena Rollins (healthcare social worker), Anju, activity therapy, and Heike HAMPTON, discussed and reviewed the chart. The patient slept 7-1/2 hours previous night. Average sleep 7 hours. Appetite 75%. His Jesusita attended the treatment team meeting. We discussed patients diagnoses, progress, psychotropics, discharge and after care plans. He remains confused, compliant with medications. Also discussed with Carmelita HAMPTON in the evening. I met with him in the evening at length. Review of Systems: No CV, , pulmonary, eye, ENT system symptoms on review. Mental Status Exam: Patient is oriented to himself. Insight and judgment, recent and remote memory, attention and concentration, fund of knowledge is poor consistent with his diagnoses. As I met with him in the evening, he was quite pleasant, confused, verbal and interactive. Laboratory Data: Reviewed. Impression: Major neurocognitive disorder, Alzheimer, vascular with delusion, depression, behavioral disturbance. Anxiety disorder unspecified. Impulse control disorder unspecified. Plan: Continue current psychotropics unchanged. Reviewed drug interactions, risk-benefit ratio. Adjust as clinically indicated. Assessment: Vital Signs/I&O: Vital Signs Date Time Temp Pulse Resp B/P (MAP) Pulse Ox O2 Delivery O2 Flow Rate FiO2 03/14/22 05:59 98.0 66 18 120/69 (86) 97 Room Air I & O 03/13/22 03/13/22 03/14/22 15:00 23:00 07:00 Intake Total 720 ml 480 ml Balance 720 ml 480 ml Current Medications: I have reviewed the current psychotropics carefully including drug interactions. Risk benefit ratio favors no change other than as noted in my dictated progress note. Diagnosis: Problems: (1) Impulse control disorder, unspecified (2) Anxiety disorder, unspecified (3) Dementia, vascular, with depression (4) Dementia, vascular, with delusions (5) Dementia in Alzheimer's disease with depression (6) Dementia in Alzheimer's disease with delusions (7) Dementia of the Alzheimer's type with early onset with behavioral disturbance (8) Major neurocognitive disorder NOAH SEE MD March 14, 2022 08:01
[2022-03-14] MEDS: METOPROLOL SUCC 24HR ER 50 MG TAB.ER.24H. PO SCH (08:21)
[2022-03-14] MEDS: SERTRALINE 50 MG TABLET. PO SCH (08:21)
[2022-03-14] MEDS: GLUCOSAMINE/CHOND 500/400MG CAPSULE PO SCH (08:21)
[2022-03-14] MEDS: MULTIVITAMIN with MINERAL TABLET. PO SCH (08:22)
[2022-03-14] MEDS: LORazepam 0.5 MG TABLET PO PRN (08:22)
[2022-03-14] MEDS: QUEtiapine 100 MG TABLET. PO SCH (08:22)
[2022-03-14] MEDS: DIVALPROEX 125 MG CAP.SPRINK PO SCH ×2 (08:22→17:24)
[2022-03-14 15:00] VITALS: BP 126/73
[2022-03-14 16:00] VITALS: BP 126/73
[2022-03-14] MEDS: TEMAZEPAM 15 MG CAPSULE PO SCH (20:40)
[2022-03-14] MEDS: QUEtiapine 50 MG TABLET. PO SCH (20:40)
[2022-03-14] MEDS: ATORVASTATIN CALCIUM 20 MG TABLET PO SCH (20:40)
[2022-03-14] MEDS: MIRTAZAPINE 7.5 MG TABLET. PO SCH (20:40)
--- NOTE | 2022-03-14 21:41 | PDOC ---
Exam Note: Jimmy Note: Please also refer to the separate dictated note~for this date of service dictated separately.~Patient seen individually. Discussed the patient with Nursing staff reviewed the chart.~Reviewed interim history and current functioning. Reviewed vital signs,~Labs/ Radiology~and current medications noted below. Continue current treatment with the changes noted in the dictated addendum note Assessment: Vital Signs/I&O: Vital Signs Date Time Temp Pulse Resp B/P (MAP) Pulse Ox O2 Delivery O2 Flow Rate FiO2 03/14/22 16:00 98.9 76 18 126/73 (90) 93 Room Air I & O 03/13/22 03/13/22 03/14/22 15:00 23:00 07:00 Intake Total 720 ml 480 ml Balance 720 ml 480 ml Current Medications: Meds: Current Medications Medications (Trade) Dose Ordered Sig/Valentino Route PRN Reason Start Time Stop Time Status Last Admin Dose Admin Acetaminophen (Tylenol) 650 mg PRN Q4HRS PRN PO MILD PAIN / TEMP > 100.3'F 02/24/22 13:30 03/10/22 09:12 Hydralazine HCl (Apresoline) 25 mg PRN QID PRN PO HYPERTENSION 02/24/22 13:30 Lorazepam (Ativan) 0.5 mg PRN Q6HRS PRN PO ANXIETY 02/24/22 13:30 03/14/22 08:22 Ondansetron HCl (Zofran Odt) 4 mg PRN Q4HRS PRN PO NAUSEA/VOMITING 02/24/22 13:30 Polyethylene Glycol (miraLAX) 17 gm PRN DAILY PRN PO 1ST CHOICE CONSTIPATION 02/24/22 13:30 Quetiapine Fumarate (SEROquel) 50 mg QHS PO 02/24/22 21:00 03/14/22 20:40 Quetiapine Fumarate (SEROquel) 100 mg DAILY PO 02/25/22 09:00 03/14/22 08:22 Sertraline HCl (Zoloft) 50 mg DAILY PO 02/25/22 09:00 02/25/22 17:01 DC 02/25/22 07:45 Temazepam (Restoril) 15 mg QHS PO 02/24/22 21:00 03/14/22 20:40 Atorvastatin Calcium (Lipitor) 80 mg DAILY PO 02/25/22 09:00 02/25/22 11:05 DC Glucosamine/ Chondroitin (Glucosamine-Chondroitin 500/400mg) 1 cap DAILY PO 02/25/22 09:00 03/14/22 08:21 Metoprolol Succinate (Toprol Xl) 100 mg DAILY PO 02/25/22 09:00 03/14/22 08:21 Multivitamins/ Calcium (Thera-M Plus) 1 tab DAILY PO 02/25/22 09:00 03/14/22 08:22 Acetaminophen (Tylenol) 650 mg PRN Q6HRS PRN PO MILD PAIN / TEMP > 100.3'F 02/24/22 13:45 Cancel Multi-Ingredient Ointment (Analgesic [place]) 1 marifer PRN QID PRN TP MUSCLE PAIN 02/24/22 13:45 Al Hydroxide/Mg Hydroxide (Mylanta Plus Xs) 15 ml PRN AFTMEALHC PRN PO DYSPEPSIA 02/24/22 13:45 Magnesium Hydroxide (Milk Of Magnesia) 2,400 mg PRN QHS PRN PO 2ND CHOICE CONSTIPATION 02/24/22 13:45 Atorvastatin Calcium (Lipitor) 80 mg HS PO 02/25/22 21:00 03/14/22 20:40 Sertraline HCl (Zoloft) 75 mg DAILY PO 02/26/22 09:00 03/01/22 20:19 DC 03/01/22 08:23 Divalproex Sodium (Depakote Sprinkles) 125 mg 0900,1700 PO 02/27/22 09:00 03/02/22 20:38 DC 03/02/22 16:04 Mirtazapine (Remeron) 7.5 mg QHS PO 02/27/22 21:00 03/14/22 20:40 Sertraline HCl (Zoloft) 100 mg DAILY PO 03/02/22 09:00 03/14/22 08:21 Divalproex Sodium (Depakote Sprinkles) 250 mg DAILY PO 03/03/22 09:00 UNV Divalproex Sodium (Depakote Sprinkles) 250 mg 0900 PO 03/03/22 09:00 03/14/22 08:22 Divalproex Sodium (Depakote Sprinkles) 125 mg 1700 PO 03/03/22 17:00 03/14/22 17:24 I have reviewed the current psychotropics carefully including drug interactions. Risk benefit ratio favors no change other than as noted in my dictated progress note. Diagnosis: Problems: (1) Impulse control disorder, unspecified (2) Anxiety disorder, unspecified (3) Dementia, vascular, with depression (4) Dementia, vascular, with delusions (5) Dementia in Alzheimer's disease with depression (6) Dementia in Alzheimer's disease with delusions (7) Dementia of the Alzheimer's type with early onset with behavioral disturbance (8) Major neurocognitive disorder NOAH SEE MD March 14, 2022 21:41
[2022-03-15 06:17] VITALS: BP 134/59
[2022-03-15] MEDS: METOPROLOL SUCC 24HR ER 50 MG TAB.ER.24H. PO SCH (07:46)
[2022-03-15] MEDS: QUEtiapine 100 MG TABLET. PO SCH (07:47)
[2022-03-15] MEDS: SERTRALINE 50 MG TABLET. PO SCH (07:47)
[2022-03-15] MEDS: MULTIVITAMIN with MINERAL TABLET. PO SCH (07:47)
[2022-03-15] MEDS: GLUCOSAMINE/CHOND 500/400MG CAPSULE PO SCH (07:47)
[2022-03-15] MEDS: DIVALPROEX 125 MG CAP.SPRINK PO SCH ×2 (07:48→17:00)
[2022-03-15 15:00] VITALS: BP 122/63
[2022-03-15] MEDS: QUEtiapine 50 MG TABLET. PO SCH (20:44)
[2022-03-15] MEDS: ATORVASTATIN CALCIUM 20 MG TABLET PO SCH (20:44)
[2022-03-15] MEDS: MIRTAZAPINE 7.5 MG TABLET. PO SCH (20:44)
[2022-03-15] MEDS: TEMAZEPAM 15 MG CAPSULE PO SCH (20:45)
--- NOTE | 2022-03-15 22:07 | PDOC ---
Exam Note: Jimmy Note: This note is a late entry for 03/14/2022 covers elements not covered in my initial note. Subjective: The patient was seen individually on 03/14/2022, discussed and reviewed the chart with Heike HAMPTON. The patient slept 7-3/4 hours previous night. I met with him in the dayroom. Review of Systems: No CV, , pulmonary, eye, ENT system symptoms on review. Mental Status Exam: Patient is oriented to himself. He is pleasant, verbal, interactive, confused has a smile as I met with him, oblivious of his surroundings. Insight and judgment, recent and remote memory, attention and concentration, fund of knowledge is poor consistent with his diagnoses. Laboratory Data: Reviewed. Impression: Major neurocognitive disorder, Alzheimer, vascular with delusion, depression, behavioral disturbance. Anxiety disorder unspecified. Impulse control disorder unspecified. Plan: Continue current psychotropics unchanged. Reviewed drug interactions, risk-benefit ratio. Adjust as clinically indicated. Assessment: Vital Signs/I&O: Vital Signs Date Time Temp Pulse Resp B/P (MAP) Pulse Ox O2 Delivery O2 Flow Rate FiO2 03/15/22 15:00 97.4 87 18 122/63 (82) 96 Room Air I & O 03/14/22 03/14/22 03/15/22 15:00 23:00 07:00 Intake Total 720 ml 480 ml Balance 720 ml 480 ml Current Medications: I have reviewed the current psychotropics carefully including drug interactions. Risk benefit ratio favors no change other than as noted in my dictated progress note. Diagnosis: Problems: (1) Impulse control disorder, unspecified (2) Anxiety disorder, unspecified (3) Dementia, vascular, with depression (4) Dementia, vascular, with delusions (5) Dementia in Alzheimer's disease with depression (6) Dementia in Alzheimer's disease with delusions (7) Dementia of the Alzheimer's type with early onset with behavioral dist urbance (8) Major neurocognitive disorder NOAH SEE MD March 15, 2022 22:07
--- NOTE | 2022-03-15 22:07 | PDOC ---
Exam Note: Jimmy Note: Please also refer to the separate dictated note~for this date of service dictated separately.~Patient seen individually. Discussed the patient with Nursing staff reviewed the chart.~Reviewed interim history and current functioning. Reviewed vital signs,~Labs/ Radiology~and current medications noted below. Continue current treatment with the changes noted in the dictated addendum note Assessment: Vital Signs/I&O: Vital Signs Date Time Temp Pulse Resp B/P (MAP) Pulse Ox O2 Delivery O2 Flow Rate FiO2 03/15/22 15:00 97.4 87 18 122/63 (82) 96 Room Air I & O 03/14/22 03/14/22 03/15/22 15:00 23:00 07:00 Intake Total 720 ml 480 ml Balance 720 ml 480 ml Current Medications: Meds: Current Medications Medications (Trade) Dose Ordered Sig/Valentino Route PRN Reason Start Time Stop Time Status Last Admin Dose Admin Acetaminophen (Tylenol) 650 mg PRN Q4HRS PRN PO MILD PAIN / TEMP > 100.3'F 02/24/22 13:30 03/10/22 09:12 Hydralazine HCl (Apresoline) 25 mg PRN QID PRN PO HYPERTENSION 02/24/22 13:30 Lorazepam (Ativan) 0.5 mg PRN Q6HRS PRN PO ANXIETY 02/24/22 13:30 03/14/22 08:22 Ondansetron HCl (Zofran Odt) 4 mg PRN Q4HRS PRN PO NAUSEA/VOMITING 02/24/22 13:30 Polyethylene Glycol (miraLAX) 17 gm PRN DAILY PRN PO 1ST CHOICE CONSTIPATION 02/24/22 13:30 Quetiapine Fumarate (SEROquel) 50 mg QHS PO 02/24/22 21:00 03/15/22 20:44 Quetiapine Fumarate (SEROquel) 100 mg DAILY PO 02/25/22 09:00 03/15/22 07:47 Sertraline HCl (Zoloft) 50 mg DAILY PO 02/25/22 09:00 02/25/22 17:01 DC 02/25/22 07:45 Temazepam (Restoril) 15 mg QHS PO 02/24/22 21:00 03/15/22 20:45 Atorvastatin Calcium (Lipitor) 80 mg DAILY PO 02/25/22 09:00 02/25/22 11:05 DC Glucosamine/ Chondroitin (Glucosamine-Chondroitin 500/400mg) 1 cap DAILY PO 02/25/22 09:00 03/15/22 07:47 Metoprolol Succinate (Toprol Xl) 100 mg DAILY PO 02/25/22 09:00 03/15/22 07:46 Multivitamins/ Calcium (Thera-M Plus) 1 tab DAILY PO 02/25/22 09:00 03/15/22 07:47 Acetaminophen (Tylenol) 650 mg PRN Q6HRS PRN PO MILD PAIN / TEMP > 100.3'F 02/24/22 13:45 Cancel Multi-Ingredient Ointment (Analgesic [place]) 1 marifer PRN QID PRN TP MUSCLE PAIN 02/24/22 13:45 Al Hydroxide/Mg Hydroxide (Mylanta Plus Xs) 15 ml PRN AFTMEALHC PRN PO DYSPEPSIA 02/24/22 13:45 Magnesium Hydroxide (Milk Of Magnesia) 2,400 mg PRN QHS PRN PO 2ND CHOICE CONSTIPATION 02/24/22 13:45 Atorvastatin Calcium (Lipitor) 80 mg HS PO 02/25/22 21:00 03/15/22 20:44 Sertraline HCl (Zoloft) 75 mg DAILY PO 02/26/22 09:00 03/01/22 20:19 DC 03/01/22 08:23 Divalproex Sodium (Depakote Sprinkles) 125 mg 0900,1700 PO 02/27/22 09:00 03/02/22 20:38 DC 03/02/22 16:04 Mirtazapine (Remeron) 7.5 mg QHS PO 02/27/22 21:00 03/15/22 20:44 Sertraline HCl (Zoloft) 100 mg DAILY PO 03/02/22 09:00 03/15/22 07:47 Divalproex Sodium (Depakote Sprinkles) 250 mg DAILY PO 03/03/22 09:00 UNV Divalproex Sodium (Depakote Sprinkles) 250 mg 0900 PO 03/03/22 09:00 03/15/22 07:48 Divalproex Sodium (Depakote Sprinkles) 125 mg 1700 PO 03/03/22 17:00 03/15/22 17:00 I have reviewed the current psychotropics carefully including drug interactions. Risk benefit ratio favors no change other than as noted in my dictated progress note. Diagnosis: Problems: (1) Impulse control disorder, unspecified (2) Anxiety disorder, unspecified (3) Dementia, vascular, with depression (4) Dementia, vascular, with delusions (5) Dementia in Alzheimer's disease with depression (6) Dementia in Alzheimer's disease with delusions (7) Dementia of the Alzheimer's type with early onset with behavioral disturbance (8) Major neurocognitive disorder NOAH SEE MD March 15, 2022 22:07
[2022-03-16 06:09] VITALS: BP 138/82
[2022-03-16] MEDS: DIVALPROEX 125 MG CAP.SPRINK PO SCH ×2 (07:40→16:01)
[2022-03-16] MEDS: GLUCOSAMINE/CHOND 500/400MG CAPSULE PO SCH (07:41)
[2022-03-16] MEDS: QUEtiapine 100 MG TABLET. PO SCH (07:41)
[2022-03-16] MEDS: METOPROLOL SUCC 24HR ER 50 MG TAB.ER.24H. PO SCH (07:41)
[2022-03-16] MEDS: SERTRALINE 50 MG TABLET. PO SCH (07:41)
[2022-03-16] MEDS: MULTIVITAMIN with MINERAL TABLET. PO SCH (07:41)
[2022-03-16 16:02] VITALS: BP 110/59
[2022-03-16] MEDS: QUEtiapine 50 MG TABLET. PO SCH (20:26)
[2022-03-16] MEDS: MIRTAZAPINE 7.5 MG TABLET. PO SCH (20:26)
[2022-03-16] MEDS: ATORVASTATIN CALCIUM 20 MG TABLET PO SCH (20:26)
[2022-03-16] MEDS: TEMAZEPAM 15 MG CAPSULE PO SCH (20:27)
--- NOTE | 2022-03-16 21:53 | PDOC ---
Exam Note: Jimmy Note: Please also refer to the separate dictated note~for this date of service dictated separately.~Patient seen individually. Discussed the patient with Nursing staff reviewed the chart.~Reviewed interim history and current functioning. Reviewed vital signs,~Labs/ Radiology~and current medications noted below. Continue current treatment with the changes noted in the dictated addendum note Assessment: Vital Signs/I&O: Vital Signs Date Time Temp Pulse Resp B/P (MAP) Pulse Ox O2 Delivery O2 Flow Rate FiO2 03/16/22 16:02 98.0 72 16 110/59 (76) 97 Room Air I & O 03/15/22 03/15/22 03/16/22 15:00 23:00 07:00 Intake Total 360 ml 480 ml Balance 360 ml 480 ml Current Medications: Meds: Current Medications Medications (Trade) Dose Ordered Sig/Valentino Route PRN Reason Start Time Stop Time Status Last Admin Dose Admin Acetaminophen (Tylenol) 650 mg PRN Q4HRS PRN PO MILD PAIN / TEMP > 100.3'F 02/24/22 13:30 03/10/22 09:12 Hydralazine HCl (Apresoline) 25 mg PRN QID PRN PO HYPERTENSION 02/24/22 13:30 Lorazepam (Ativan) 0.5 mg PRN Q6HRS PRN PO ANXIETY 02/24/22 13:30 03/14/22 08:22 Ondansetron HCl (Zofran Odt) 4 mg PRN Q4HRS PRN PO NAUSEA/VOMITING 02/24/22 13:30 Polyethylene Glycol (miraLAX) 17 gm PRN DAILY PRN PO 1ST CHOICE CONSTIPATION 02/24/22 13:30 Quetiapine Fumarate (SEROquel) 50 mg QHS PO 02/24/22 21:00 03/16/22 20:26 Quetiapine Fumarate (SEROquel) 100 mg DAILY PO 02/25/22 09:00 03/16/22 07:41 Sertraline HCl (Zoloft) 50 mg DAILY PO 02/25/22 09:00 02/25/22 17:01 DC 02/25/22 07:45 Temazepam (Restoril) 15 mg QHS PO 02/24/22 21:00 03/16/22 20:27 Atorvastatin Calcium (Lipitor) 80 mg DAILY PO 02/25/22 09:00 02/25/22 11:05 DC Glucosamine/ Chondroitin (Glucosamine-Chondroitin 500/400mg) 1 cap DAILY PO 02/25/22 09:00 03/16/22 07:41 Metoprolol Succinate (Toprol Xl) 100 mg DAILY PO 02/25/22 09:00 03/16/22 07:41 Multivitamins/ Calcium (Thera-M Plus) 1 tab DAILY PO 02/25/22 09:00 03/16/22 07:41 Acetaminophen (Tylenol) 650 mg PRN Q6HRS PRN PO MILD PAIN / TEMP > 100.3'F 02/24/22 13:45 Cancel Multi-Ingredient Ointment (Analgesic [place]) 1 marifer PRN QID PRN TP MUSCLE PAIN 02/24/22 13:45 Al Hydroxide/Mg Hydroxide (Mylanta Plus Xs) 15 ml PRN AFTMEALHC PRN PO DYSPEPSIA 02/24/22 13:45 Magnesium Hydroxide (Milk Of Magnesia) 2,400 mg PRN QHS PRN PO 2ND CHOICE CONSTIPATION 02/24/22 13:45 Atorvastatin Calcium (Lipitor) 80 mg HS PO 02/25/22 21:00 03/16/22 20:26 Sertraline HCl (Zoloft) 75 mg DAILY PO 02/26/22 09:00 03/01/22 20:19 DC 03/01/22 08:23 Divalproex Sodium (Depakote Sprinkles) 125 mg 0900,1700 PO 02/27/22 09:00 03/02/22 20:38 DC 03/02/22 16:04 Mirtazapine (Remeron) 7.5 mg QHS PO 02/27/22 21:00 03/16/22 20:26 Sertraline HCl (Zoloft) 100 mg DAILY PO 03/02/22 09:00 03/16/22 07:41 Divalproex Sodium (Depakote Sprinkles) 250 mg DAILY PO 03/03/22 09:00 UNV Divalproex Sodium (Depakote Sprinkles) 250 mg 0900 PO 03/03/22 09:00 03/16/22 07:40 Divalproex Sodium (Depakote Sprinkles) 125 mg 1700 PO 03/03/22 17:00 03/16/22 16:01 I have reviewed the current psychotropics carefully including drug interactions. Risk benefit ratio favors no change other than as noted in my dictated progress note. 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
[2022-03-17 06:03] VITALS: BP 147/82
--- NOTE | 2022-03-17 08:30 | PDOC ---
Exam Note: Jimmy Note: This note is a late entry for 03/15/2022 covers elements not covered in my initial note. Subjective: The patient was seen individually on 03/15/2022, discussed and reviewed the chart with Samantha HAMPTON. The patient slept 6-3/4 hours previous night. He is confused. I met with him in the dayroom. Fluids are being pushed. Review of Systems: No CV, , pulmonary, eye, ENT system symptoms on review. Mental Status Exam: Patient is oriented to himself. Insight and judgment, recent and remote memory, attention and concentration, fund of knowledge is poor consistent with his diagnoses. Laboratory Data: Reviewed. Impression: Major neurocognitive disorder, Alzheimer, vascular with delusion, depression, behavioral disturbance. Anxiety disorder unspecified. Impulse control disorder unspecified. Plan: Continue current psychotropics unchanged. Reviewed drug interactions, risk-benefit ratio. Adjust as clinically indicated. Assessment: Vital Signs/I&O: Vital Signs Date Time Temp Pulse Resp B/P (MAP) Pulse Ox O2 Delivery O2 Flow Rate FiO2 03/17/22 06:03 97.5 66 20 147/82 (103) 95 Room Air I & O 03/16/22 03/16/22 03/17/22 14:59 22:59 06:59 Intake Total 360 ml 240 ml Balance 360 ml 240 ml Current Medications: I have reviewed the current psychotropics carefully including drug interactions. Risk benefit ratio favors no change other than as noted in my dictated progress note. 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
--- NOTE | 2022-03-17 09:02 | PDOC ---
Exam Note: Jimmy Note: This note is a late entry for 03/16/2022 covers elements not covered in my initial note. Subjective: The patient was seen individually on 03/16/2022, discussed and reviewed the chart with Yaneth HAMPTON. The patient slept 7 hours previous night. He has been wandering, redirects. He is compliant with medications. He is pleasant. I met with him in the dayroom. He was wearing an extra jacket even though it is a warm day. He said he felt cold. Review of Systems: No CV, , pulmonary, eye, ENT system symptoms on review. Mental Status Exam: Patient is oriented to himself. Insight and judgment, recent and remote memory, attention and concentration, fund of knowledge is poor consistent with his diagnoses. Laboratory Data: Reviewed. Impression: Major neurocognitive disorder, Alzheimer, vascular with delusion, depression, behavioral disturbance. Anxiety disorder unspecified. Impulse control disorder unspecified. Plan: Continue current psychotropics unchanged. Reviewed drug interactions, risk-benefit ratio. Adjust as clinically indicated. Assessment: Vital Signs/I&O: Vital Signs Date Time Temp Pulse Resp B/P (MAP) Pulse Ox O2 Delivery O2 Flow Rate FiO2 03/17/22 06:03 97.5 66 20 147/82 (103) 95 Room Air I & O 03/16/22 03/16/22 03/17/22 14:59 22:59 06:59 Intake Total 360 ml 240 ml Balance 360 ml 240 ml Current Medications: I have reviewed the current psychotropics carefully including drug interactions. Risk benefit ratio favors no change other than as noted in my dictated progress note. 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
[2022-03-17] MEDS: DIVALPROEX 125 MG CAP.SPRINK PO SCH ×2 (09:26→17:21)
[2022-03-17] MEDS: MULTIVITAMIN with MINERAL TABLET. PO SCH (09:26)
[2022-03-17] MEDS: GLUCOSAMINE/CHOND 500/400MG CAPSULE PO SCH (09:26)
[2022-03-17] MEDS: SERTRALINE 50 MG TABLET. PO SCH (09:26)
[2022-03-17] MEDS: QUEtiapine 100 MG TABLET. PO SCH (09:26)
[2022-03-17] MEDS: METOPROLOL SUCC 24HR ER 50 MG TAB.ER.24H. PO SCH (09:26)
[2022-03-17] MEDS: ATORVASTATIN CALCIUM 20 MG TABLET PO SCH (20:38)
[2022-03-17] MEDS: QUEtiapine 50 MG TABLET. PO SCH (20:38)
[2022-03-17] MEDS: MIRTAZAPINE 7.5 MG TABLET. PO SCH (20:38)
[2022-03-17] MEDS: TEMAZEPAM 15 MG CAPSULE PO SCH (20:38)
--- NOTE | 2022-03-17 21:31 | PDOC ---
Exam Note: Jimmy Note: Please also refer to the separate dictated note~for this date of service dictated separately.~Patient seen individually. Discussed the patient with Nursing staff reviewed the chart.~Reviewed interim history and current functioning. Reviewed vital signs,~Labs/ Radiology~and current medications noted below. Continue current treatment with the changes noted in the dictated addendum note Assessment: Vital Signs/I&O: Vital Signs Date Time Temp Pulse Resp B/P (MAP) Pulse Ox O2 Delivery O2 Flow Rate FiO2 03/17/22 09:26 66 147/82 03/17/22 06:03 97.5 20 95 Room Air I & O 03/16/22 03/16/22 03/17/22 15:00 23:00 07:00 Intake Total 360 ml 240 ml Balance 360 ml 240 ml Current Medications: Meds: Current Medications Medications (Trade) Dose Ordered Sig/Valentino Route PRN Reason Start Time Stop Time Status Last Admin Dose Admin Acetaminophen (Tylenol) 650 mg PRN Q4HRS PRN PO MILD PAIN / TEMP > 100.3'F 02/24/22 13:30 03/10/22 09:12 Hydralazine HCl (Apresoline) 25 mg PRN QID PRN PO HYPERTENSION 02/24/22 13:30 Lorazepam (Ativan) 0.5 mg PRN Q6HRS PRN PO ANXIETY 02/24/22 13:30 03/14/22 08:22 Ondansetron HCl (Zofran Odt) 4 mg PRN Q4HRS PRN PO NAUSEA/VOMITING 02/24/22 13:30 Polyethylene Glycol (miraLAX) 17 gm PRN DAILY PRN PO 1ST CHOICE CONSTIPATION 02/24/22 13:30 Quetiapine Fumarate (SEROquel) 50 mg QHS PO 02/24/22 21:00 03/17/22 20:38 Quetiapine Fumarate (SEROquel) 100 mg DAILY PO 02/25/22 09:00 03/17/22 09:26 Sertraline HCl (Zoloft) 50 mg DAILY PO 02/25/22 09:00 02/25/22 17:01 DC 02/25/22 07:45 Temazepam (Restoril) 15 mg QHS PO 02/24/22 21:00 03/17/22 20:38 Atorvastatin Calcium (Lipitor) 80 mg DAILY PO 02/25/22 09:00 02/25/22 11:05 DC Glucosamine/ Chondroitin (Glucosamine-Chondroitin 500/400mg) 1 cap DAILY PO 02/25/22 09:00 03/17/22 09:26 Metoprolol Succinate (Toprol Xl) 100 mg DAILY PO 02/25/22 09:00 03/17/22 09:26 Multivitamins/ Calcium (Thera-M Plus) 1 tab DAILY PO 02/25/22 09:00 03/17/22 09:26 Acetaminophen (Tylenol) 650 mg PRN Q6HRS PRN PO MILD PAIN / TEMP > 100.3'F 02/24/22 13:45 Cancel Multi-Ingredient Ointment (Analgesic [place]) 1 marifer PRN QID PRN TP MUSCLE PAIN 02/24/22 13:45 Al Hydroxide/Mg Hydroxide (Mylanta Plus Xs) 15 ml PRN AFTMEALHC PRN PO DYSPEPSIA 02/24/22 13:45 Magnesium Hydroxide (Milk Of Magnesia) 2,400 mg PRN QHS PRN PO 2ND CHOICE CONSTIPATION 02/24/22 13:45 Atorvastatin Calcium (Lipitor) 80 mg HS PO 02/25/22 21:00 03/17/22 20:38 Sertraline HCl (Zoloft) 75 mg DAILY PO 02/26/22 09:00 03/01/22 20:19 DC 03/01/22 08:23 Divalproex Sodium (Depakote Sprinkles) 125 mg 0900,1700 PO 02/27/22 09:00 03/02/22 20:38 DC 03/02/22 16:04 Mirtazapine (Remeron) 7.5 mg QHS PO 02/27/22 21:00 03/17/22 20:38 Sertraline HCl (Zoloft) 100 mg DAILY PO 03/02/22 09:00 03/17/22 09:26 Divalproex Sodium (Depakote Sprinkles) 250 mg DAILY PO 03/03/22 09:00 UNV Divalproex Sodium (Depakote Sprinkles) 250 mg 0900 PO 03/03/22 09:00 03/17/22 09:26 Divalproex Sodium (Depakote Sprinkles) 125 mg 1700 PO 4/25/22 17:00 03/17/22 17:21 I have reviewed the current psychotropics carefully including drug interactions. Risk benefit ratio favors no change other than as noted in my dictated progress note. 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
[2022-03-17 23:26] VITALS: BP 117/72
[2022-03-18 06:17] VITALS: BP 130/68
[2022-03-18] MEDS: GLUCOSAMINE/CHOND 500/400MG CAPSULE PO SCH (08:27)
[2022-03-18] MEDS: MULTIVITAMIN with MINERAL TABLET. PO SCH (08:27)
[2022-03-18] MEDS: QUEtiapine 100 MG TABLET. PO SCH (08:27)
[2022-03-18] MEDS: METOPROLOL SUCC 24HR ER 50 MG TAB.ER.24H. PO SCH (08:27)
[2022-03-18] MEDS: SERTRALINE 50 MG TABLET. PO SCH (08:27)
[2022-03-18] MEDS: DIVALPROEX 125 MG CAP.SPRINK PO SCH ×2 (08:28→17:10)
--- NOTE | 2022-03-18 08:44 | PDOC ---
Exam Note: Jimmy Note: This note is a late entry for 03/17/2022 covers elements not covered in my initial note. Subjective: The patient was seen individually on 03/17/2022, discussed and reviewed the chart with Derrek HAMPTON. The patient slept 6-1/2 hours previous night. He remains confused, calmer. I met with him in the hallway. He has been wandering. Review of Systems: No CV, , pulmonary, eye, ENT system symptoms on review. Mental Status Exam: Patient is oriented to himself. Insight and judgment, recent and remote memory, attention and concentration, fund of knowledge is poor consistent with his diagnoses. Laboratory Data: Reviewed. Impression: Major neurocognitive disorder, Alzheimer, vascular with delusion, depression, behavioral disturbance. Anxiety disorder unspecified. Impulse control disorder unspecified. Plan: Continue current psychotropics unchanged. Reviewed drug interactions, risk-benefit ratio. Adjust as clinically indicated. Assessment: Vital Signs/I&O: Vital Signs Date Time Temp Pulse Resp B/P (MAP) Pulse Ox O2 Delivery O2 Flow Rate FiO2 03/18/22 08:27 72 130/68 03/18/22 06:17 96.7 16 92 Room Air I & O 03/17/22 03/17/22 03/18/22 15:00 23:00 07:00 Intake Total 720 ml 360 ml 150 ml Balance 720 ml 360 ml 150 ml Current Medications: I have reviewed the current psychotropics carefully including drug interactions. Risk benefit ratio favors no change other than as noted in my dictated progress note. 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
[2022-03-18 16:23] VITALS: BP 142/87
[2022-03-18] MEDS: MIRTAZAPINE 7.5 MG TABLET. PO SCH (20:32)
[2022-03-18] MEDS: TEMAZEPAM 15 MG CAPSULE PO SCH (20:32)
[2022-03-18] MEDS: ATORVASTATIN CALCIUM 20 MG TABLET PO SCH (20:32)
[2022-03-18] MEDS: QUEtiapine 50 MG TABLET. PO SCH (20:32)
--- NOTE | 2022-03-18 21:35 | PDOC ---
Exam Note: Jimmy Note: Please also refer to the separate dictated note~for this date of service dictated separately.~Patient seen individually. Discussed the patient with Nursing staff reviewed the chart.~Reviewed interim history and current functioning. Reviewed vital signs,~Labs/ Radiology~and current medications noted below. Continue current treatment with the changes noted in the dictated addendum note Assessment: Vital Signs/I&O: Vital Signs Date Time Temp Pulse Resp B/P (MAP) Pulse Ox O2 Delivery O2 Flow Rate FiO2 03/18/22 16:23 97.8 67 18 142/87 (105) 92 Room Air I & O 03/17/22 03/17/22 03/18/22 15:00 23:00 07:00 Intake Total 720 ml 360 ml 150 ml Balance 720 ml 360 ml 150 ml Labs: Laboratory Tests Test 03/18/22 09:25 POC SARS CoV-2 Antigen Negative (NEGATIVE) Current Medications: Meds: Laboratory Tests Test 03/18/22 09:25 POC SARS CoV-2 Antigen Negative Current Medications Medications (Trade) Dose Ordered Sig/Valentino Route PRN Reason Start Time Stop Time Status Last Admin Dose Admin Acetaminophen (Tylenol) 650 mg PRN Q4HRS PRN PO MILD PAIN / TEMP > 100.3'F 02/24/22 13:30 03/10/22 09:12 Hydralazine HCl (Apresoline) 25 mg PRN QID PRN PO HYPERTENSION 02/24/22 13:30 Lorazepam (Ativan) 0.5 mg PRN Q6HRS PRN PO ANXIETY 02/24/22 13:30 03/14/22 08:22 Ondansetron HCl (Zofran Odt) 4 mg PRN Q4HRS PRN PO NAUSEA/VOMITING 02/24/22 13:30 Polyethylene Glycol (miraLAX) 17 gm PRN DAILY PRN PO 1ST CHOICE CONSTIPATION 02/24/22 13:30 Quetiapine Fumarate (SEROquel) 50 mg QHS PO 02/24/22 21:00 03/18/22 20:32 Quetiapine Fumarate (SEROquel) 100 mg DAILY PO 02/25/22 09:00 03/18/22 08:27 Sertraline HCl (Zoloft) 50 mg DAILY PO 02/25/22 09:00 02/25/22 17:01 DC 02/25/22 07:45 Temazepam (Restoril) 15 mg QHS PO 02/24/22 21:00 03/18/22 20:32 Atorvastatin Calcium (Lipitor) 80 mg DAILY PO 02/25/22 09:00 02/25/22 11:05 DC Glucosamine/ Chondroitin (Glucosamine-Chondroitin 500/400mg) 1 cap DAILY PO 02/25/22 09:00 03/18/22 08:27 Metoprolol Succinate (Toprol Xl) 100 mg DAILY PO 02/25/22 09:00 03/18/22 08:27 Multivitamins/ Calcium (Thera-M Plus) 1 tab DAILY PO 02/25/22 09:00 03/18/22 08:27 Acetaminophen (Tylenol) 650 mg PRN Q6HRS PRN PO MILD PAIN / TEMP > 100.3'F 02/24/22 13:45 Cancel Multi-Ingredient Ointment (Analgesic [place]) 1 marifer PRN QID PRN TP MUSCLE PAIN 02/24/22 13:45 Al Hydroxide/Mg Hydroxide (Mylanta Plus Xs) 15 ml PRN AFTMEALHC PRN PO DYSPEPSIA 02/24/22 13:45 Magnesium Hydroxide (Milk Of Magnesia) 2,400 mg PRN QHS PRN PO 2ND CHOICE CONSTIPATION 02/24/22 13:45 Atorvastatin Calcium (Lipitor) 80 mg HS PO 02/25/22 21:00 03/18/22 20:32 Sertraline HCl (Zoloft) 75 mg DAILY PO 02/26/22 09:00 03/01/22 20:19 DC 03/01/22 08:23 Divalproex Sodium (Depakote Sprinkles) 125 mg 0900,1700 PO 02/27/22 09:00 03/02/22 20:38 DC 03/02/22 16:04 Mirtazapine (Remeron) 7.5 mg QHS PO 02/27/22 21:00 03/18/22 20:32 Sertraline HCl (Zoloft) 100 mg DAILY PO 03/02/22 09:00 03/18/22 08:27 Divalproex Sodium (Depakote Sprinkles) 250 mg DAILY PO 03/03/22 09:00 UNV Divalproex Sodium (Depakote Sprinkles) 250 mg 0900 PO 03/03/22 09:00 03/18/22 08:28 Divalproex Sodium (Depakote Sprinkles) 125 mg 1700 PO 03/03/22 17:00 03/18/22 17:10 I have reviewed the current psychotropics carefully including drug interactions. Risk benefit ratio favors no change other than as noted in my dictated progress note. 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
[2022-03-19 06:14] VITALS: BP 145/76
[2022-03-19] MEDS: QUEtiapine 100 MG TABLET. PO SCH (08:04)
[2022-03-19] MEDS: GLUCOSAMINE/CHOND 500/400MG CAPSULE PO SCH (08:04)
[2022-03-19] MEDS: SERTRALINE 50 MG TABLET. PO SCH (08:04)
[2022-03-19] MEDS: METOPROLOL SUCC 24HR ER 50 MG TAB.ER.24H. PO SCH (08:05)
[2022-03-19] MEDS: MULTIVITAMIN with MINERAL TABLET. PO SCH (08:05)
[2022-03-19] MEDS: DIVALPROEX 125 MG CAP.SPRINK PO SCH ×2 (08:05→16:33)
--- NOTE | 2022-03-19 08:56 | PDOC ---
Exam Note: Jimmy Note: This note is a late entry for 03/18/2022 covers elements not covered in my initial note. Subjective: The patient was seen individually on 03/18/2022, discussed and reviewed the chart with Derrek HAMPTON. There has been Covid exposure on the unit and the unit has been placed on quarantine as determined by Infectious Disease Department. The patient slept 6-3/4 hours previous night. He remains confused, was seen in the dining room. He has been pleasant, cooperative, redirects, walks into others rooms but not aggressive. Review of Systems: No CV, , pulmonary, eye, ENT system symptoms on review. Mental Status Exam: Patient is oriented to himself. Insight and judgment, recent and remote memory, attention and concentration, fund of knowledge is poor consistent with his diagnoses. Laboratory Data: Reviewed. Impression: Major neurocognitive disorder, Alzheimer, vascular with delusion, depression, behavioral disturbance. Anxiety disorder unspecified. Impulse control disorder unspecified. Plan: Continue current psychotropics unchanged. Reviewed drug interactions, risk-benefit ratio. Adjust as clinically indicated. Assessment: Vital Signs/I&O: Vital Signs Date Time Temp Pulse Resp B/P (MAP) Pulse Ox O2 Delivery O2 Flow Rate FiO2 03/19/22 08:05 66 145/76 03/19/22 06:14 97.6 20 96 Room Air I & O 03/18/22 03/18/22 03/19/22 15:00 23:00 07:00 Intake Total 600 ml 480 ml Balance 600 ml 480 ml Labs: Laboratory Tests Test 03/18/22 09:25 POC SARS CoV-2 Antigen Negative (NEGATIVE) Current Medications: I have reviewed the current psychotropics carefully including drug interactions. Risk benefit ratio favors no change other than as noted in my dictated progress note. Diagnosis: Problems: (1) Impulse control disorder, unspecified (2) Anxiety disorder, unspecified (3) Dementia, vascular, with depression (4) Dementia, vascular, with delusions (5) Dementia in Alzheimer's disease with depression (6) Dementia in Alzheimer's disease with delusions (7) Dementia of the Alzheimer's type with early onset with behavioral disturbance (8) Major neurocognitive disorder NOAH SEE MD March 19, 2022 08:56
[2022-03-19 16:51] VITALS: BP 105/64
[2022-03-19] MEDS: QUEtiapine 50 MG TABLET. PO SCH (20:38)
[2022-03-19] MEDS: TEMAZEPAM 15 MG CAPSULE PO SCH (20:39)
[2022-03-19] MEDS: MIRTAZAPINE 7.5 MG TABLET. PO SCH (20:39)
[2022-03-19] MEDS: ATORVASTATIN CALCIUM 20 MG TABLET PO SCH (20:39)
--- NOTE | 2022-03-19 21:57 | PDOC ---
Exam Note: Jimmy Note: Please also refer to the separate dictated note~for this date of service dictated separately.~Patient seen individually. Discussed the patient with Nursing staff reviewed the chart.~Reviewed interim history and current functioning. Reviewed vital signs,~Labs/ Radiology~and current medications noted below. Continue current treatment with the changes noted in the dictated addendum note Assessment: Vital Signs/I&O: Vital Signs Date Time Temp Pulse Resp B/P (MAP) Pulse Ox O2 Delivery O2 Flow Rate FiO2 03/19/22 16:51 98.4 92 19 105/64 (78) 95 03/19/22 06:14 Room Air I & O 03/18/22 03/18/22 03/19/22 15:00 23:00 07:00 Intake Total 600 ml 480 ml Balance 600 ml 480 ml Current Medications: Meds: Current Medications Medications (Trade) Dose Ordered Sig/Valentino Route PRN Reason Start Time Stop Time Status Last Admin Dose Admin Acetaminophen (Tylenol) 650 mg PRN Q4HRS PRN PO MILD PAIN / TEMP > 100.3'F 02/24/22 13:30 03/10/22 09:12 Hydralazine HCl (Apresoline) 25 mg PRN QID PRN PO HYPERTENSION 02/24/22 13:30 Lorazepam (Ativan) 0.5 mg PRN Q6HRS PRN PO ANXIETY 02/24/22 13:30 03/14/22 08:22 Ondansetron HCl (Zofran Odt) 4 mg PRN Q4HRS PRN PO NAUSEA/VOMITING 02/24/22 13:30 Polyethylene Glycol (miraLAX) 17 gm PRN DAILY PRN PO 1ST CHOICE CONSTIPATION 02/24/22 13:30 Quetiapine Fumarate (SEROquel) 50 mg QHS PO 02/24/22 21:00 03/19/22 20:38 Quetiapine Fumarate (SEROquel) 100 mg DAILY PO 02/25/22 09:00 03/19/22 08:04 Sertraline HCl (Zoloft) 50 mg DAILY PO 02/25/22 09:00 02/25/22 17:01 DC 02/25/22 07:45 Temazepam (Restoril) 15 mg QHS PO 02/24/22 21:00 03/19/22 20:39 Atorvastatin Calcium (Lipitor) 80 mg DAILY PO 02/25/22 09:00 02/25/22 11:05 DC Glucosamine/ Chondroitin (Glucosamine-Chondroitin 500/400mg) 1 cap DAILY PO 02/25/22 09:00 03/19/22 08:04 Metoprolol Succinate (Toprol Xl) 100 mg DAILY PO 02/25/22 09:00 03/19/22 08:05 Multivitamins/ Calcium (Thera-M Plus) 1 tab DAILY PO 02/25/22 09:00 03/19/22 08:05 Acetaminophen (Tylenol) 650 mg PRN Q6HRS PRN PO MILD PAIN / TEMP > 100.3'F 02/24/22 13:45 Cancel Multi-Ingredient Ointment (Analgesic [place]) 1 marifer PRN QID PRN TP MUSCLE PAIN 02/24/22 13:45 Al Hydroxide/Mg Hydroxide (Mylanta Plus Xs) 15 ml PRN AFTMEALHC PRN PO DYSPEPSIA 02/24/22 13:45 Magnesium Hydroxide (Milk Of Magnesia) 2,400 mg PRN QHS PRN PO 2ND CHOICE CONSTIPATION 02/24/22 13:45 Atorvastatin Calcium (Lipitor) 80 mg HS PO 02/25/22 21:00 03/19/22 20:39 Sertraline HCl (Zoloft) 75 mg DAILY PO 02/26/22 09:00 03/01/22 20:19 DC 03/01/22 08:23 Divalproex Sodium (Depakote Sprinkles) 125 mg 0900,1700 PO 02/27/22 09:00 03/02/22 20:38 DC 03/02/22 16:04 Mirtazapine (Remeron) 7.5 mg QHS PO 02/27/22 21:00 03/19/22 20:39 Sertraline HCl (Zoloft) 100 mg DAILY PO 03/02/22 09:00 03/19/22 08:04 Divalproex Sodium (Depakote Sprinkles) 250 mg DAILY PO 03/03/22 09:00 UNV Divalproex Sodium (Depakote Sprinkles) 250 mg 0900 PO 03/03/22 09:00 03/19/22 08:05 Divalproex Sodium (Depakote Sprinkles) 125 mg 1700 PO 03/03/22 17:00 03/19/22 16:33 I have reviewed the current psychotropics carefully including drug interactions. Risk benefit ratio favors no change other than as noted in my dictated progress note. Diagnosis: Problems: (1) Impulse control disorder, unspecified (2) Anxiety disorder, unspecified (3) Dementia, vascular, with depression (4) Dementia, vascular, with delusions (5) Dementia in Alzheimer's disease with depression (6) Dementia in Alzheimer's disease with delusions (7) Dementia of the Alzheimer's type with early onset with behavioral disturbance (8) Major neurocognitive disorder NOAH SEE MD March 19, 2022 21:57
[2022-03-20 06:23] VITALS: BP 145/78
[2022-03-20 06:25] LABS: BASO % 0 % (0-3); EOS # 0.2 x10^3/uL (0.0-0.7); EOS % 3 % (0-3); HEMATOCRIT 33.1 % (39.0-53.0); HEMOGLOBIN 10.9 g/dL (13.0-17.5); LYMPH # 1.3 x10^3/uL (1.0-4.8); LYMPH % 19 % (24-48); MEAN CORPUSCULAR HEMOGLOBIN 32 pg (25-35); MEAN CORPUSCULAR HGB CONC 33 g/dL (31-37); MEAN CORPUSCULAR VOLUME 98 fL (79-100); MONO # 0.7 x10^3/uL (0.0-1.1); MONO % 10 % (0-9); NEUT # 4.7 x10^3uL (1.8-7.7); NEUT % 67 % (31-73); PLATELET COUNT 147 x10^3/uL (140-400); RED BLOOD COUNT 3.38 x10^6/uL (4.30-5.70)
[2022-03-20 06:41] LABS: ALBUMIN/GLOBULIN RATIO 0.9 (1.0-1.7); CALCIUM 8.7 mg/dL (8.5-10.1); CREATININE 1.4 mg/dL (0.7-1.3); GFR 48.6; POTASSIUM 4.3 mmol/L (3.5-5.1); TOTAL BILIRUBIN 0.5 mg/dL (0.2-1.0); TOTAL PROTEIN 6.3 g/dL (6.4-8.2)
[2022-03-20] MEDS: DIVALPROEX 125 MG CAP.SPRINK PO SCH ×2 (07:59→16:25)
[2022-03-20] MEDS: QUEtiapine 100 MG TABLET. PO SCH (07:59)
[2022-03-20] MEDS: GLUCOSAMINE/CHOND 500/400MG CAPSULE PO SCH (08:00)
[2022-03-20] MEDS: METOPROLOL SUCC 24HR ER 50 MG TAB.ER.24H. PO SCH (08:00)
[2022-03-20] MEDS: MULTIVITAMIN with MINERAL TABLET. PO SCH (08:00)
[2022-03-20] MEDS: SERTRALINE 50 MG TABLET. PO SCH (08:00)
--- NOTE | 2022-03-20 08:38 | PDOC ---
Exam Note: Jimmy Note: This note is a late entry for 03/19/2022 covers elements not covered in my initial note. Subjective: The patient was seen individually on 03/19/2022, discussed and reviewed the chart with Jada HAMPTON. There has been Covid exposure on the unit and the unit has been placed on quarantine as determined by Infectious Disease Department. The patient slept 7-1/2 hours previous night. He remains confused. I met with him in the dining room. Review of Systems: No CV, , pulmonary, eye, ENT system symptoms on review. Mental Status Exam: Patient is oriented to himself. He is pleasant, cooperative, not agitated or aggressive. Insight and judgment, recent and remote memory, attention and concentration, fund of knowledge is poor consistent with his diagnoses. Laboratory Data: Reviewed. Impression: Major neurocognitive disorder, Alzheimer, vascular with delusion, depression, behavioral disturbance. Anxiety disorder unspecified. Impulse c ontrol disorder unspecified. Plan: Continue current psychotropics unchanged. Reviewed drug interactions, risk-benefit ratio. Adjust as clinically indicated. Assessment: Vital Signs/I&O: Vital Signs Date Time Temp Pulse Resp B/P (MAP) Pulse Ox O2 Delivery O2 Flow Rate FiO2 03/20/22 08:00 68 145/78 03/20/22 06:23 97.8 18 96 Room Air I & O 03/19/22 03/19/22 03/20/22 15:00 23:00 07:00 Intake Total 240 ml 360 ml Balance 240 ml 360 ml Labs: Laboratory Tests Test 03/20/22 06:03 White Blood Count 7.0 x10^3/uL (4.0-11.0) Red Blood Count 3.38 x10^6/uL (4.30-5.70) L Hemoglobin 10.9 g/dL (13.0-17.5) L Hematocrit 33.1 % (39.0-53.0) L Mean Corpuscular Volume 98 fL (79-100) Mean Corpuscular Hemoglobin 32 pg (25-35) Mean Corpuscular Hemoglobin Concent 33 g/dL (31-37) Red Cell Distribution Width 14.0 % (11.5-14.5) Platelet Count 147 x10^3/uL (140-400) Neutrophils (%) (Auto) 67 % (31-73) Lymphocytes (%) (Auto) 19 % (24-48) L Monocytes (%) (Auto) 10 % (0-9) H Eosinophils (%) (Auto) 3 % (0-3) Basophils (%) (Auto) 0 % (0-3) Neutrophils # (Auto) 4.7 x10^3uL (1.8-7.7) Lymphocytes # (Auto) 1.3 x10^3/uL (1.0-4.8) Monocytes # (Auto) 0.7 x10^3/uL (0.0-1.1) Eosinophils # (Auto) 0.2 x10^3/uL (0.0-0.7) Basophils # (Auto) 0.0 x10^3/uL (0.0-0.2) Sodium Level 142 mmol/L (136-145) Potassium Level 4.3 mmol/L (3.5-5.1) Chloride Level 106 mmol/L (98-107) Carbon Dioxide Level 30 mmol/L (21-32) Anion Gap 6 (6-14) Blood Urea Nitrogen 28 mg/dL (8-26) H Creatinine 1.4 mg/dL (0.7-1.3) H Estimated GFR (Cockcroft-Gault) 48.6 BUN/Creatinine Ratio 20 (6-20) Glucose Level 89 mg/dL (70-99) Calcium Level 8.7 mg/dL (8.5-10.1) Total Bilirubin 0.5 mg/dL (0.2-1.0) Aspartate Amino Transferase (AST) 24 U/L (15-37) Alanine Aminotransferase (ALT) 46 U/L (16-63) Alkaline Phosphatase 91 U/L (46-116) Total Protein 6.3 g/dL (6.4-8.2) L Albumin 3.0 g/dL (3.4-5.0) L Albumin/Globulin Ratio 0.9 (1.0-1.7) L Current Medications: I have reviewed the current psychotropics carefully including drug interactions. Risk benefit ratio favors no change other than as noted in my dictated progress note. Diagnosis: Problems: (1) Impulse control disorder, unspecified (2) Anxiety disorder, unspecified (3) Dementia, vascular, with depression (4) Dementia, vascular, with delusions (5) Dementia in Alzheimer's disease with depression (6) Dementia in Alzheimer's disease with delusions (7) Dementia of the Alzheimer's type with early onset with behavioral disturbance (8) Major neurocognitive disorder NOAH SEE MD March 20, 2022 08:38
[2022-03-20 16:46] VITALS: BP 115/70
[2022-03-20] MEDS: ATORVASTATIN CALCIUM 20 MG TABLET PO SCH (20:24)
[2022-03-20] MEDS: QUEtiapine 50 MG TABLET. PO SCH (20:24)
[2022-03-20] MEDS: MIRTAZAPINE 7.5 MG TABLET. PO SCH (20:24)
[2022-03-20] MEDS: TEMAZEPAM 15 MG CAPSULE PO SCH (20:24)
--- NOTE | 2022-03-20 21:06 | PDOC ---
Exam Note: Jimmy Note: Please also refer to the separate dictated note~for this date of service dictated separately.~Patient seen individually. Discussed the patient with Nursing staff reviewed the chart.~Reviewed interim history and current functioning. Reviewed vital signs,~Labs/ Radiology~and current medications noted below. Continue current treatment with the changes noted in the dictated addendum note Assessment: Vital Signs/I&O: Vital Signs Date Time Temp Pulse Resp B/P (MAP) Pulse Ox O2 Delivery O2 Flow Rate FiO2 03/20/22 16:46 98.6 84 16 115/70 (85) 100 03/20/22 06:23 Room Air I & O 03/19/22 03/19/22 03/20/22 15:00 23:00 07:00 Intake Total 240 ml 360 ml Balance 240 ml 360 ml Labs: Laboratory Tests Test 03/20/22 06:03 White Blood Count 7.0 x10^3/uL (4.0-11.0) Red Blood Count 3.38 x10^6/uL (4.30-5.70) L Hemoglobin 10.9 g/dL (13.0-17.5) L Hematocrit 33.1 % (39.0-53.0) L Mean Corpuscular Volume 98 fL (79-100) Mean Corpuscular Hemoglobin 32 pg (25-35) Mean Corpuscular Hemoglobin Concent 33 g/dL (31-37) Red Cell Distribution Width 14.0 % (11.5-14.5) Platelet Count 147 x10^3/uL (140-400) Neutrophils (%) (Auto) 67 % (31-73) Lymphocytes (%) (Auto) 19 % (24-48) L Monocytes (%) (Auto) 10 % (0-9) H Eosinophils (%) (Auto) 3 % (0-3) Basophils (%) (Auto) 0 % (0-3) Neutrophils # (Auto) 4.7 x10^3uL (1.8-7.7) Lymphocytes # (Auto) 1.3 x10^3/uL (1.0-4.8) Monocytes # (Auto) 0.7 x10^3/uL (0.0-1.1) Eosinophils # (Auto) 0.2 x10^3/uL (0.0-0.7) Basophils # (Auto) 0.0 x10^3/uL (0.0-0.2) Sodium Level 142 mmol/L (136-145) Potassium Level 4.3 mmol/L (3.5-5.1) Chloride Level 106 mmol/L (98-107) Carbon Dioxide Level 30 mmol/L (21-32) Anion Gap 6 (6-14) Blood Urea Nitrogen 28 mg/dL (8-26) H Creatinine 1.4 mg/dL (0.7-1.3) H Estimated GFR (Cockcroft-Gault) 48.6 BUN/Creatinine Ratio 20 (6-20) Glucose Level 89 mg/dL (70-99) Calcium Level 8.7 mg/dL (8.5-10.1) Total Bilirubin 0.5 mg/dL (0.2-1.0) Aspartate Amino Transferase (AST) 24 U/L (15-37) Alanine Aminotransferase (ALT) 46 U/L (16-63) Alkaline Phosphatase 91 U/L (46-116) Total Protein 6.3 g/dL (6.4-8.2) L Albumin 3.0 g/dL (3.4-5.0) L Albumin/Globulin Ratio 0.9 (1.0-1.7) L Current Medications: Meds: Laboratory Tests Test 03/20/22 06:03 White Blood Count 7.0 x10^3/uL Red Blood Count 3.38 x10^6/uL Hemoglobin 10.9 g/dL Hematocrit 33.1 % Mean Corpuscular Volume 98 fL Mean Corpuscular Hemoglobin 32 pg Mean Corpuscular Hemoglobin Concent 33 g/dL Red Cell Distribution Width 14.0 % Platelet Count 147 x10^3/uL Neutrophils (%) (Auto) 67 % Lymphocytes (%) (Auto) 19 % Monocytes (%) (Auto) 10 % Eosinophils (%) (Auto) 3 % Basophils (%) (Auto) 0 % Neutrophils # (Auto) 4.7 x10^3uL Lymphocytes # (Auto) 1.3 x10^3/uL Monocytes # (Auto) 0.7 x10^3/uL Eosinophils # (Auto) 0.2 x10^3/uL Basophils # (Auto) 0.0 x10^3/uL Sodium Level 142 mmol/L Potassium Level 4.3 mmol/L Chloride Level 106 mmol/L Carbon Dioxide Level 30 mmol/L Anion Gap 6 Blood Urea Nitrogen 28 mg/dL Creatinine 1.4 mg/dL Estimated GFR (Cockcroft-Gault) 48.6 BUN/Creatinine Ratio 20 Glucose Level 89 mg/dL Calcium Level 8.7 mg/dL Total Bilirubin 0.5 mg/dL Aspartate Amino Transf (AST/SGOT) 24 U/L Alanine Aminotransferase (ALT/SGPT) 46 U/L Alkaline Phosphatase 91 U/L Total Protein 6.3 g/dL Albumin 3.0 g/dL Albumin/Globulin Ratio 0.9 Current Medications Medications (Trade) Dose Ordered Sig/Valentino Route PRN Reason Start Time Stop Time Status Last Admin Dose Admin Acetaminophen (Tylenol) 650 mg PRN Q4HRS PRN PO MILD PAIN / TEMP > 100.3'F 02/24/22 13:30 03/10/22 09:12 Hydralazine HCl (Apresoline) 25 mg PRN QID PRN PO HYPERTENSION 02/24/22 13:30 Lorazepam (Ativan) 0.5 mg PRN Q6HRS PRN PO ANXIETY 02/24/22 13:30 03/14/22 08:22 Ondansetron HCl (Zofran Odt) 4 mg PRN Q4HRS PRN PO NAUSEA/VOMITING 02/24/22 13:30 Polyethylene Glycol (miraLAX) 17 gm PRN DAILY PRN PO 1ST CHOICE CONSTIPATION 02/24/22 13:30 Quetiapine Fumarate (SEROquel) 50 mg QHS PO 02/24/22 21:00 03/20/22 20:24 Quetiapine Fumarate (SEROquel) 100 mg DAILY PO 02/25/22 09:00 03/20/22 07:59 Sertraline HCl (Zoloft) 50 mg DAILY PO 02/25/22 09:00 02/25/22 17:01 DC 02/25/22 07:45 Temazepam (Restoril) 15 mg QHS PO 02/24/22 21:00 03/20/22 20:24 Atorvastatin Calcium (Lipitor) 80 mg DAILY PO 02/25/22 09:00 02/25/22 11:05 DC Glucosamine/ Chondroitin (Glucosamine-Chondroitin 500/400mg) 1 cap DAILY PO 02/25/22 09:00 03/20/22 08:00 Metoprolol Succinate (Toprol Xl) 100 mg DAILY PO 02/25/22 09:00 03/20/22 08:00 Multivitamins/ Calcium (Thera-M Plus) 1 tab DAILY PO 02/25/22 09:00 03/20/22 08:00 Acetaminophen (Tylenol) 650 mg PRN Q6HRS PRN PO MILD PAIN / TEMP > 100.3'F 02/24/22 13:45 Cancel Multi-Ingredient Ointment (Analgesic [place]) 1 marifer PRN QID PRN TP MUSCLE PAIN 02/24/22 13:45 Al Hydroxide/Mg Hydroxide (Mylanta Plus Xs) 15 ml PRN AFTMEALHC PRN PO DYSPEPSIA 02/24/22 13:45 Magnesium Hydroxide (Milk Of Magnesia) 2,400 mg PRN QHS PRN PO 2ND CHOICE CONSTIPATION 02/24/22 13:45 Atorvastatin Calcium (Lipitor) 80 mg HS PO 02/25/22 21:00 03/20/22 20:24 Sertraline HCl (Zoloft) 75 mg DAILY PO 02/26/22 09:00 03/01/22 20:19 DC 03/01/22 08:23 Divalproex Sodium (Depakote Sprinkles) 125 mg 0900,1700 PO 02/27/22 09:00 03/02/22 20:38 DC 03/02/22 16:04 Mirtazapine (Remeron) 7.5 mg QHS PO 02/27/22 21:00 03/20/22 20:24 Sertraline HCl (Zoloft) 100 mg DAILY PO 03/02/22 09:00 03/20/22 08:00 Divalproex Sodium (Depakote Sprinkles) 250 mg DAILY PO 03/03/22 09:00 UNV Divalproex Sodium (Depakote Sprinkles) 250 mg 0900 PO 03/03/22 09:00 03/20/22 07:59 Divalproex Sodium (Depakote Sprinkles) 125 mg 1700 PO 03/03/22 17:00 03/20/22 16:25 I have reviewed the current psychotropics carefully including drug interactions. Risk benefit ratio favors no change other than as noted in my dictated progress note. Diagnosis: Problems: (1) Impulse control disorder, unspecified (2) Anxiety disorder, unspecified (3) Dementia, vascular, with depression (4) Dementia, vascular, with delusions (5) Dementia in Alzheimer's disease with depression (6) Dementia in Alzheimer's disease with delusions (7) Dementia of the Alzheimer's type with early onset with behavioral disturbance (8) Major neurocognitive disorder NOAH SEE MD March 20, 2022 21:06
[2022-03-21 06:33] VITALS: BP 146/74
[2022-03-21] MEDS: METOPROLOL SUCC 24HR ER 50 MG TAB.ER.24H. PO SCH (08:21)
[2022-03-21] MEDS: GLUCOSAMINE/CHOND 500/400MG CAPSULE PO SCH (08:21)
[2022-03-21] MEDS: MULTIVITAMIN with MINERAL TABLET. PO SCH (08:21)
[2022-03-21] MEDS: SERTRALINE 50 MG TABLET. PO SCH (08:21)
[2022-03-21] MEDS: QUEtiapine 100 MG TABLET. PO SCH (08:21)
[2022-03-21] MEDS: DIVALPROEX 125 MG CAP.SPRINK PO SCH ×2 (08:22→17:25)
[2022-03-21 16:27] VITALS: BP 117/70
[2022-03-21] MEDS: ATORVASTATIN CALCIUM 20 MG TABLET PO SCH (20:21)
[2022-03-21] MEDS: TEMAZEPAM 15 MG CAPSULE PO SCH (20:21)
[2022-03-21] MEDS: MIRTAZAPINE 7.5 MG TABLET. PO SCH (20:21)
[2022-03-21] MEDS: QUEtiapine 50 MG TABLET. PO SCH (20:21)
--- NOTE | 2022-03-21 21:49 | PDOC ---
Exam Note: Jimmy Note: This note is a late entry for 03/20/2022 covers elements not covered in my initial note. Subjective: The patient was reviewed at treatment team meeting individually in the morning on 03/20/2022 with Diann Corea, Trista Copeland, and Karena Rollins (social media project manager), and Anju, activity therapy, and Samantha RN, discussed and reviewed the chart. The patient slept 7-1/2 hours previous night. His Jesusita attended the treatment team meeting. Patients gave a very cogent history of deterioration from a cognitive standpoint. He has Medicaid pending and social service staff is actively arranging for placement. Fluids are being pushed. He is wanting to go off the unit, in fact he went out for a few seconds and returned by the visitors quickly. He does attend groups, is more social. He did have a shower today due to bowel movement. Review of Systems: No CV, , pulmonary, eye, ENT system symptoms on review. Mental Status Exam: Patient is oriented to himself. Insight and judgment, recent and remote memory, attention and concentration, fund of knowledge is poor consistent with his diagnoses. Laboratory Data: Reviewed. Impression: Major neurocognitive disorder, Alzheimer, vascular with delusion, depression, behavioral disturbance. Anxiety disorder unspecified. Impulse control disorder unspecified. Plan: Continue current psychotropics unchanged. Reviewed drug interactions, risk-benefit ratio. Adjust as clinically indicated. Assessment: Vital Signs/I&O: Vital Signs Date Time Temp Pulse Resp B/P (MAP) Pulse Ox O2 Delivery O2 Flow Rate FiO2 03/21/22 16:27 98.5 71 20 117/70 (86) 97 03/21/22 06:33 Room Air I & O 03/20/22 03/20/22 03/21/22 15:00 23:00 07:00 Intake Total 580 ml 320 ml Balance 580 ml 320 ml Current Medications: I have reviewed the current psychotropics carefully including drug interactions. Risk benefit ratio favors no change other than as noted in my dictated progress note. Diagnosis: Problems: (1) Impulse control disorder, unspecified (2) Anxiety disorder, unspecified (3) Dementia, vascular, with depression (4) Dementia, vascular, with delusions (5) Dementia in Alzheimer's disease with depression (6) Dementia in Alzheimer's disease with delusions (7) Dementia of the Alzheimer's type with early onset with behavioral disturbance (8) Major neurocognitive disorder NOAH SEE MD March 21, 2022 21:49
--- NOTE | 2022-03-21 22:04 | PDOC ---
Exam Note: Jimmy Note: Please also refer to the separate dictated note~for this date of service dictated separately.~Patient seen individually. Discussed the patient with Nursing staff reviewed the chart.~Reviewed interim history and current functioning. Reviewed vital signs,~Labs/ Radiology~and current medications noted below. Continue current treatment with the changes noted in the dictated addendum note Assessment: Vital Signs/I&O: Vital Signs Date Time Temp Pulse Resp B/P (MAP) Pulse Ox O2 Delivery O2 Flow Rate FiO2 03/21/22 16:27 98.5 71 20 117/70 (86) 97 03/21/22 06:33 Room Air I & O 03/20/22 03/20/22 03/21/22 15:00 23:00 07:00 Intake Total 580 ml 320 ml Balance 580 ml 320 ml Current Medications: Meds: Current Medications Medications (Trade) Dose Ordered Sig/Valentino Route PRN Reason Start Time Stop Time Status Last Admin Dose Admin Acetaminophen (Tylenol) 650 mg PRN Q4HRS PRN PO MILD PAIN / TEMP > 100.3'F 02/24/22 13:30 03/10/22 09:12 Hydralazine HCl (Apresoline) 25 mg PRN QID PRN PO HYPERTENSION 02/24/22 13:30 Lorazepam (Ativan) 0.5 mg PRN Q6HRS PRN PO ANXIETY 02/24/22 13:30 03/14/22 08:22 Ondansetron HCl (Zofran Odt) 4 mg PRN Q4HRS PRN PO NAUSEA/VOMITING 02/24/22 13:30 Polyethylene Glycol (miraLAX) 17 gm PRN DAILY PRN PO 1ST CHOICE CONSTIPATION 02/24/22 13:30 Quetiapine Fumarate (SEROquel) 50 mg QHS PO 02/24/22 21:00 03/21/22 20:21 Quetiapine Fumarate (SEROquel) 100 mg DAILY PO 02/25/22 09:00 03/21/22 08:21 Sertraline HCl (Zoloft) 50 mg DAILY PO 02/25/22 09:00 02/25/22 17:01 DC 02/25/22 07:45 Temazepam (Restoril) 15 mg QHS PO 02/24/22 21:00 03/21/22 20:21 Atorvastatin Calcium (Lipitor) 80 mg DAILY PO 02/25/22 09:00 02/25/22 11:05 DC Glucosamine/ Chondroitin (Glucosamine-Chondroitin 500/400mg) 1 cap DAILY PO 02/25/22 09:00 03/21/22 08:21 Metoprolol Succinate (Toprol Xl) 100 mg DAILY PO 02/25/22 09:00 03/21/22 08:21 Multivitamins/ Calcium (Thera-M Plus) 1 tab DAILY PO 02/25/22 09:00 03/21/22 08:21 Acetaminophen (Tylenol) 650 mg PRN Q6HRS PRN PO MILD PAIN / TEMP > 100.3'F 02/24/22 13:45 Cancel Multi-Ingredient Ointment (Analgesic [place]) 1 marifer PRN QID PRN TP MUSCLE PAIN 02/24/22 13:45 Al Hydroxide/Mg Hydroxide (Mylanta Plus Xs) 15 ml PRN AFTMEALHC PRN PO DYSPEPSIA 02/24/22 13:45 Magnesium Hydroxide (Milk Of Magnesia) 2,400 mg PRN QHS PRN PO 2ND CHOICE CONSTIPATION 02/24/22 13:45 Atorvastatin Calcium (Lipitor) 80 mg HS PO 02/25/22 21:00 03/21/22 20:21 Sertraline HCl (Zoloft) 75 mg DAILY PO 02/26/22 09:00 03/01/22 20:19 DC 03/01/22 08:23 Divalproex Sodium (Depakote Sprinkles) 125 mg 0900,1700 PO 02/27/22 09:00 03/02/22 20:38 DC 03/02/22 16:04 Mirtazapine (Remeron) 7.5 mg QHS PO 02/27/22 21:00 03/21/22 20:21 Sertraline HCl (Zoloft) 100 mg DAILY PO 03/02/22 09:00 03/21/22 08:21 Divalproex Sodium (Depakote Sprinkles) 250 mg DAILY PO 03/03/22 09:00 UNV Divalproex Sodium (Depakote Sprinkles) 250 mg 0900 PO 03/03/22 09:00 03/21/22 08:22 Divalproex Sodium (Depakote Sprinkles) 125 mg 1700 PO 03/03/22 17:00 03/21/22 17:25 I have reviewed the current psychotropics carefully including drug interactions. Risk benefit ratio favors no change other than as noted in my dictated progress note. Diagnosis: Problems: (1) Impulse control disorder, unspecified (2) Anxiety disorder, unspecified (3) Dementia, vascular, with depression (4) Dementia, vascular, with delusions (5) Dementia in Alzheimer's disease with depression (6) Dementia in Alzheimer's disease with delusions (7) Dementia of the Alzheimer's type with early onset with behavioral disturbance (8) Major neurocognitive disorder NOAH SEE MD March 21, 2022 22:04
[2022-03-22 06:08] VITALS: BP 144/77
[2022-03-22] MEDS: DIVALPROEX 125 MG CAP.SPRINK PO SCH ×2 (07:22→16:03)
[2022-03-22] MEDS: GLUCOSAMINE/CHOND 500/400MG CAPSULE PO SCH (07:23)
[2022-03-22] MEDS: METOPROLOL SUCC 24HR ER 50 MG TAB.ER.24H. PO SCH (07:23)
[2022-03-22] MEDS: MULTIVITAMIN with MINERAL TABLET. PO SCH (07:23)
[2022-03-22] MEDS: QUEtiapine 100 MG TABLET. PO SCH (07:23)
[2022-03-22] MEDS: SERTRALINE 50 MG TABLET. PO SCH (07:23)
--- NOTE | 2022-03-22 08:42 | PDOC ---
Exam Note: Jimmy Note: This note is a late entry for 03/21/2022 covers elements not covered in my initial note. Subjective: The patient was seen individually on 03/21/2022, discussed and reviewed the chart with Ellen HAMPTON. The patient slept 7-3/4 hours previous night. He remains confused, about the same. 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 I met with him in his room. Review of Systems: No CV, , pulmonary, eye, ENT system symptoms on review. Mental Status Exam: Patient is oriented to himself. Insight and judgment, recent and remote memory, attention and concentration, fund of knowledge is poor consistent with his diagnoses. Laboratory Data: Reviewed. Impression: Major neurocognitive disorder, Alzheimer, vascular with delusion, depression, behavioral disturbance. Anxiety disorder unspecified. Impulse control disorder unspecified. Plan: Continue current psychotropics unchanged. Reviewed drug interactions, risk-benefit ratio. Adjust as clinically indicated. Dr. Jules will cover for me from 03/22/2022 until 04/08/2022. Assessment: Vital Signs/I&O: Vital Signs Date Time Temp Pulse Resp B/P (MAP) Pulse Ox O2 Delivery O2 Flow Rate FiO2 03/22/22 07:23 70 144/77 03/22/22 06:08 97.5 20 95 03/21/22 06:33 Room Air I & O 03/21/22 03/21/22 03/22/22 15:00 23:00 07:00 Intake Total 820 ml 560 ml Balance 820 ml 560 ml Current Medications: I have reviewed the current psychotropics carefully including drug interactions. Risk benefit ratio favors no change other than as noted in my dictated progress note. Diagnosis: Problems: (1) Impulse control disorder, unspecified (2) Anxiety disorder, unspecified (3) Dementia, vascular, with depression (4) Dementia, vascular, with delusions (5) Dementia in Alzheimer's disease with depression (6) Dementia in Alzheimer's disease with delusions (7) Dementia of the Alzheimer's type with early onset with behavioral disturbance (8) Major neurocognitive disorder NOAH SEE MD March 22, 2022 08:42
[2022-03-22 15:52] VITALS: BP 130/81
[2022-03-22] MEDS: ATORVASTATIN CALCIUM 20 MG TABLET PO SCH (19:53)
[2022-03-22] MEDS: TEMAZEPAM 15 MG CAPSULE PO SCH (19:53)
[2022-03-22] MEDS: QUEtiapine 50 MG TABLET. PO SCH (19:54)
[2022-03-22] MEDS: MIRTAZAPINE 7.5 MG TABLET. PO SCH (19:54)
--- NOTE | 2022-03-23 03:28 | PN ---
DATE: 03/22/2022 SUBJECTIVE: The patient was seen today, met with the staff. Chart reviewed and also covering for Dr. Barrera. Staff reports increased confusion, tend to wander, but medication compliant. The patient is also exhibiting increased anxiety at times. OBSERVATION: VITAL SIGNS: Temperature 97.5, blood pressure 144/77, pulse 70, respirations 20, O2 sat 95%. GENERAL: Slept about 7 hours last night. The patient's appetite improved. CURRENT MEDICATIONS: The patient's current medications include Depakote 125 mg in the evening and 250 mg in the morning, Zoloft 100 mg daily, mirtazapine 7.5 mg at night, Seroquel 100 mg daily, temazepam 15 mg at night, Seroquel 50 mg at night, lorazepam 0.5 mg q. 6 hours p.r.n. LABORATORY DATA: The patient's lab reviewed. The patient's Depakote level was 23. ASSESSMENT: 1. Major neurocognitive disorder, Alzheimer's, vascular with delusion, depression and behavioral disturbances. 2. Anxiety disorder, unspecified. PLAN: To continue with the treatment. LENGTH OF STAY: 5-[address]: Gifty TID: [id number]
[2022-03-23 06:23] VITALS: BP 132/76
[2022-03-23] MEDS: DIVALPROEX 125 MG CAP.SPRINK PO SCH ×2 (07:31→15:39)
[2022-03-23] MEDS: QUEtiapine 100 MG TABLET. PO SCH (07:32)
[2022-03-23] MEDS: METOPROLOL SUCC 24HR ER 50 MG TAB.ER.24H. PO SCH (07:32)
[2022-03-23] MEDS: SERTRALINE 50 MG TABLET. PO SCH (07:32)
[2022-03-23] MEDS: GLUCOSAMINE/CHOND 500/400MG CAPSULE PO SCH (07:32)
[2022-03-23] MEDS: MULTIVITAMIN with MINERAL TABLET. PO SCH (07:32)
[2022-03-23 15:44] VITALS: BP 118/61
[2022-03-23] MEDS: MIRTAZAPINE 7.5 MG TABLET. PO SCH (20:01)
[2022-03-23] MEDS: QUEtiapine 50 MG TABLET. PO SCH (20:01)
[2022-03-23] MEDS: ATORVASTATIN CALCIUM 20 MG TABLET PO SCH (20:01)
[2022-03-23] MEDS: TEMAZEPAM 15 MG CAPSULE PO SCH (20:01)
[2022-03-24 04:02] LABS: CLARITY,URINE CLEAR; COLOR,URINE YELLOW; GLUCOSE,URINE NEG (NEG)
[2022-03-24 04:03] LABS: BACTERIA,URINE 0 /HPF (0-FEW); NITRITE,URINE NEG (NEG); RBC,URINE 0 /HPF (0-2); UROBILINOGEN,URINE 0.2 mg/dL (0.2 mg/dL); WBC,URINE OCC /HPF (0-4)
[2022-03-24 06:02] VITALS: BP 129/63
[2022-03-24] MEDS: METOPROLOL SUCC 24HR ER 50 MG TAB.ER.24H. PO SCH (08:17)
[2022-03-24] MEDS: GLUCOSAMINE/CHOND 500/400MG CAPSULE PO SCH (08:17)
[2022-03-24] MEDS: DIVALPROEX 125 MG CAP.SPRINK PO SCH ×2 (08:17→17:18)
[2022-03-24] MEDS: MULTIVITAMIN with MINERAL TABLET. PO SCH (08:18)
[2022-03-24] MEDS: SERTRALINE 50 MG TABLET. PO SCH (08:18)
[2022-03-24] MEDS: QUEtiapine 100 MG TABLET. PO SCH (08:18)
--- NOTE | 2022-03-24 10:04 | PN ---
DATE: 03/23/2022 SUBJECTIVE: The patient was seen today, met with the staff. Chart reviewed and also covering for Dr. Barrera. Staff reports no major behavior problems today. He has been pleasant, but confused. OBSERVATION: VITAL SIGNS: Temperature 97.5, blood pressure 132/76, pulse 65, respirations 70, O2 sat 96%. GENERAL: Slept about 7 hours last night. The patient's appetite improved. CURRENT MEDICATIONS: Include Depakote 125 mg in the evening and 250 mg in the morning, Zoloft 100 mg daily, mirtazapine 7.5 mg at night, Seroquel 100 mg daily, temazepam 5 mg at night, Seroquel 50 mg at night. The patient is also on lorazepam 0.5 mg q. 6 hours p.r.n. The patient is not having any side effects to medications. LABORATORY DATA: The patient's lab reviewed. ASSESSMENT: 1. Major neurocognitive disorder, Alzheimer's, vascular with delusions, depression, and behavioral disturbances. 2. Anxiety disorder, unspecified. PLAN: To continue treatment. LENGTH OF STAY: Five days. MICHELE/MITCHEL DR: Gifty TID: [id number]
[2022-03-24 16:04] VITALS: BP 140/75
[2022-03-24] MEDS: ATORVASTATIN CALCIUM 20 MG TABLET PO SCH (20:00)
[2022-03-24] MEDS: QUEtiapine 50 MG TABLET. PO SCH (20:00)
[2022-03-24] MEDS: MIRTAZAPINE 7.5 MG TABLET. PO SCH (20:00)
[2022-03-24] MEDS: TEMAZEPAM 15 MG CAPSULE PO SCH (20:00)
[2022-03-25 06:21] VITALS: BP 147/76
[2022-03-25] MEDS: METOPROLOL SUCC 24HR ER 50 MG TAB.ER.24H. PO SCH (08:59)
[2022-03-25] MEDS: QUEtiapine 100 MG TABLET. PO SCH (08:59)
[2022-03-25] MEDS: MULTIVITAMIN with MINERAL TABLET. PO SCH (08:59)
[2022-03-25] MEDS: DIVALPROEX 125 MG CAP.SPRINK PO SCH ×2 (09:00→17:17)
[2022-03-25] MEDS: GLUCOSAMINE/CHOND 500/400MG CAPSULE PO SCH (09:00)
[2022-03-25] MEDS: SERTRALINE 50 MG TABLET. PO SCH (09:00)
--- NOTE | 2022-03-25 09:28 | PN ---
DATE: 03/24/2022 SUBJECTIVE: The patient was seen today, met with the staff, chart reviewed and also covering for Dr. Barrera. Staff reports he is pleasantly confused, but disorganized thinking. He is medication compliant. Still unsteady on his feet. The patient also complains of decreased appetite, overall showed improvement. OBSERVATION: VITAL SIGNS: Temperature 97.0, blood pressure 129/63, pulse 74, respirations 20, O2 sat 95%. GENERAL: Slept about 6 hours last night. CURRENT MEDICATIONS: The patient's current medications include Depakote 125 mg in the evening and 250 mg in the morning, Zoloft 100 mg daily, mirtazapine 7.5 mg at night, Seroquel 100 mg daily, temazepam 5 mg at night, Seroquel 50 mg at night. The patient is also on lorazepam 0.5 mg q. 6 hours p.r.n. The patient is not exhibiting any side effects to medications. LABORATORY DATA: The patient's lab reviewed. ASSESSMENT: 1. Major neurocognitive disorder, Alzheimer's versus vascular with the delusions, depression and behavioral disturbances. 2. Anxiety disorder, unspecified. PLAN: To continue with the treatment. LENGTH OF STAY: [address]: Gifty TID: [id number]
[2022-03-25 16:12] VITALS: BP 107/65
[2022-03-25] MEDS: MIRTAZAPINE 7.5 MG TABLET. PO SCH (19:45)
[2022-03-25] MEDS: TEMAZEPAM 15 MG CAPSULE PO SCH (19:45)
[2022-03-25] MEDS: QUEtiapine 50 MG TABLET. PO SCH (19:45)
[2022-03-25] MEDS: ATORVASTATIN CALCIUM 20 MG TABLET PO SCH (19:45)
[2022-03-26 05:32] VITALS: BP 157/86
[2022-03-26] MEDS: QUEtiapine 100 MG TABLET. PO SCH (08:28)
[2022-03-26] MEDS: SERTRALINE 50 MG TABLET. PO SCH (08:28)
[2022-03-26] MEDS: METOPROLOL SUCC 24HR ER 50 MG TAB.ER.24H. PO SCH (08:29)
[2022-03-26] MEDS: MULTIVITAMIN with MINERAL TABLET. PO SCH (08:29)
[2022-03-26] MEDS: DIVALPROEX 125 MG CAP.SPRINK PO SCH ×2 (08:29→17:27)
[2022-03-26] MEDS: GLUCOSAMINE/CHOND 500/400MG CAPSULE PO SCH (08:30)
[2022-03-26 16:14] VITALS: BP 111/72
--- NOTE | 2022-03-26 16:44 | PN ---
DATE: 03/25/2022 SUBJECTIVE: The patient was seen today, met with the staff. Chart reviewed and covering for Dr. Barrera. Staff reports that he is pleasant, confused, disorganized and medication compliant. OBSERVATION: VITAL SIGNS: Temperature 98.0, blood pressure 107/65, pulse 74, respirations 16, O2 sat 96%. GENERAL: Slept about 7 hours last night. The patient's appetite improved. CURRENT MEDICATIONS: Depakote 125 mg daily and 250 mg daily, Zoloft 100 mg daily, mirtazapine 7.5 mg at night, Seroquel 100 mg daily, temazepam 15 mg at night, Seroquel 50 mg at night, and lorazepam 0.5 mg q. 6 hours p.r.n. The patient is not having any side effects of the medications. LABORATORY DATA: The patient's lab reviewed. ASSESSMENT: 1. Major neurocognitive disorder, Alzheimer's versus vascular with delusions, depression and behavioral disturbances. 2. Anxiety disorder, unspecified. PLAN: To continue with the treatment. LENGTH OF STAY: Five days. MAHAMED/RAMESH/MADELYN DR: Gifty TID: [id number]
[2022-03-26] MEDS: TEMAZEPAM 15 MG CAPSULE PO SCH (21:04)
[2022-03-26] MEDS: QUEtiapine 50 MG TABLET. PO SCH (21:04)
[2022-03-26] MEDS: ATORVASTATIN CALCIUM 20 MG TABLET PO SCH (21:04)
[2022-03-26] MEDS: MIRTAZAPINE 7.5 MG TABLET. PO SCH (21:04)
--- NOTE | 2022-03-27 04:24 | PN ---
DATE: 03/26/2022 SUBJECTIVE: The patient was seen today, met with the staff, chart was reviewed and covering for Dr. See. Staff reports he has been cooperative, attention-seeking and also exit-seeking behaviors. OBSERVATION: VITAL SIGNS: Temperature 97.6, blood pressure 157/86, pulse 69, respirations 20, O2 sat 99%. GENERAL: Slept about 7 hours last night. CURRENT MEDICATIONS: Include Depakote Sprinkles 125 mg in the evening and 250 mg in the morning, Zoloft 100 mg daily, mirtazapine 7.5 mg at night, Seroquel 100 mg at night, temazepam 15 mg at night, Seroquel 50 mg at night, lorazepam 0.5 mg q. 6 hours p.r.n. The patient is not having any side effects of the medications. LABORATORY DATA: Reviewed. ASSESSMENT: 1. Major neurocognitive disorder, Alzheimer's versus vascular with delusions, depression and behavioral disturbances. 2. Anxiety disorder, unspecified. PLAN: To continue treatment. LENGTH OF STAY: Five days. MAHAMED DR: Gifty TID: [id number] CC: NOAH SEE MD
[2022-03-27 05:55] VITALS: BP 172/96
[2022-03-27 06:07] LABS: BASO % 1 % (0-3); EOS # 0.2 x10^3/uL (0.0-0.7); EOS % 3 % (0-3); HEMATOCRIT 34.4 % (39.0-53.0); HEMOGLOBIN 11.3 g/dL (13.0-17.5); LYMPH # 1.7 x10^3/uL (1.0-4.8); LYMPH % 24 % (24-48); MEAN CORPUSCULAR HEMOGLOBIN 33 pg (25-35); MEAN CORPUSCULAR HGB CONC 33 g/dL (31-37); MEAN CORPUSCULAR VOLUME 99 fL (79-100); MONO # 0.7 x10^3/uL (0.0-1.1); MONO % 10 % (0-9); NEUT # 4.4 x10^3uL (1.8-7.7); NEUT % 63 % (31-73); PLATELET COUNT 160 x10^3/uL (140-400); RED BLOOD COUNT 3.48 x10^6/uL (4.30-5.70); RED CELL DISTRIBUTION WIDTH 14.3 % (11.5-14.5); WHITE BLOOD COUNT 7.1 x10^3/uL (4.0-11.0)
[2022-03-27 06:18] LABS: ALBUMIN 3.2 g/dL (3.4-5.0); CALCIUM 8.4 mg/dL (8.5-10.1); CREATININE 1.4 mg/dL (0.7-1.3); GFR 48.6; POTASSIUM 4.2 mmol/L (3.5-5.1); TOTAL BILIRUBIN 0.6 mg/dL (0.2-1.0); TOTAL PROTEIN 6.5 g/dL (6.4-8.2)
[2022-03-27] MEDS: MULTIVITAMIN with MINERAL TABLET. PO SCH (08:48)
[2022-03-27] MEDS: QUEtiapine 100 MG TABLET. PO SCH (08:48)
[2022-03-27] MEDS: SERTRALINE 50 MG TABLET. PO SCH (08:48)
[2022-03-27] MEDS: DIVALPROEX 125 MG CAP.SPRINK PO SCH ×2 (08:48→17:29)
[2022-03-27] MEDS: GLUCOSAMINE/CHOND 500/400MG CAPSULE PO SCH (08:48)
[2022-03-27] MEDS: METOPROLOL SUCC 24HR ER 50 MG TAB.ER.24H. PO SCH (08:49)
--- NOTE | 2022-03-27 16:14 | TX PLAN ---
Interdisciplinary Tx Plan Admission Information Feb 24, 2022 at 12:12 Legal Status (on Admission): Voluntary DPOA/Guardian Name: Jesusita Null Contact Other Contact Name: Jesusita Null Other Contact Verified Code Status: DNR Allergies: Coded Allergies: No Known Drug Allergies (Unverified , 02/24/22) Diagnoses Primary Diagnosis: Dementia with BS Reasons for Admission: Agitated, Sig. Change Sleep, Confusion/Disoriented, Poor impulse control, Other Problem in Patient's Words: Declining fast cognitively and unable to identify safety cues Additional Admission Comments: According to the intake, pt was drinking dish soap/baby shampoo and other non-food items (shaving cream, bath bomb, cookie jar lid), insomnia, turning on burners on the stove while wandering at HS, throwing things and thinks it's funny, wandering/eloping from the house, pulling items from the wall, putting on 's clothes, etc Problems Active Problems: confused disorganized wandering Inactive Problems: Medication compliant Pt Strengths/Limitations Ability for [place]: Poor Cognitive Functioning/Ability: Poor Communication Skills/Ability: Fair Financial Resources: Fair Insight/Judgement: Poor Intellectual Ability: Fair Physical Health: Poor Social Skills: Fair Stability in Family: Good Stability in School/Work: Poor Verbal Skills: Fair Discharge Criteria Discharge Criteria: Adequate arrangements @DC, Improved behavior, Improved mood/thought Preliminary Discharge Plan Preliminary DC Plan: Placement Needed Special Precautions Fall Risk: Low Initial D/C Plan Will need referrals for placement. Identified Discharge Needs: Referrals to a higher level of care Currently Utilized Resources Currently Utilized Resources/P: PCP Referrals Community Resources: Referrals for a higher level of care Identified Problems/Hx/Goals Objectives/Short-Term Goals Short Term Goals: Dec. Outbursts, Medication Stabilization, Monitor Med Effects, Prevent Deterioration, Promote Coping Skill Short Term Goals in Patient's: N/A Interventions/Frequency Staff Interventions/Frequency&: Psychiatrist to assess pt at least 3x per week for medication management Social Work to assess pt at least 2x per week to identify barriers to care and discharge planning. Nursing to assess medication effects, behavior modification and complete 15 minute checks Encourage participation in group activities (if applicable) or 1:1 engagement based off activity dept goals. 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 Pt officially retired from it all in 2018. Education: Pt graduated from high school (12th grade) and then attended [employer] receiving his degree in Education; which he never used. Community Follow-up PCP Community Provider/Family Inpu: I want him home but I just don't think I can keep him safe, so we'll look at placement Treatment Plan Explained Patient/Profiling Machine Set Up Operator Tool had this treatment plan explained to him/her as indicated by the signature below and has been given the opportunity to ask questions and make suggestions: Date: Patient/Profiling Machine Set Up Operator Tool Signature: Status Update Update Pt is eating up to 75% of meals and sleeping on average 7 hours per night. Pt is doing significantly better as he is doing less wandering; pt is pleasantly confused, disorganized but medication compliant. Pt has attended seven groups with minimal participation; but has not displayed any extreme behavioral issues. Pt is in the process of applying for Medicaid, but has not received a processing number. SW will go ahead and send out referrals for placement. HOWARD WALSH March 27, 2022 16:14
[2022-03-27 16:17] VITALS: BP 110/57
[2022-03-27] MEDS: ATORVASTATIN CALCIUM 20 MG TABLET PO SCH (19:56)
[2022-03-27] MEDS: TEMAZEPAM 15 MG CAPSULE PO SCH (19:56)
[2022-03-27] MEDS: MIRTAZAPINE 7.5 MG TABLET. PO SCH (19:56)
[2022-03-27] MEDS: QUEtiapine 50 MG TABLET. PO SCH (19:56)
--- NOTE | 2022-03-28 05:34 | PN ---
DATE: 03/27/2022 SUBJECTIVE: The patient was seen today, met with the staff. Chart was reviewed and covering for Dr. Barrera. The patient's behavior remains the same. He has been cooperative, attention seeking, and also exit-seeking behaviors and confusion. OBSERVATION: VITAL SIGNS: Temperature 98.4, blood pressure 110/57, pulse 85, respirations 18, O2 sat 97%. GENERAL: Slept about 7 hours last night. CURRENT MEDICATIONS: Depakote sprinkles 250 in the morning and Zoloft 100 mg daily. The patient is also on mirtazapine 7.5 mg at night, Seroquel 50 mg at night, temazepam 15 mg at night, and lorazepam 0.5 mg q. 6 hours p.r.n. He is not having any side effects. LABORATORY DATA: Reviewed. ASSESSMENT: 1. Major neurocognitive disorder, Alzheimer's versus vascular with delusion, depression and behavioral disturbances. 2. Anxiety disorder, unspecified. PLAN: To continue with treatment. LENGTH OF STAY: 5 days. ROSA/NGOC DR: Gifty TID: [id number]
[2022-03-28 06:11] VITALS: BP 156/91
[2022-03-28] MEDS: QUEtiapine 100 MG TABLET. PO SCH (08:04)
[2022-03-28] MEDS: DIVALPROEX 125 MG CAP.SPRINK PO SCH ×2 (08:04→17:39)
[2022-03-28] MEDS: MULTIVITAMIN with MINERAL TABLET. PO SCH (08:04)
[2022-03-28] MEDS: GLUCOSAMINE/CHOND 500/400MG CAPSULE PO SCH (08:04)
[2022-03-28] MEDS: METOPROLOL SUCC 24HR ER 50 MG TAB.ER.24H. PO SCH (08:05)
[2022-03-28] MEDS: SERTRALINE 50 MG TABLET. PO SCH (08:05)
[2022-03-28 15:43] VITALS: BP 153/93
[2022-03-28] MEDS: MIRTAZAPINE 7.5 MG TABLET. PO SCH ×2 (21:00→21:22)
[2022-03-28] MEDS: TEMAZEPAM 15 MG CAPSULE PO SCH ×2 (21:00→21:23)
[2022-03-28] MEDS: ATORVASTATIN CALCIUM 20 MG TABLET PO SCH ×2 (21:00→21:23)
[2022-03-28] MEDS: QUEtiapine 50 MG TABLET. PO SCH ×2 (21:00→21:23)
[2022-03-29 06:15] VITALS: BP 128/68
[2022-03-29] MEDS: GLUCOSAMINE/CHOND 500/400MG CAPSULE PO SCH (08:05)
[2022-03-29] MEDS: METOPROLOL SUCC 24HR ER 50 MG TAB.ER.24H. PO SCH (08:06)
[2022-03-29] MEDS: DIVALPROEX 125 MG CAP.SPRINK PO SCH ×2 (08:06→17:22)
[2022-03-29] MEDS: MULTIVITAMIN with MINERAL TABLET. PO SCH (08:06)
[2022-03-29] MEDS: SERTRALINE 50 MG TABLET. PO SCH (08:06)
[2022-03-29] MEDS: QUEtiapine 100 MG TABLET. PO SCH (08:07)
[2022-03-29 15:45] VITALS: BP 109/73
[2022-03-29] MEDS: TEMAZEPAM 15 MG CAPSULE PO SCH (20:07)
[2022-03-29] MEDS: ATORVASTATIN CALCIUM 20 MG TABLET PO SCH (20:07)
[2022-03-29] MEDS: MIRTAZAPINE 7.5 MG TABLET. PO SCH (20:07)
[2022-03-29] MEDS: QUEtiapine 50 MG TABLET. PO SCH (20:07)
--- NOTE | 2022-03-30 03:39 | PN ---
DATE: 03/28/2022 This is a late entry for the service date 03/28/2022. SUBJECTIVE: The patient was seen today, met with the staff. Chart was reviewed and covering for Dr. Barrera. The patient's behavior is slightly improved. He continues to have problems with exit-seeking behaviors, periods of confusion and attention seeking. OBSERVATION: VITAL SIGNS: Temperature 98.8, blood pressure 153/93, pulse 75, respirations 20, O2 sat 93%. GENERAL: The patient's appetite is fair. Slept about 7 hours last night. CURRENT MEDICATIONS: Depakote sprinkles 250 mg in the morning, Zoloft 100 mg daily, mirtazapine 7.5 mg at night, Seroquel 50 mg at night, temazepam 15 mg at night. He is also on lorazepam 0.5 mg q. 6 hours p.r.n. The patient is not having any side effects to medications. LABORATORY DATA: The patient's lab reviewed. ASSESSMENT: 1. Major neurocognitive disorder, Alzheimer's versus vascular with delusion, depression and behavioral disturbances. 2. Anxiety disorder, unspecified. PLAN: To continue with the treatment. LENGTH OF STAY: Five days. DULCE DR: Gifty TID: [id number]
--- NOTE | 2022-03-30 04:36 | PN ---
DATE: 03/29/2022 SUBJECTIVE: The patient was seen today, met with the staff. Chart was reviewed and covering for Dr. Barrera. Staff reports he is pleasantly confused, refusing to take his night medications and also disorganized with his thinking. OBSERVATION: VITAL SIGNS: Temperature 98.3, blood pressure 128/68, pulse 68, respirations 18, O2 sat 94%. GENERAL: Slept about 7 hours last night. The patient's appetite is fair. CURRENT MEDICATIONS: The patient's current medications, Depakote sprinkles 250 mg in the morning, Zoloft 100 mg daily, mirtazapine 7.5 mg at night, Seroquel 50 mg at night, and temazepam 15 mg at night. The patient is also on lorazepam as p.r.n. He is not having any side effects to medications. LABORATORY DATA: Reviewed. ASSESSMENT: 1. Major neurocognitive disorder, most likely Alzheimer's versus vascular with delusion, depression, and behavioral disturbances. 2. Anxiety disorder, unspecified. PLAN: Continue treatment. LENGTH OF STAY: Five days. DULCE DR: Gifty TID: [id number]
[2022-03-30 06:00] VITALS: BP 130/77
[2022-03-30] MEDS: DIVALPROEX 125 MG CAP.SPRINK PO SCH ×2 (08:48→17:00)
[2022-03-30] MEDS: METOPROLOL SUCC 24HR ER 50 MG TAB.ER.24H. PO SCH (08:48)
[2022-03-30] MEDS: QUEtiapine 100 MG TABLET. PO SCH (08:48)
[2022-03-30] MEDS: SERTRALINE 50 MG TABLET. PO SCH (08:48)
[2022-03-30] MEDS: GLUCOSAMINE/CHOND 500/400MG CAPSULE PO SCH (08:48)
[2022-03-30] MEDS: MULTIVITAMIN with MINERAL TABLET. PO SCH (08:49)
[2022-03-30 16:10] VITALS: BP 119/69
[2022-03-30] MEDS: ATORVASTATIN CALCIUM 20 MG TABLET PO SCH (19:32)
[2022-03-30] MEDS: TEMAZEPAM 15 MG CAPSULE PO SCH (19:32)
[2022-03-30] MEDS: QUEtiapine 50 MG TABLET. PO SCH (19:33)
[2022-03-30] MEDS: MIRTAZAPINE 7.5 MG TABLET. PO SCH (19:33)
--- NOTE | 2022-03-31 00:15 | PN ---
DATE: 03/30/2022 SUBJECTIVE: The patient was seen today, met with the staff. Chart was reviewed and covering for Dr. Barrera. Staff reports increased confusion, disorganized thinking, but overall pleasant. No major behavior problems. The patient is easily redirectable. OBSERVATION: VITAL SIGNS: Temperature 97.3, blood pressure 130/77, pulse 63, respirations 18, O2 sat 93%. GENERAL: Slept about 6 hours last night. The patient's appetite is fair. CURRENT MEDICATIONS: The patient's current medications include Depakote sprinkles 250 mg in the morning, Zoloft 100 mg daily, mirtazapine 7.5 mg at night, Seroquel 50 mg at night, and temazepam 15 mg at night. The patient is not having any side effects to medications. LABORATORY DATA: The patient's lab reviewed. ASSESSMENT: 1. Major neurocognitive disorder, most likely Alzheimer's versus vascular with delusion, depression and behavioral disturbances. 2. Anxiety disorder, unspecified. PLAN: To continue with treatment. LENGTH OF STAY: Three to four days, awaiting for placement. KI DR: Gifty TID: [id number]
[2022-03-31 06:15] VITALS: BP 143/84
[2022-03-31] MEDS: DIVALPROEX 125 MG CAP.SPRINK PO SCH ×2 (06:58→17:18)
[2022-03-31] MEDS: GLUCOSAMINE/CHOND 500/400MG CAPSULE PO SCH (06:58)
[2022-03-31] MEDS: QUEtiapine 100 MG TABLET. PO SCH (06:58)
[2022-03-31] MEDS: MULTIVITAMIN with MINERAL TABLET. PO SCH (06:58)
[2022-03-31] MEDS: METOPROLOL SUCC 24HR ER 50 MG TAB.ER.24H. PO SCH (06:59)
[2022-03-31] MEDS: SERTRALINE 50 MG TABLET. PO SCH (07:00)
[2022-03-31 16:08] VITALS: BP 150/87
[2022-03-31] MEDS: MIRTAZAPINE 7.5 MG TABLET. PO SCH (20:36)
[2022-03-31] MEDS: TEMAZEPAM 15 MG CAPSULE PO SCH (20:36)
[2022-03-31] MEDS: ATORVASTATIN CALCIUM 20 MG TABLET PO SCH (20:36)
[2022-03-31] MEDS: QUEtiapine 50 MG TABLET. PO SCH (20:36)
[2022-04-01 06:10] VITALS: BP 165/82
--- NOTE | 2022-04-01 06:46 | PN ---
DATE: 03/31/2022 SUBJECTIVE: The patient was seen today, met with the staff, chart reviewed, and covering for Dr. Barrera. Staff reports increased confusion, disorganized thinking, mostly in the evenings, mostly pleasant. The patient tends to wander at times, but no major behavior problems. OBSERVATION: VITAL SIGNS: Temperature 98.0, blood pressure 150/87, pulse 74, respirations 18, O2 sat 100%. GENERAL: Slept about 6 hours last night. The patient's appetite is fair. CURRENT MEDICATIONS: Depakote sprinkles 250 mg in the morning, Zoloft 100 mg daily, mirtazapine 7.5 mg at night, Seroquel 50 mg at night, and temazepam 15 mg at night. The patient is not exhibiting any side effects. LABORATORY DATA: The patient's lab reviewed. ASSESSMENT: 1. Major neurocognitive disorder, most likely Alzheimer's versus vascular with the delusion, depression and behavioral disturbances. 2. Anxiety disorder, unspecified. PLAN: To continue treatment. LENGTH OF STAY: 3-[address]: Gifty TID: [id number]
[2022-04-01] MEDS: GLUCOSAMINE/CHOND 500/400MG CAPSULE PO SCH (08:01)
[2022-04-01] MEDS: QUEtiapine 100 MG TABLET. PO SCH (08:02)
[2022-04-01] MEDS: SERTRALINE 50 MG TABLET. PO SCH (08:02)
[2022-04-01] MEDS: MULTIVITAMIN with MINERAL TABLET. PO SCH (08:02)
[2022-04-01] MEDS: DIVALPROEX 125 MG CAP.SPRINK PO SCH ×2 (08:02→16:51)
[2022-04-01] MEDS: METOPROLOL SUCC 24HR ER 50 MG TAB.ER.24H. PO SCH (08:02)
[2022-04-01 16:17] VITALS: BP 119/61
[2022-04-01] MEDS: MIRTAZAPINE 7.5 MG TABLET. PO SCH (21:01)
[2022-04-01] MEDS: QUEtiapine 50 MG TABLET. PO SCH (21:01)
[2022-04-01] MEDS: ATORVASTATIN CALCIUM 20 MG TABLET PO SCH (21:01)
[2022-04-01] MEDS: TEMAZEPAM 15 MG CAPSULE PO SCH (21:03)
[2022-04-02 07:00] VITALS: BP 138/72
[2022-04-02] MEDS: METOPROLOL SUCC 24HR ER 50 MG TAB.ER.24H. PO SCH (07:52)
[2022-04-02] MEDS: SERTRALINE 50 MG TABLET. PO SCH (07:52)
[2022-04-02] MEDS: GLUCOSAMINE/CHOND 500/400MG CAPSULE PO SCH (07:52)
[2022-04-02] MEDS: MULTIVITAMIN with MINERAL TABLET. PO SCH (07:53)
[2022-04-02] MEDS: QUEtiapine 100 MG TABLET. PO SCH (07:53)
[2022-04-02] MEDS: DIVALPROEX 125 MG CAP.SPRINK PO SCH ×2 (07:53→16:57)
[2022-04-02 09:10] VITALS: BP 77/44
[2022-04-02 09:11] VITALS: BP 135/95
[2022-04-02 09:14] VITALS: BP 138/78
[2022-04-02 10:00] LABS: CALCIUM 8.9 mg/dL (8.5-10.1); CREATININE 1.5 mg/dL (0.7-1.3); GFR 44.9; POTASSIUM 4.1 mmol/L (3.5-5.1)
[2022-04-02 10:01] LABS: BASO % 1 % (0-3); EOS # 0.1 x10^3/uL (0.0-0.7); EOS % 1 % (0-3); HEMATOCRIT 34.3 % (39.0-53.0); HEMOGLOBIN 11.2 g/dL (13.0-17.5); LYMPH # 1.6 x10^3/uL (1.0-4.8); LYMPH % 19 % (24-48); MEAN CORPUSCULAR HEMOGLOBIN 33 pg (25-35); MEAN CORPUSCULAR HGB CONC 33 g/dL (31-37); MEAN CORPUSCULAR VOLUME 100 fL (79-100); MONO # 0.9 x10^3/uL (0.0-1.1); MONO % 11 % (0-9); NEUT # 5.5 x10^3uL (1.8-7.7); NEUT % 68 % (31-73); PLATELET COUNT 185 x10^3/uL (140-400); RED BLOOD COUNT 3.44 x10^6/uL (4.30-5.70); RED CELL DISTRIBUTION WIDTH 14.4 % (11.5-14.5); WHITE BLOOD COUNT 8.1 x10^3/uL (4.0-11.0)
[2022-04-02 10:07] LABS: ALBUMIN 3.3 g/dL (3.4-5.0); TOTAL BILIRUBIN 0.7 mg/dL (0.2-1.0); TOTAL PROTEIN 6.6 g/dL (6.4-8.2)
--- NOTE | 2022-04-02 10:49 | RAD ---
XR CHEST 1V History: Reason: change in status, sudden emesis, r/o aspiration / Spl. Instructions: RAPID RESPONSE / History: Comparison: December 03, 2021 Findings: Mild patchy mid and bibasilar opacities. Low lung volumes. No definite pleural effusions. Unchanged e nlarged cardiac size. Stable left-sided pacemaker. Postop changes right proximal humerus. No pneumoth orax. Impression: 1. Mild patchy mid and bibasilar opacities, may represent atelectasis or developing infiltrates incl uding aspiration. Recommend follow-up. Electronically signed by: Garrick Romero DO (04/02/2022 10:47 AM) [id number]
[2022-04-02 11:50] VITALS: BP 122/82
--- NOTE | 2022-04-02 15:07 | PN ---
DATE: 04/01/2022 SUBJECTIVE: The patient was seen today, met with the staff. Chart was reviewed and also covering for Dr. Barrera. Staff reports disorganized thinking, increased confusion, having some mood swings, irritability, overall pleasantly confused. OBSERVATION: VITAL SIGNS: Temperature 98.8, blood pressure 119/61, pulse 87, respirations 16, O2 sat 96%. GENERAL: Slept about 7 hours last night. The patient's appetite is fair. CURRENT MEDICATIONS: Depakote Sprinkles 250 mg in the morning, Zoloft 100 mg daily, mirtazapine 7.5 mg at night, Seroquel 50 mg at night, and temazepam 15 mg at night. The patient is not having any side effects to medications. LABORATORY DATA: The patient's lab reviewed. ASSESSMENT: 1. Major neurocognitive disorder, most likely Alzheimer's versus vascular with delusion, depression, behavioral disturbances. 2. Anxiety disorder, unspecified. PLAN: To continue with the treatment. LENGTH OF STAY: Three to four days. HANS DR: Gifty TID: [id number]
[2022-04-02 16:24] VITALS: BP 104/68
[2022-04-02] MEDS: QUEtiapine 50 MG TABLET. PO SCH (20:29)
[2022-04-02] MEDS: MIRTAZAPINE 7.5 MG TABLET. PO SCH (20:29)
[2022-04-02] MEDS: ATORVASTATIN CALCIUM 20 MG TABLET PO SCH (20:29)
[2022-04-02] MEDS: TEMAZEPAM 15 MG CAPSULE PO SCH (20:30)
[2022-04-03 06:24] VITALS: BP 161/95
[2022-04-03] MEDS ORDERED: DIPHENOXYLATE/ATROPINE TABLET. PO PRN (06:30)
[2022-04-03] MEDS: GLUCOSAMINE/CHOND 500/400MG CAPSULE PO SCH (07:29)
[2022-04-03] MEDS: MULTIVITAMIN with MINERAL TABLET. PO SCH (07:29)
[2022-04-03] MEDS: DIVALPROEX 125 MG CAP.SPRINK PO SCH ×2 (07:30→16:25)
[2022-04-03] MEDS: QUEtiapine 100 MG TABLET. PO SCH (07:30)
[2022-04-03] MEDS: METOPROLOL SUCC 24HR ER 50 MG TAB.ER.24H. PO SCH (07:30)
[2022-04-03] MEDS: SERTRALINE 50 MG TABLET. PO SCH (07:30)
--- NOTE | 2022-04-03 10:30 | PN ---
DATE: 04/02/2022 SUBJECTIVE: The patient was seen today, met with the staff. Chart was reviewed and covering for Dr. Barrera. The patient's behavior remains the same, calm, pleasant, no major behavior problems, but confused, needs to be redirected at times. Staff reports that he had a rapid response incident after breakfast, became pale and vomiting. OBSERVATION: VITAL SIGNS: Temperature 97.5, blood pressure 138/72, pulse 69, respirations 20, O2 sat 93%. GENERAL: Slept about 6 hours last night. The patient's appetite is fair. CURRENT MEDICATIONS: Depakote sprinkles 250 mg in the morning, Zoloft 100 mg daily, mirtazapine 7.5 mg at night, Seroquel 50 mg at night, temazepam 15 mg at night. The patient is not having any side effects to medications. LABORATORY DATA: The patient's lab reviewed. The patient's hemoglobin was 11.2. The patient's troponin was normal ASSESSMENT: 1. Major neurocognitive disorder, most likely Alzheimer's versus vascular with the delusion, depression and behavioral disturbances. 2. Anxiety disorder, unspecified. PLAN: To continue with treatment. LENGTH OF STAY: 3-4 days. MAHAMED/ELSY/MITCHEL DR: Gifty TID: [id number] MTDD
[2022-04-03 16:37] VITALS: BP 159/74
[2022-04-03] MEDS: ATORVASTATIN CALCIUM 20 MG TABLET PO SCH (19:52)
[2022-04-03] MEDS: QUEtiapine 50 MG TABLET. PO SCH (19:52)
[2022-04-03] MEDS: MIRTAZAPINE 7.5 MG TABLET. PO SCH (19:53)
[2022-04-03] MEDS: TEMAZEPAM 15 MG CAPSULE PO SCH (19:53)
--- NOTE | 2022-04-04 04:27 | PN ---
DATE: 04/03/2022 SUBJECTIVE: The patient was seen today, met with the staff. Chart was reviewed. I am covering for Dr. Barrera. The patient is pleasant, no major behavior problems, but confused, needs some redirection. The patient is much calmer. The patient's /DPOA was contacted by the nurse because of the patient's episodes of vomiting yesterday. OBSERVATION: VITAL SIGNS: Temperature 98.1, blood pressure 159/74, pulse 68, respirations 16, O2 sat 97%. GENERAL: The patient's appetite is fair. CURRENT MEDICATIONS: Depakote 250 mg in the morning, Zoloft 100 mg daily, mirtazapine 7.5 mg at night, Seroquel 50 mg at night, and temazepam 15 mg at night. The patient is not having any side effects to medications. LABORATORY DATA: The patient's lab reviewed. ASSESSMENT: 1. Major neurocognitive disorder, most likely Alzheimer's versus vascular with delusions, depression and behavioral disturbances. 2. Anxiety disorder, unspecified. PLAN: To continue treatment. LENGTH OF STAY: Three to four days. KI DR: Gifty TID: [id number]
[2022-04-04 05:51] VITALS: BP 134/62
[2022-04-04] MEDS: MULTIVITAMIN with MINERAL TABLET. PO SCH (07:21)
[2022-04-04] MEDS: QUEtiapine 100 MG TABLET. PO SCH (07:21)
[2022-04-04] MEDS: GLUCOSAMINE/CHOND 500/400MG CAPSULE PO SCH (07:21)
[2022-04-04] MEDS: DIVALPROEX 125 MG CAP.SPRINK PO SCH ×2 (07:22→17:41)
[2022-04-04] MEDS: SERTRALINE 50 MG TABLET. PO SCH (07:23)
[2022-04-04] MEDS: METOPROLOL SUCC 24HR ER 50 MG TAB.ER.24H. PO SCH (08:39)
[2022-04-04 15:37] VITALS: BP 114/71
[2022-04-04] MEDS: ACETAMINOPHEN 325 MG TABLET PO PRN (19:56)
[2022-04-04] MEDS: TEMAZEPAM 15 MG CAPSULE PO SCH (19:56)
[2022-04-04] MEDS: QUEtiapine 50 MG TABLET. PO SCH (19:56)
[2022-04-04] MEDS: ATORVASTATIN CALCIUM 20 MG TABLET PO SCH (19:56)
[2022-04-04] MEDS: MIRTAZAPINE 7.5 MG TABLET. PO SCH (19:56)
--- NOTE | 2022-04-05 04:39 | PN ---
DATE: 04/04/2022 SUBJECTIVE: The patient was seen today, met with the staff. Chart was reviewed and covering for Dr. Barrera. The patient's behavior has improved. He is pleasant, but confused, somewhat withdrawn, not depressed, interacts fairly well on 1:1 and also having significant cognitive deficits. OBSERVATION: VITAL SIGNS: Temperature 98.5, blood pressure 114/71, pulse 71, respirations 18, O2 sat 97%. GENERAL: The patient's appetite improved. Slept about 7 hours last night. CURRENT MEDICATIONS: Depakote 250 mg in the morning, Zoloft 100 mg daily, mirtazapine 7.5 mg at night, Seroquel 50 mg at night, and temazepam 15 mg at night. He is not having any side effects to medications. LABORATORY DATA: The patient's lab reviewed. ASSESSMENT: 1. Major neurocognitive disorder, most likely Alzheimer's versus vascular with delusions, depression and behavioral disturbances. 2. Anxiety disorder, unspecified. PLAN: To continue with the treatment. LENGTH OF STAY: Three to four days. DULCE DR: Gifty TID: [id number]
[2022-04-05 05:53] VITALS: BP 154/73
[2022-04-05] MEDS: GLUCOSAMINE/CHOND 500/400MG CAPSULE PO SCH (07:37)
[2022-04-05] MEDS: SERTRALINE 50 MG TABLET. PO SCH (07:37)
[2022-04-05] MEDS: DIVALPROEX 125 MG CAP.SPRINK PO SCH ×2 (07:37→16:27)
[2022-04-05] MEDS: MULTIVITAMIN with MINERAL TABLET. PO SCH (07:37)
[2022-04-05] MEDS: QUEtiapine 100 MG TABLET. PO SCH (07:37)
[2022-04-05 08:12] VITALS: BP 146/84
[2022-04-05] MEDS: METOPROLOL SUCC 24HR ER 50 MG TAB.ER.24H. PO SCH (08:36)
[2022-04-05 16:12] VITALS: BP 120/68
[2022-04-05] MEDS: TEMAZEPAM 15 MG CAPSULE PO SCH (19:58)
[2022-04-05] MEDS: ATORVASTATIN CALCIUM 20 MG TABLET PO SCH (19:58)
[2022-04-05] MEDS: LORazepam 0.5 MG TABLET PO PRN (19:58)
[2022-04-05] MEDS: QUEtiapine 50 MG TABLET. PO SCH (19:58)
[2022-04-05] MEDS: MIRTAZAPINE 7.5 MG TABLET. PO SCH (19:59)
--- NOTE | 2022-04-06 02:09 | PN ---
DATE: 04/05/2022 SUBJECTIVE: The patient was seen today, met with the staff. Chart was reviewed and covering for Dr. Barrera. Staff reports increased confusion, but cooperative, appropriate, medication compliant. OBSERVATION: VITAL SIGNS: Stable. GENERAL: The patient's sleep and appetite are fair. CURRENT MEDICATIONS: Depakote 250 mg in the morning, Zoloft 100 mg daily, mirtazapine 7.5 mg at night, Seroquel 50 mg at night, temazepam 15 mg at night. ALLERGIES: She is not having any side effects to medications. LABORATORY DATA: The patient's lab reviewed. ASSESSMENT: 1. Major neurocognitive disorder, most likely Alzheimer's versus vascular with delusion, depression, behavioral disturbances. 2. Anxiety disorder, unspecified. PLAN: To continue with the treatment. LENGTH OF STAY: Three to four days. ALBINO DR: Gifty TID: [id number]
[2022-04-06 05:59] VITALS: BP 166/93
[2022-04-06] MEDS: GLUCOSAMINE/CHOND 500/400MG CAPSULE PO SCH (07:21)
[2022-04-06] MEDS: MULTIVITAMIN with MINERAL TABLET. PO SCH (07:21)
[2022-04-06] MEDS: DIVALPROEX 125 MG CAP.SPRINK PO SCH ×2 (07:22→16:06)
[2022-04-06] MEDS: SERTRALINE 50 MG TABLET. PO SCH (07:22)
[2022-04-06] MEDS: QUEtiapine 100 MG TABLET. PO SCH (07:22)
[2022-04-06] MEDS: METOPROLOL SUCC 24HR ER 50 MG TAB.ER.24H. PO SCH (07:22)
[2022-04-06 16:08] VITALS: BP 124/76
--- NOTE | 2022-04-06 19:02 | PN ---
DATE: 04/06/2022 SUBJECTIVE: The patient was seen today, met with the staff, chart reviewed. I am covering for Dr. Barrera. Staff reports that he is confused most of the time, but calm, has disorganized thinking. No major behavioral problems. He is compliant with the medications. The patient is needing assistance with ADLs. OBSERVATION: VITAL SIGNS: Temperature 96.7, blood pressure 166/93, pulse 66, respirations 18, O2 sat 95%. GENERAL: Slept about 7 hours last night. CURRENT MEDICATIONS: Depakote 250 mg in the morning, Zoloft 100 mg daily, mirtazapine 7.5 mg at night, Seroquel 50 mg at night and lorazepam 15 mg at night. LABORATORY DATA: The patient's lab reviewed. ASSESSMENT: Major neurocognitive disorder, most likely Alzheimer's versus vascular with the depression, delusions and behavioral disturbances. PLAN: To continue with the treatment. LENGTH OF STAY: Three to four days. EHSAN DR: Gifty TID: [id number]
[2022-04-06] MEDS: ATORVASTATIN CALCIUM 20 MG TABLET PO SCH (20:18)
[2022-04-06] MEDS: QUEtiapine 50 MG TABLET. PO SCH (20:18)
[2022-04-06] MEDS: TEMAZEPAM 15 MG CAPSULE PO SCH (20:18)
[2022-04-06] MEDS: MIRTAZAPINE 7.5 MG TABLET. PO SCH (20:18)
[2022-04-07 05:38] VITALS: BP 140/73
[2022-04-07 07:27] LABS: BACTERIA,URINE 0 /HPF (0-FEW); CLARITY,URINE CLEAR; COLOR,URINE YELLOW; GLUCOSE,URINE NEG (NEG); NITRITE,URINE NEG (NEG); RBC,URINE OCC /HPF (0-2); SQUAMOUS EPITHELIAL CELL,UR FEW /LPF; UROBILINOGEN,URINE 0.2 mg/dL (0.2 mg/dL); WBC,URINE OCC /HPF (0-4)
[2022-04-07] MEDS: DIVALPROEX 125 MG CAP.SPRINK PO SCH ×2 (07:51→17:14)
[2022-04-07] MEDS: GLUCOSAMINE/CHOND 500/400MG CAPSULE PO SCH (07:51)
[2022-04-07] MEDS: MULTIVITAMIN with MINERAL TABLET. PO SCH (07:51)
[2022-04-07] MEDS: METOPROLOL SUCC 24HR ER 50 MG TAB.ER.24H. PO SCH (07:51)
[2022-04-07] MEDS: QUEtiapine 100 MG TABLET. PO SCH (07:52)
[2022-04-07] MEDS: SERTRALINE 50 MG TABLET. PO SCH (07:52)
[2022-04-07] MEDS: ACETAMINOPHEN 325 MG TABLET PO PRN (12:40)
[2022-04-07 16:14] VITALS: BP 130/64
[2022-04-07] MEDS: MIRTAZAPINE 7.5 MG TABLET. PO SCH (20:45)
[2022-04-07] MEDS: ATORVASTATIN CALCIUM 20 MG TABLET PO SCH (20:45)
[2022-04-07] MEDS: QUEtiapine 50 MG TABLET. PO SCH (20:45)
[2022-04-07] MEDS: TEMAZEPAM 15 MG CAPSULE PO SCH (20:45)
--- NOTE | 2022-04-08 00:02 | PN ---
DATE: 04/07/2022 SUBJECTIVE: The patient was seen today, met with the staff. Chart was reviewed and covering for Dr. Barrera. The patient's behavior has changed this morning. Apparently, was threatening towards the staff and they checked the urine for any UTI. It was negative. He also complained of pain in his right foot. OBSERVATION: VITAL SIGNS: Temperature 97.8, blood pressure 130/64, pulse 73, respirations 16, O2 sat 95%. GENERAL: Slept about 7 hours last night. The patient's appetite is fair. CURRENT MEDICATIONS: Depakote 250 mg in the morning, Zoloft 100 mg daily, mirtazapine 7.5 mg at night, Seroquel 50 mg at night and lorazepam 50 mg at night. The patient is not having any side effects to medications. LABORATORY DATA: The patient's lab reviewed. ASSESSMENT: Major neurocognitive disorder most likely Alzheimer's versus vascular with depression, delusion and behavioral disturbances. PLAN: To continue with the treatment. LENGTH OF STAY: Three to four days. MAHAMED/REBECCA DR: Gifty TID: [id number]
[2022-04-08 05:40] VITALS: BP 125/77
[2022-04-08] MEDS: DIVALPROEX 125 MG CAP.SPRINK PO SCH ×2 (08:00→17:08)
[2022-04-08] MEDS: QUEtiapine 100 MG TABLET. PO SCH (08:00)
[2022-04-08] MEDS: GLUCOSAMINE/CHOND 500/400MG CAPSULE PO SCH (08:00)
[2022-04-08] MEDS: MULTIVITAMIN with MINERAL TABLET. PO SCH (08:00)
[2022-04-08] MEDS: METOPROLOL SUCC 24HR ER 50 MG TAB.ER.24H. PO SCH (08:00)
[2022-04-08] MEDS: SERTRALINE 50 MG TABLET. PO SCH (08:00)
[2022-04-08 16:10] VITALS: BP 133/77
[2022-04-08] MEDS: MIRTAZAPINE 7.5 MG TABLET. PO SCH (20:09)
[2022-04-08] MEDS: TEMAZEPAM 15 MG CAPSULE PO SCH (20:09)
[2022-04-08] MEDS: ATORVASTATIN CALCIUM 20 MG TABLET PO SCH (20:09)
[2022-04-08] MEDS: QUEtiapine 50 MG TABLET. PO SCH (20:10)
== END 2022-04-09 | DRG 57 ==
LOC: GEROPSY 12:12
PROVIDERS: ADMIT Psychiatry & Neurology Psychiatry; ATTEND Psychiatry & Neurology Psychiatry
DX: G30.9 Alzheimer's disease, unspecified (principal); F01.51 Vascular dementia, unspecified severity, with behavioral disturbance; N18.30 Chronic kidney disease, stage 3 unspecified; F02.81 Dementia in other diseases classified elsewhere, unspecified severity, with behavioral disturbance; I42.9 Cardiomyopathy, unspecified; N39.0 Urinary tract infection, site not specified; F63.9 Impulse disorder, unspecified; F32.A Depression, unspecified; F41.9 Anxiety disorder, unspecified; Z66 Do not resuscitate; Z86.73 Personal history of transient ischemic attack (TIA), and cerebral infarction without residual deficits; Z95.0 Presence of cardiac pacemaker; I12.9 Hypertensive chronic kidney disease with stage 1 through stage 4 chronic kidney disease, or unspecified chronic kidney disease; Z91.83 Wandering in diseases classified elsewhere; Z20.822 Contact with and (suspected) exposure to COVID-19
CPT/HCPCS: 36415; 70450; 71045; 80053; 80061; 80164; 81001; 82140; 82306; 82947; 83036; 83540; 83550; 83735; 84436; 84443; 84480; 84484; 85025; 85379; 86592; 93005; 97163; U0003; 97116; 97530